=== PATIENT | female | born 1955 | race Caucasian/White ===

== ENCOUNTER → 2021-02-10 15:33 | Outpatient (BNVA) | payer OTHER, SELFPAY | PROVIDERS: PCP Internal Medicine; Visit Provider Nurse Practitioner Family | DX: F11.20 Opioid dependence, uncomplicated (principal); M54.12 Radiculopathy, cervical region; M50.30 Other cervical disc degeneration, unspecified cervical region; M47.812 Spondylosis without myelopathy or radiculopathy, cervical region | CPT/HCPCS: 99202 ==

== ENCOUNTER → 2021-03-17 11:00 | Outpatient (BNVA) | payer OTHER, SELFPAY | PROVIDERS: PCP Internal Medicine; Visit Provider Nurse Practitioner Family | DX: M47.812 Spondylosis without myelopathy or radiculopathy, cervical region (principal); M50.30 Other cervical disc degeneration, unspecified cervical region; M54.12 Radiculopathy, cervical region | CPT/HCPCS: 99212 ==

== ENCOUNTER → 2021-04-14 12:59 | Outpatient (BNVA) | payer OTHER, SELFPAY | PROVIDERS: PCP Internal Medicine; Visit Provider Nurse Practitioner Family | DX: Z51.81 Encounter for therapeutic drug level monitoring (principal); F11.20 Opioid dependence, uncomplicated; M47.812 Spondylosis without myelopathy or radiculopathy, cervical region; M50.30 Other cervical disc degeneration, unspecified cervical region; M54.12 Radiculopathy, cervical region | CPT/HCPCS: 99212 ==

== ENCOUNTER → 2021-05-12 11:03 | Outpatient (BNVA) | payer OTHER, SELFPAY | PROVIDERS: PCP Internal Medicine; Visit Provider Nurse Practitioner Family | DX: Z51.81 Encounter for therapeutic drug level monitoring (principal); F11.20 Opioid dependence, uncomplicated | CPT/HCPCS: 99212 ==

== ENCOUNTER → 2021-06-09 11:29 | Outpatient (BNVA) | payer OTHER, SELFPAY | PROVIDERS: PCP Internal Medicine; Visit Provider Nurse Practitioner Family | DX: M47.812 Spondylosis without myelopathy or radiculopathy, cervical region (principal); M50.30 Other cervical disc degeneration, unspecified cervical region; M54.12 Radiculopathy, cervical region; M25.561 Pain in right knee; M25.562 Pain in left knee; M96.1 Postlaminectomy syndrome, not elsewhere classified; Z79.899 Other long term (current) drug therapy | CPT/HCPCS: 99212 ==

== ENCOUNTER → 2021-07-07 11:33 | Outpatient (BNVA) | payer OTHER, SELFPAY | PROVIDERS: PCP Internal Medicine; Visit Provider Nurse Practitioner Family | DX: Z51.81 Encounter for therapeutic drug level monitoring (principal); M96.1 Postlaminectomy syndrome, not elsewhere classified; M47.812 Spondylosis without myelopathy or radiculopathy, cervical region; M50.30 Other cervical disc degeneration, unspecified cervical region; R51.9 Headache, unspecified; G89.29 Other chronic pain; Z79.891 Long term (current) use of opiate analgesic | CPT/HCPCS: 99212 ==

== ENCOUNTER → 2021-08-04 11:28 | Outpatient (BNVA) | payer OTHER, SELFPAY | PROVIDERS: PCP Internal Medicine; Visit Provider Nurse Practitioner Family | DX: Z79.891 Long term (current) use of opiate analgesic (principal) | CPT/HCPCS: 99211 ==

== ENCOUNTER → 2021-09-01 11:08 | Outpatient (BNVA) | payer OTHER, SELFPAY | PROVIDERS: PCP Internal Medicine; Visit Provider Nurse Practitioner Family | DX: M96.1 Postlaminectomy syndrome, not elsewhere classified (principal); M47.22 Other spondylosis with radiculopathy, cervical region; M50.30 Other cervical disc degeneration, unspecified cervical region; Z79.891 Long term (current) use of opiate analgesic | CPT/HCPCS: 99212 ==

== ENCOUNTER → 2021-09-29 10:30 | Outpatient (BNVA) | payer OTHER, SELFPAY | PROVIDERS: PCP Internal Medicine; Visit Provider Nurse Practitioner Family | DX: Z51.81 Encounter for therapeutic drug level monitoring (principal); F11.20 Opioid dependence, uncomplicated; R51.9 Headache, unspecified; G89.29 Other chronic pain; M25.561 Pain in right knee; M25.562 Pain in left knee; M96.1 Postlaminectomy syndrome, not elsewhere classified; M47.812 Spondylosis without myelopathy or radiculopathy, cervical region; M50.30 Other cervical disc degeneration, unspecified cervical region; M54.12 Radiculopathy, cervical region; M25.511 Pain in right shoulder; Z79.891 Long term (current) use of opiate analgesic | CPT/HCPCS: 99212 ==

== ENCOUNTER → 2021-10-25 10:32 | Outpatient (BNVA) | payer OTHER, SELFPAY | PROVIDERS: PCP Internal Medicine; Visit Provider Nurse Practitioner Family | DX: M47.22 Other spondylosis with radiculopathy, cervical region (principal); M96.1 Postlaminectomy syndrome, not elsewhere classified; M50.30 Other cervical disc degeneration, unspecified cervical region; G89.29 Other chronic pain; R51.9 Headache, unspecified; Z79.891 Long term (current) use of opiate analgesic | CPT/HCPCS: 99212 ==

== ENCOUNTER → 2021-11-22 11:01 | Outpatient (BNVA) | payer OTHER, SELFPAY | PROVIDERS: PCP Internal Medicine; Visit Provider Nurse Practitioner Family | DX: Z79.891 Long term (current) use of opiate analgesic (principal) | CPT/HCPCS: 99211 ==

== ENCOUNTER → 2021-12-22 11:34 | Outpatient (BNVA) | payer OTHER, SELFPAY | PROVIDERS: PCP Internal Medicine; Visit Provider Nurse Practitioner Family | DX: M96.1 Postlaminectomy syndrome, not elsewhere classified (principal); M47.812 Spondylosis without myelopathy or radiculopathy, cervical region; M54.12 Radiculopathy, cervical region; M50.30 Other cervical disc degeneration, unspecified cervical region; M70.61 Trochanteric bursitis, right hip; M70.62 Trochanteric bursitis, left hip; Z79.891 Long term (current) use of opiate analgesic | CPT/HCPCS: 99212 ==

== ENCOUNTER → 2022-01-19 11:24 | Outpatient (BNVA) | payer OTHER, SELFPAY | PROVIDERS: PCP Internal Medicine; Visit Provider Nurse Practitioner Family | DX: Z51.81 Encounter for therapeutic drug level monitoring (principal); F11.20 Opioid dependence, uncomplicated | CPT/HCPCS: 99211 ==

== ENCOUNTER → 2022-02-13 11:32 | Outpatient (BNVA) | payer OTHER, SELFPAY | PROVIDERS: PCP Internal Medicine; Visit Provider Nurse Practitioner Family | DX: M96.1 Postlaminectomy syndrome, not elsewhere classified (principal); M47.812 Spondylosis without myelopathy or radiculopathy, cervical region; M50.30 Other cervical disc degeneration, unspecified cervical region; M25.561 Pain in right knee; M25.562 Pain in left knee; Z79.891 Long term (current) use of opiate analgesic | CPT/HCPCS: 99212 ==

== ENCOUNTER → 2022-03-13 11:29 | Outpatient (BNVA) | payer OTHER, SELFPAY | PROVIDERS: PCP Internal Medicine; Visit Provider Nurse Practitioner Family | DX: Z51.81 Encounter for therapeutic drug level monitoring (principal); F11.20 Opioid dependence, uncomplicated | CPT/HCPCS: 99211 ==

== ENCOUNTER → 2022-04-10 11:01 | Outpatient (BNVA) | payer OTHER, SELFPAY | PROVIDERS: PCP Internal Medicine; Visit Provider Nurse Practitioner Family | DX: M96.1 Postlaminectomy syndrome, not elsewhere classified (principal); M47.812 Spondylosis without myelopathy or radiculopathy, cervical region; M50.30 Other cervical disc degeneration, unspecified cervical region; M25.561 Pain in right knee; M25.562 Pain in left knee; Z79.891 Long term (current) use of opiate analgesic | CPT/HCPCS: 99212 ==

== ENCOUNTER → 2022-05-08 10:59 | Outpatient (BNVA) | payer OTHER, SELFPAY | PROVIDERS: PCP Internal Medicine; Visit Provider Nurse Practitioner Family | DX: Z51.81 Encounter for therapeutic drug level monitoring (principal); F11.20 Opioid dependence, uncomplicated | CPT/HCPCS: 99211 ==

== ENCOUNTER → 2022-06-12 11:01 | Outpatient (BNVA) | payer OTHER, SELFPAY | PROVIDERS: PCP Internal Medicine; Visit Provider Nurse Practitioner Family | DX: Z51.81 Encounter for therapeutic drug level monitoring (principal); M96.1 Postlaminectomy syndrome, not elsewhere classified; M47.812 Spondylosis without myelopathy or radiculopathy, cervical region; M50.30 Other cervical disc degeneration, unspecified cervical region; M25.561 Pain in right knee; M25.562 Pain in left knee; Z79.891 Long term (current) use of opiate analgesic | CPT/HCPCS: 99212 ==

== ENCOUNTER → 2022-07-17 11:34 | Outpatient (BNVA) | payer OTHER, SELFPAY | PROVIDERS: PCP Internal Medicine; Visit Provider Nurse Practitioner Family | DX: Z51.81 Encounter for therapeutic drug level monitoring (principal); M96.1 Postlaminectomy syndrome, not elsewhere classified; M47.812 Spondylosis without myelopathy or radiculopathy, cervical region; M50.30 Other cervical disc degeneration, unspecified cervical region; M25.561 Pain in right knee; M25.562 Pain in left knee; Z79.891 Long term (current) use of opiate analgesic | CPT/HCPCS: 99212 ==

== ENCOUNTER → 2022-08-23 11:33 | Outpatient (BNVA) | payer OTHER, SELFPAY | PROVIDERS: PCP Internal Medicine; Visit Provider Nurse Practitioner Family | DX: M96.1 Postlaminectomy syndrome, not elsewhere classified (principal); M47.812 Spondylosis without myelopathy or radiculopathy, cervical region; M50.30 Other cervical disc degeneration, unspecified cervical region; M25.561 Pain in right knee; M25.562 Pain in left knee; M62.838 Other muscle spasm; Z79.891 Long term (current) use of opiate analgesic | CPT/HCPCS: 99212 ==

== ENCOUNTER 2022-09-27 11:38 | Outpatient (AMB) | payer OTHER, SELFPAY ==
[2022-09-27 11:42] VITALS: BP 126/64; PULSE 76; RESP 14; O2SAT 97; BMI 36.7
--- NOTE | 2022-09-27 11:42 | MHC.OFFVIS ---
Intake Vital Signs 09/27/22 11:42 Height 5 ft 2 in Weight 200 lb 8 oz BMI 36.7 BP 126/64 Blood Pressure Location Lt brachial Position Sitting Respiration 14 Pulse 76 Pulse Source Pulse Oximeter Pulse Oximetry (%) 97 Oxygen Delivery Method Room Air Intake Visit Reasons: PILL COUNT Allergies latex Allergy (Mild, Verified 09/27/22 11:43) burning Penicillins Allergy (Mild, Verified 09/27/22 11:43) Rash Sulfa (Sulfonamide Antibiotics) Allergy (Mild, Verified 09/27/22 11:43) Rash HPI HPI Comments History of Present Illness Details Vivian is a very pleasant 67 year old female who presents to the office today for follow up chronic back pain and chronic opioid therapy management. Patient is prescribed hydrocodone acetaminophen 5-325mg take 1 tablet twice a day as needed. Patient arrived today with the expectation of having 54 pills, she presented 58.5 pills which were counted in the presence of two staff members and returned to the patient in the original prescription bottle. This demonstrates responsible attitude toward patient's opioid medications. Pain is reported today as 3/10 and last dose of pain medication was taken at 09:00 this morning. Pain is well managed on current opioid regimen. Patient denies any recent changes or exacerbations of chronic back pain and states she is able to engage in activities of daily living with minimal interruption due to chronic pain. Patient denies side effects including somnolence, constipation, itching, dyspnea, rash, dizziness or weakness. She would like to work on tapering down her dose and has started to take 1/2 pill in the morning and is tolerating well. She has been more active, swimming and exercising in her pool. She has lost some weight and is feeling good. Prior: Patient returns today for a pill count. Patient is supposed to have #52 pills, in her possession has #53 pills. This demonstrates a responsible attitude in regards to the medication regimen. Patient reports mild to moderate relief on her regimen. She takes Meloxicam for breakthrough pain related to bilateral knee pain with outdoor activities and gardening. Patient reports tizanidine is causing her significant dry mouth and request to change this to Flexeril as this has worked well in the past. Denies any fever, abdominal pain or groin, constipation, nausea, sedation, dizziness, or urinary retention. Patient states opioid medication allows her to be more functional and less symptomatic. Patient is not interested in interventional treatments for her pain generators at this time. [facility] Medical History Anxiety Arthritis Chronic headaches Degeneration of lumbar intervertebral disc Depression Fibromyalgia Obesity (BMI 35.0-39.9 without comorbidity) Osteoporosis Review of Systems Const All systems reviewed & are unremarkable except as noted in HPI and below Physical Exam Vital Signs: Last Vital Signs Pulse 76 09/27/22 11:42 Resp 14 09/27/22 11:42 BP 126/64 09/27/22 11:42 Pulse Ox 97 09/27/22 11:42 Oxygen Delivery Method Room Air 09/27/22 11:42 BMI result Body Mass Index 36.7 General: awake, alert, oriented. Answers questions appropriately. Fully engaged in examination. Skin: warm, dry, intact without visible rashes or lesions. HEENT: Normocephalic. Conjuntivae clear without exudate. Sclera non-icteric. Hearing intact. Cardiac: External chest normal in appearance. Respiratory: No signs of trauma. No signs of respiratory distress. No cough, audible wheezing or stridor. Abdomen: without gross distension. MS: No obvious swelling or deformities. Able to transition from sit to stand unassisted. Ambulates with bilaterally normal heel strike and toe off Neurological: Oriented to person, place, time and situation. Thought process intact. No gait abnormalities appreciated. Psychiatric: Appropriate mood and affect. Good judgment and insight. 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 No obvious signs of diversion, abuse or misuse of the opioid medications. Patient trying to taper down on her dose and would like to try hydrocodone-acetaminophen 5-325mg 1.5tabs daily before next visit utilizing her current prescription that was filled 09/24/2022. She will follow up before next refill is due to discuss how she is tolerating the lower dose. Will send next prescription at that time for decreased quantity pending patient's response. If she is unable to adequately manage her pain on the lower dose will remain on 2 tabs daily as needed and her current prescription will be refilled. Patient to follow-up in the office in 1 month, sooner if needed. All questions and concerns have been answered and patient agrees with the plan. Coding Level of Care Code Est Pt Level 3 (17546) Diagnoses Post laminectomy syndrome M96.1 Spondylosis of cervical spine M47.812 Other cervical disc degeneration, unspecified cervical region M50.30 Opioid contract exists Z79.891 Bilateral knee pain M25.561; M25.562 Muscle spasm M62.838
== END 2022-09-27 11:48 | disposition home or self-care (01) ==
PROVIDERS: PCP Internal Medicine; Visit Provider Registered Nurse Emergency
DX: M96.1 Postlaminectomy syndrome, not elsewhere classified (principal); M47.812 Spondylosis without myelopathy or radiculopathy, cervical region; M50.30 Other cervical disc degeneration, unspecified cervical region; Z79.891 Long term (current) use of opiate analgesic; M25.561 Pain in right knee; M25.562 Pain in left knee; M62.838 Other muscle spasm
CPT/HCPCS: 99213

== ENCOUNTER → 2022-09-27 11:38 | Outpatient (BNVA) | payer OTHER, SELFPAY | PROVIDERS: PCP Internal Medicine; Visit Provider Registered Nurse Emergency | DX: Z51.81 Encounter for therapeutic drug level monitoring (principal); M96.1 Postlaminectomy syndrome, not elsewhere classified; M47.812 Spondylosis without myelopathy or radiculopathy, cervical region; M50.30 Other cervical disc degeneration, unspecified cervical region; M25.561 Pain in right knee; M25.562 Pain in left knee; M62.838 Other muscle spasm; Z79.891 Long term (current) use of opiate analgesic | CPT/HCPCS: 99212 ==

== ENCOUNTER 2022-10-25 10:06 | Outpatient (AMB) | payer OTHER, SELFPAY ==
--- NOTE | 2022-10-25 10:09 | MHC.OFFVIS ---
Intake Vital Signs 10/25/22 10:16 Height 5 ft 2 in Weight 199 lb 4 oz BMI 36.4 BP 131/71 Blood Pressure Location Rt brachial Position Sitting Pulse 63 Pulse Source Pulse Oximeter Pulse Oximetry (%) 97 Oxygen Delivery Method Room Air Intake Visit Reasons: PILL COUNT Intake Note: Vivian comes in today for a pill count to hydrocodone-acetaminophen. Patient should have 0 tablets and presents with 8.5 tablets which she last took today 10/25/22 at 9am. Pain today 04/13. Sprayer Leather Required: No Accompanied by: Self / Same As Patient Allergies latex Allergy (Mild, Verified 10/25/22 10:16) burning Penicillins Allergy (Mild, Verified 10/25/22 10:16) Rash Sulfa (Sulfonamide Antibiotics) Allergy (Mild, Verified 10/25/22 10:16) Rash HPI HPI Comments History of Present Illness Details Patient returns today for a pill count. Patient is supposed to have #0 pills, in her possession has #8.5 pills. This demonstrates a responsible attitude in regards to the medication regimen. Patient reports adequate analgesia on her current regimen. She takes Meloxicam for breakthrough pain related to bilateral knee pain with outdoor activities, gardening and walking. Patient reports she attemtped to titrate down to once daily dose but finds that on most days due to summer activities and walking she continues to require 1.5-2 tabs per day for increase in her bilateral knee and low back pain. Patient reports Flexeril has been working much better for her than than tizanidine. Denies any fever, abdominal pain or groin, constipation, nausea, sedation, dizziness, or urinary retention. Patient states opioid medication allows her to be more functional and less symptomatic. [facility] Medical History Anxiety Arthritis Chronic headaches Degeneration of lumbar intervertebral disc Depression Fibromyalgia Obesity (BMI 35.0-39.9 without comorbidity) Osteoporosis Review of Systems Const All systems reviewed & are unremarkable except as noted in HPI and below Physical Exam Vital Signs: Last Vital Signs Pulse 63 10/25/22 10:16 BP 131/71 10/25/22 10:16 Pulse Ox 97 10/25/22 10:16 Oxygen Delivery Method Room Air 10/25/22 10:16 BMI result Body Mass Index 36.4 General: Appears afebrile. Alert and oriented. Mood and affect appropriate. Follows and participates in conversation appropriately. Respiratory effort is unlabored. Able to transition from sit to stand unassisted. Ambulates with bilaterally normal heel strike and toe off. Psych Appearance: grossly normal and well kempt Mental Status: mental status grossly normal Speech and movement: Normal speech and movement present Affect: normal affect Attitude: cooperative Thought process: Normal thought process present Thought content: Normal thought content present, suicidality (none), no hallucinations and No Depressive thoughts present Insight: Good insight present (Psych) Judgement: Good judgement present (Psych) Assessment & Plan Assessment & Plan (1) Post laminectomy syndrome: Code(s): M96.1 - Postlaminectomy syndrome, not elsewhere classified (2) Spondylosis of cervical spine: Code(s): M47.812 - Spondylosis without myelopathy or radiculopathy, cervical region (3) Other cervical disc degeneration, unspecified cervical region: Code(s): M50.30 - Other cervical disc degeneration, unspecified cervical region (4) Opioid contract exists: Code(s): Z79.891 - [facility] (current) use of opiate analgesic (5) Bilateral knee pain: Code(s): M25.561 - Pain in right knee; M25.562 - Pain in left knee (6) Muscle spasm: Code(s): M62.838 - Other muscle spasm Plan Patient has shown accountability for her medication regimen and the pill count was accurate. There is no evidence of misuse, abuse or diversion at this time. MassPat reviewed. Adequate analgesia without adverse effects, will continue current regime of twice daily as needed. Script for hydrocodone-acetaminophen 5-325 mg BID prn sent today. All questions were answered and the patient is in agreement with the plan. Follow up for a pill count or sooner if needed. Medications: Refilled hydrocodone-acetaminophen 5-325 mg Partial Fill upon patient request. 1 tab PO BID PRN 60 tabs 0RF pain 30 days M47.812 - Spondylosis without myelopathy or radiculopathy, cervical region, M96.1 - Postlaminectomy syndrome, not elsewhere classified, Z79.891 - long term care phlebotomist (current) use of opiate analgesic Coding Level of Care Code Est Pt Level 4 (04902) Diagnoses Post laminectomy syndrome M96.1 Spondylosis of cervical spine M47.812 Other cervical disc degeneration, unspecified cervical region M50.30 Opioid contract exists Z79.891 Bilateral knee pain M25.561; M25.562 Muscle spasm M62.838
[2022-10-25 10:16] VITALS: BP 131/71; PULSE 63; O2SAT 97; BMI 36.4
== END 2022-10-25 10:27 | disposition home or self-care (01) ==
PROVIDERS: PCP Internal Medicine; Visit Provider Nurse Practitioner Family
DX: M96.1 Postlaminectomy syndrome, not elsewhere classified (principal); M47.812 Spondylosis without myelopathy or radiculopathy, cervical region; M50.30 Other cervical disc degeneration, unspecified cervical region; Z79.891 Long term (current) use of opiate analgesic; M25.561 Pain in right knee; M25.562 Pain in left knee; M62.838 Other muscle spasm
CPT/HCPCS: 99214

== ENCOUNTER → 2022-10-25 10:06 | Outpatient (BNVA) | payer OTHER, SELFPAY | PROVIDERS: PCP Internal Medicine; Visit Provider Nurse Practitioner Family | DX: M96.1 Postlaminectomy syndrome, not elsewhere classified (principal); M47.812 Spondylosis without myelopathy or radiculopathy, cervical region; M50.30 Other cervical disc degeneration, unspecified cervical region; M25.561 Pain in right knee; M25.562 Pain in left knee; M62.838 Other muscle spasm; Z79.891 Long term (current) use of opiate analgesic | CPT/HCPCS: 99212 ==

== ENCOUNTER 2022-11-22 10:35 | Outpatient (AMB) | payer OTHER, SELFPAY ==
--- NOTE | 2022-11-22 10:37 | MHC.OFFVIS ---
Intake Vital Signs 11/22/22 10:45 Height 5 ft 2 in Weight 199 lb 4 oz BMI 36.4 BP 177/82 H Blood Pressure Location Rt brachial Position Sitting Pulse 63 Pulse Source Pulse Oximeter Pulse Oximetry (%) 98 Oxygen Delivery Method Room Air Intake Visit Reasons: Pill Count/Lvm Intake Note: Vivian comes in today for a pill count to hydrocodone-acetaminophen, patient should have 2 tablets and presents with 9.5 tablets which she last took 1/2 tablet today 11/22/22 at 10am. Filling Separator Required: No Accompanied by: Self / Same As Patient Allergies latex Allergy (Mild, Verified 11/22/22 10:44) burning Penicillins Allergy (Mild, Verified 11/22/22 10:44) Rash Sulfa (Sulfonamide Antibiotics) Allergy (Mild, Verified 11/22/22 10:44) Rash HPI HPI Comments History of Present Illness Details Patient returns today for a pill count. Patient is supposed to have #2 pills, in her possession has #9.5 pills. This demonstrates a responsible attitude in regards to the medication regimen. Patient reports inadequate analgesia on her current regimen due to recent back strain injury. She tried to manage her acute symptoms with back bracing, NSAIDs and Flexeril at night with some relief in her symptoms. Reports back muscle spasming and stiffness during the day but cannot tolerate Flexeril at daytime due to drowsiness. Denies any fever, abdominal pain or groin, constipation, nausea, sedation, dizziness, urinary retention, weakness, numbness, tingling, bladder or bowel dysfunction or saddle anesthesia. Patient reports she has been under increased stress lately due to ongoing illness of her brother. She reports increased neck pain with muscle spasms. Patient states current opioid medication does not relieve most of her pain but allows her to be more functional and less symptomatic. [facility] Medical History Degeneration of lumbar intervertebral disc Obesity (BMI 35.0-39.9 without comorbidity) Chronic headaches Fibromyalgia Arthritis Anxiety Depression Osteoporosis Review of Systems Const All systems reviewed & are unremarkable except as noted in HPI and below Physical Exam Vital Signs: Last Vital Signs Pulse 63 11/22/22 10:45 BP 177/82 H 11/22/22 10:45 Pulse Ox 98 11/22/22 10:45 Oxygen Delivery Method Room Air 11/22/22 10:45 BMI result Body Mass Index 36.4 General: Appears afebrile. Alert and oriented. Mood and affect appropriate. Follows and participates in conversation appropriately. Respiratory effort is unlabored. Able to transition from sit to stand unassisted. Ambulates with bilaterally normal heel strike and toe off. Back/Spine/Pelvis Cervical Spine: cervical ROM normal, cervical muscular tenderness and No Cervical spine tenderness Thoracic/Lumbar Spine: thoracic and lumbar spine normal to inspection, Lasegue's sign negative, straight leg raise negative bilaterally, pain with thoraco-lumbar ROM, paraspinal muscle tenderness on the right greater than left, No thoracic spinal tenderness and lumbar spinal tenderness (right side) at L4 and at L5 Pelvis: no buttock tenderness and no sciatic notch tenderness Sacroiliac joints: on the right tender to palpation and on the left nontender Psych Appearance: grossly normal and well kempt Mental Status: mental status grossly normal Speech and movement: Normal speech and movement present Affect: normal affect Attitude: cooperative Thought process: Normal thought process present Thought content: Normal thought content present, suicidality (none), no hallucinations and No Depressive thoughts present Insight: Good insight present (Psych) Judgement: Good judgement present (Psych) Assessment & Plan Assessment & Plan (1) Muscle spasm: Code(s): M62.838 - Other muscle spasm (2) Other cervical disc degeneration, unspecified cervical region: Code(s): M50.30 - Other cervical disc degeneration, unspecified cervical region (3) Spondylosis of cervical spine: Code(s): M47.812 - Spondylosis without myelopathy or radiculopathy, cervical region (4) Post laminectomy syndrome: Code(s): M96.1 - Postlaminectomy syndrome, not elsewhere classified (5) Opioid contract exists: Code(s): Z79.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 There is no evidence of misuse, abuse or diversion at this time. [employer]Pat reviewed. Adequate analgesia without adverse effects, will continue current regime of twice daily as needed. Script for hydrocodone-acetaminophen 5-325 mg BID prn sent with advanced date of 11/27/22. All questions were answered and the patient is in agreement with the plan. Follow up for a pill count or sooner if needed. Medications: New methocarbamol 750 mg PO Q8H 5 days 15 tabs 0RF muscle spasms M47.812 - Spondylosis without myelopathy or radiculopathy, cervical region, M50.30 - Other cervical disc degeneration, unspecified cervical region, M62.838 - Other muscle spasm Refilled hydrocodone-acetaminophen 5-325 mg Partial Fill upon patient request. 1 tab PO BID 30 days PRN 60 tabs 0RF pain M47.812 - Spondylosis without myelopathy or radiculopathy, cervical region, M96.1 - Postlaminectomy syndrome, not elsewhere classified, Z79.891 - senior care (current) use of opiate analgesic Discontinued cyclobenzaprine Discontinued Reason: Patient Completed Course 5 mg PO BID 30 days PRN 60 tabs 1RF muscle spasm M47.812 - Spondylosis without myelopathy or radiculopathy, cervical region, M62.838 - Other muscle spasm, M96.1 - Postlaminectomy syndrome, not elsewhere classified Coding Level of Care Code Est Pt Level 4 (84846) Diagnoses Muscle spasm M62.838 Other cervical disc degeneration, unspecified cervical region M50.30 Spondylosis of cervical spine M47.812 Post laminectomy syndrome M96.1 Opioid contract exists Z79.891
[2022-11-22 10:45] VITALS: BP 177/82; PULSE 63; O2SAT 98; BMI 36.4
== END 2022-11-22 10:58 | disposition home or self-care (01) ==
PROVIDERS: PCP Internal Medicine; Visit Provider Nurse Practitioner Family
DX: M62.838 Other muscle spasm (principal); M50.30 Other cervical disc degeneration, unspecified cervical region; M47.812 Spondylosis without myelopathy or radiculopathy, cervical region; M96.1 Postlaminectomy syndrome, not elsewhere classified; Z79.891 Long term (current) use of opiate analgesic
CPT/HCPCS: 99214

== ENCOUNTER → 2022-11-22 10:35 | Outpatient (BNVA) | payer OTHER, SELFPAY | PROVIDERS: PCP Internal Medicine; Visit Provider Nurse Practitioner Family | DX: M96.1 Postlaminectomy syndrome, not elsewhere classified (principal); M47.812 Spondylosis without myelopathy or radiculopathy, cervical region; M50.30 Other cervical disc degeneration, unspecified cervical region; M62.838 Other muscle spasm; Z79.891 Long term (current) use of opiate analgesic | CPT/HCPCS: 99212 ==

== ENCOUNTER 2022-12-21 10:57 | Outpatient (AMB) | payer OTHER, SELFPAY ==
--- NOTE | 2022-12-21 11:02 | A.OFFVIS_ITS ---
Intake Vital Signs 12/21/22 11:13 Height 5 ft 2 in Weight 200 lb 6 oz BMI 36.6 BP 176/72 H Blood Pressure Location Rt brachial Position Sitting Pulse 71 Pulse Source Pulse Oximeter Pulse Oximetry (%) 97 Oxygen Delivery Method Room Air Intake Visit Reasons: PILL COUNT Intake Note: Vivian comes in today for a pill count to hydrocodone-acetaminophen, patient should have 12 tablets and presents with 7.5 tablets. When asked if she had anymore tabs on her she pulled 2 tablets out of her purse for a total of 9.5 tablets. Unfortunately she is still short 2.5 tablets and will result in a suspension from the opioid program. Medical Office Assistant Required: No Accompanied by: Self / Same As Patient Allergies latex Allergy (Mild, Verified 12/21/22 11:14) burning Penicillins Allergy (Mild, Verified 12/21/22 11:14) Rash Sulfa (Sulfonamide Antibiotics) Allergy (Mild, Verified 12/21/22 11:14) Rash HPI HPI Comments History of Present Illness Details Patient returns today for a pill count. Patient is supposed to have #12 pills, in her possession has #9.5 pills. Unfortunately, this demonstrates an irresponsible attitude towards her medication regimen. Her prescription is for two pills per day, therefore she is short 1.5 days. Patient has expressed frustration with the guidelines per our opioid contract but unfortunately her pill count was short for over 1 day. Patient reports she has more medication at home in another opioid pill bottle. She was made aware per opioid policy, all medication has to be kept in its original container. Given her risk is low, she will be suspended for 6 months. In meantime, patient is aware that she will not be eligible for medical management through this office but she can receive interventional treatments for her pain generators which we previously discussed and can revisit again. [facility] Medical History Degeneration of lumbar intervertebral disc Obesity (BMI 35.0-39.9 without comorbidity) Chronic headaches Fibromyalgia Arthritis Anxiety Depression Osteoporosis Review of Systems Const All systems reviewed & are unremarkable except as noted in HPI and below Physical Exam Vital Signs: Last Vital Signs Pulse 71 12/21/22 11:13 BP 176/72 H 12/21/22 11:13 Pulse Ox 97 12/21/22 11:13 Oxygen Delivery Method Room Air 12/21/22 11:13 BMI result Body Mass Index 36.6 General: Appears afebrile. Alert and oriented. Mood and affect appropriate. Follows and participates in conversation appropriately. Respiratory effort is unlabored. Able to transition from sit to stand unassisted. Ambulates with bilaterally normal heel strike and toe off. Psych Appearance: grossly normal Mental Status: mental status grossly normal Speech and movement: Normal speech and movement present Affect: normal affect Attitude: cooperative Thought process: Normal thought process present Thought content: Normal thought content present, suicidality (none), no hallucinations and Depressive thoughts present Insight: Good insight present (Psych) Judgement: Good judgement present (Psych) Assessment & Plan Assessment & Plan (1) Other cervical disc degeneration, unspecified cervical region: Code(s): M50.30 - Other cervical disc degeneration, unspecified cervical region (2) Spondylosis of cervical spine: Code(s): M47.812 - Spondylosis without myelopathy or radiculopathy, cervical region (3) Post laminectomy syndrome: Code(s): M96.1 - Postlaminectomy syndrome, not elsewhere classified (4) Opioid contract exists: Code(s): Z79.891 - custodial (current) use of opiate analgesic (5) Bilateral knee pain: Code(s): M25.561 - Pain in right knee; M25.562 - Pain in left knee Plan Unfortunately, the patient?s pill count was inaccurate for hydrocodone- acetaminophen, which will result in a suspension. Given his risk is MILD, she will be suspended from the opioid program for 6 months. Patient is aware that she will not be eligible for medical management through this office for this period but she can receive interventional treatments for her pain generators. Patient has expressed frustration and understanding with the guidelines and opioid contract but unfortunately her pill count was short for over 1 day. I will send in a compassionate prescription for hydrocodone-acetaminophen and extend this for 4 weeks in which she will need to taper himself off or follow up with her PCP to take over opioid prescribing for 5 months. Previous script for 30 days has been discontinued. Patient will follow up with us in 6 months to re- enter our opioid program and sooner for interventional treatments as needed. Medications: Changed From hydrocodone-acetaminophen 5-325 mg Partial Fill upon patient request. 1 tab PO BID 30 days PRN 60 tabs 0RF pain M47.812 - Spondylosis without myelopathy or radiculopathy, cervical region, M96.1 - Postlaminectomy syndrome, not elsewhere classified, Z79.891 - custodial (current) use of opiate analgesic To hydrocodone-acetaminophen 5-325 mg Please use this prescription to taper off medication, 4 weeks compassionate prescription. 1 tab PO BID 28 days PRN 56 tabs 0RF pain M47.812 - Spondylosis without myelopathy or radiculopathy, cervical region, M96.1 - Postlaminectomy syndrome, not elsewhere classified, Z79.891 - custodial (current) use of opiate analgesic Refilled hydrocodone-acetaminophen 5-325 mg Partial Fill upon patient request. 1 tab PO BID 30 days PRN 60 tabs 0RF pain M47.812 - Spondylosis without myelopathy or radiculopathy, cervical region, M96.1 - Postlaminectomy syndrome, not elsewhere classified, Z79.891 - custodial (current) use of opiate analgesic Coding Level of Care Code Est Pt Level 4 (98081) Diagnoses Other cervical disc degeneration, unspecified cervical region M50.30 Spondylosis of cervical spine M47.812 Post laminectomy syndrome M96.1 Opioid contract exists Z79.891 Bilateral knee pain M25.561; M25.562
[2022-12-21 11:13] VITALS: BP 176/72; PULSE 71; O2SAT 97; BMI 36.6
== END 2022-12-21 11:19 | disposition home or self-care (01) ==
PROVIDERS: PCP Internal Medicine; Visit Provider Nurse Practitioner Family
DX: M50.30 Other cervical disc degeneration, unspecified cervical region (principal); M47.812 Spondylosis without myelopathy or radiculopathy, cervical region; M96.1 Postlaminectomy syndrome, not elsewhere classified; Z79.891 Long term (current) use of opiate analgesic; M25.561 Pain in right knee; M25.562 Pain in left knee
CPT/HCPCS: 99214

== ENCOUNTER → 2022-12-21 10:57 | Outpatient (BNVA) | payer OTHER, SELFPAY | PROVIDERS: PCP Internal Medicine; Visit Provider Nurse Practitioner Family | DX: M79.7 Fibromyalgia (principal); M51.36 Other intervertebral disc degeneration, lumbar region; M81.0 Age-related osteoporosis without current pathological fracture; M47.812 Spondylosis without myelopathy or radiculopathy, cervical region; M25.562 Pain in left knee; M25.561 Pain in right knee; M96.1 Postlaminectomy syndrome, not elsewhere classified; Z79.891 Long term (current) use of opiate analgesic | CPT/HCPCS: 99212 ==

== ENCOUNTER 2023-07-12 08:58 | Outpatient (AMB) | payer MEDICARE, SELFPAY ==
--- NOTE | 2023-07-12 09:04 | MHC.OFFVIS ---
Vital Signs 07/12/23 09:12 Height 5 ft 2 in Weight 203 lb BMI 37.1 BP 157/74 H Blood Pressure Location Rt brachial Position Sitting Pulse 69 Pulse Source Pulse Oximeter Pulse Oximetry (%) 98 Oxygen Delivery Method Room Air Intake Visit Reasons: RE-ENTERING OPIOID PROGRAM AFTER SUSPENSION Intake Note: Pain today 05/11 Patient states that the last time Allergies latex Allergy (Mild, Verified 07/12/23 09:13) burning Penicillins Allergy (Mild, Verified 07/12/23 09:13) Rash Sulfa (Sulfonamide Antibiotics) Allergy (Mild, Verified 07/12/23 09:13) Rash HPI Comments Details: Patient presents today for re-entrance into opioid program. Patient has chronic pain syndrome, fibromyalgia, cervical and lumbar arthritis, shoulder pain. She has received multiple cortisone injections in the past through another Pain clinic with mild and temporary pain relief. Given history of osteoporosis, patient is not a candidate for therapeutic steroidal injections. We reviewed interventional treatments, including neuromodulation with SCS vs PNS trials and RFA procedures that do not require steroidal injections. Patient reports she has been managing her chronic pain with Tylenol, meloxicam and heat/ice therapies. She reports weight gain and decreased physical activity due to daily pain. Denies any recent cough, cold, infection, fever, any significant changes in her medical history, medications or recent hospitalizations.? On evaluation, it was determined that there was a continued need to continue palliative chronic opioid prescribing. Risks and benefits were discussed with the patient. She believes she was more functional and less symptomatic on chronic opioids. Patient also wants to avoid daily NSAID use. MassPAT was reviewed and is consistent with her history. PHQ-9 SCORE: 8 OPIOID RISK STRATIFICATION SURVEY SCORE: 15 Given this, she is deemed to be a MODERATE RISK for chronic opioid addiction. Educated patient on loan secretary effects of opioid use including sexual dysfunction, cardiac, renal and immunosuppressive effects. The patient understands that the medication she is requesting is an opioid, which carries risks of dependence, tolerance, hyperalgesia, addiction, respiratory failure and possibly . She verbalized understanding of this and accepts these risks on her own volition. The patient accepts the responsibility to adhere to the medication use agreement. There is no evidence of misuse, abuse or diversion at this time. She is aware she will be required to attend monthly pill counts and if there are any discrepancies, because of his risk of addiction he will be suspended for ONE YEAR. PRIOR 12/21/22: Patient returns today for a pill count. Patient is supposed to have #12 pills, in her possession has #9.5 pills. Unfortunately, this demonstrates an irresponsible attitude towards her medication regimen. Her prescription is for two pills per day, therefore she is short 1.5 days. Patient has expressed frustration with the guidelines per our opioid contract but unfortunately her pill count was short for over 1 day. Patient reports she has more medication at home in another opioid pill bottle. She was made aware per opioid policy, all medication has to be kept in its original container. Given her risk is low, she will be suspended for 6 months. In meantime, patient is aware that she will not be eligible for medical management through this office but she can receive interventional treatments for her pain generators which we previously discussed and can revisit again. [facility] Medical History (Updated 07/12/23 @ 09:55 by JAYANT Judge) Degeneration of lumbar intervertebral disc Obesity (BMI 35.0-39.9 without comorbidity) Chronic headaches Fibromyalgia Arthritis Anxiety Depression Osteoporosis Review of Systems Const All systems reviewed & are unremarkable except as noted in HPI and below Physical Exam Vital Signs: Last Vital Signs Pulse 69 07/12/23 09:12 BP 157/74 H 07/12/23 09:12 Pulse Ox 98 07/12/23 09:12 Oxygen Delivery Method Room Air 07/12/23 09:12 BMI result Body Mass Index 37.1 General: Appears afebrile. Alert and oriented. Mood and affect appropriate. Follows and participates in conversation appropriately. Respiratory effort is unlabored. No cough. Able to transition from sit to stand unassisted. Ambulates with bilaterally normal heel strike and toe off. Back/Spine/Pelvis Other: Limited lumbar ROM due to pain. Lumbar flexion and extension reproduces mild symptoms. Painful facet loading. Multiple widespread TTPs 16/16 bilaterally, including upper and lower extremities, consistent with fibromyalgia. Cervical Spine: cervical muscular tenderness, pain with cervical ROM and No Cervical spine tenderness Thoracic/Lumbar Spine: thoracic and lumbar spine normal to inspection, pain with thoraco-lumbar ROM, paraspinal muscle tenderness, thoraco-lumbar ROM limited, No thoracic spinal tenderness and lumbar spinal tenderness (L3-S1) Psych Appearance: grossly normal and well kempt Mental Status: mental status grossly normal Speech and movement: Normal speech and movement present and Clear speech present Affect: normal affect Attitude: cooperative Thought process: Normal thought process present Thought content: Normal thought content present, suicidality (none), no hallucinations and Depressive thoughts present Insight: Good insight present (Psych) Judgement: Good judgement present (Psych) Quality Reporting (2019) Depression/Bipolar (159/160/161/177) PHQ-9: Total score: 8 Results Reviewed Results Reviewed: Assessment & Plan Assessment & Plan (1) Other cervical disc degeneration, unspecified cervical region: Code(s): M50.30 - Other cervical disc degeneration, unspecified cervical region Category: Medical (2) Spondylosis of cervical spine: Code(s): M47.812 - Spondylosis without myelopathy or radiculopathy, cervical region Category: Medical (3) Post laminectomy syndrome: Code(s): M96.1 - Postlaminectomy syndrome, not elsewhere classified Category: Medical (4) Chronic headaches: Code(s): R51.9 - Headache, unspecified; G89.29 - Other chronic pain Category: Medical (5) Arthritis: Code(s): M19.90 - Unspecified osteoarthritis, unspecified site Category: Medical (6) Fibromyalgia: Code(s): M79.7 - Fibromyalgia Category: Medical (7) Chronic pain syndrome: Code(s): G89.4 - Chronic pain syndrome Category: Medical Plan Patient presents today for re-entrance into Opioid Program after 6 months suspension. On evaluation, it was determined that there was a continued need to continue palliative chronic opioid prescribing. Risks and benefits were discussed with the patient. She believes he was more functional and less symptomatic on chronic opioids. MassPAT was reviewed and is consistent with her history. Patient is sent for UDS today. She will return to office in 2 weeks to discuss UDS results and start medical management. All questions and concerns have been answered and patient agreed with the plan. Follow-up as needed. Coding Level of Care Code Est Pt Level 4 (37929) Diagnoses Other cervical disc degeneration, unspecified cervical region M50.30 Spondylosis of cervical spine M47.812 Post laminectomy syndrome M96.1 Chronic headaches R51.9; G89.29 Arthritis M19.90 Fibromyalgia M79.7 Chronic pain syndrome G89.4 PHQ-9 Over the last 2 weeks, how often have you been bothered by any of the following problems? 1. Little interest or pleasure in doing things: more than half the days 2. Feeling down, depressed, or hopeless: several days 3. Trouble falling or staying asleep, or sleeping too much: several days 4. Feeling tired or having little energy: several days 5. Poor appetite or overeating: several days 6. Feeling bad about yourself - or that you are a failure or have let yourself or your family down: several days 7. Trouble concentrating on things, such as reading the newspaper or watching television: several days 8. Moving or speaking so slowly that other people could have noticed. Or the opposite - being so fidgety or restless that you have been moving around a lot more than usual: not at all 9. Thoughts that you would be better off or of hurting yourself in some way: not at all Total score: 8 Depression Screening Interpretation: Positive Depression Screening Follow-up: In treatment Depression Screening Done: Yes 48480 - PHQ-9 Billing: Yes Source: Developed by Drs. Manny Hylton, Malgorzata Ricketts, Constantine Hooks and colleagues, with an educational jah from [employer]
[2023-07-12 09:12] VITALS: BP 157/74; PULSE 69; O2SAT 98; BMI 37.1
== END 2023-07-12 09:38 | disposition home or self-care (01) ==
PROVIDERS: PCP Internal Medicine; Visit Provider Nurse Practitioner Family
DX: M50.30 Other cervical disc degeneration, unspecified cervical region (principal); M47.812 Spondylosis without myelopathy or radiculopathy, cervical region; M96.1 Postlaminectomy syndrome, not elsewhere classified; R51.9 Headache, unspecified; G89.29 Other chronic pain; M19.90 Unspecified osteoarthritis, unspecified site; M79.7 Fibromyalgia; G89.4 Chronic pain syndrome
CPT/HCPCS: 99214

== ENCOUNTER → 2023-07-12 08:58 | Outpatient (BNVA) | payer OTHER, SELFPAY | PROVIDERS: PCP Internal Medicine; Visit Provider Nurse Practitioner Family | DX: G89.4 Chronic pain syndrome (principal); M50.30 Other cervical disc degeneration, unspecified cervical region; M47.812 Spondylosis without myelopathy or radiculopathy, cervical region; M96.1 Postlaminectomy syndrome, not elsewhere classified; G89.29 Other chronic pain; R51.9 Headache, unspecified; M19.90 Unspecified osteoarthritis, unspecified site; M79.7 Fibromyalgia; Z79.891 Long term (current) use of opiate analgesic | CPT/HCPCS: 99212 ==

== ENCOUNTER 2023-07-26 09:56 | Outpatient (REF) | payer MEDICARE, SELFPAY ==
--- NOTE | ~2023-07-26 | XR_ITS ---
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 COMPARISON: None available. TECHNIQUE: 4 views of the right shoulder. 7 views of the cervical spine. FINDINGS: CERVICAL SPINE: Bones are diffusely demineralized. Straightening of the normal cervical lordosis. Mild anterolisthesis of C3 on C4. Advanced degenerative changes with loss of disc space height and hypertrophic change at C3-C4, C4-C5 and C5-C6. C7 poorly visualized due to overlying soft tissue structures. Bilateral facet hypertrophy with neural foraminal encroachment at C3-C7 levels. RIGHT SHOULDER: [id number] degenerative changes in the acromioclavicular joint with joint space narrowing and hypertrophic change. Faint calcifications adjacent to the humeral head. Mild hypertrophic change along the inferior aspect of the glenohumeral joint. Dextroscoliosis of the imaged upper thoracic spine with multilevel degenerative changes. XR/XR cervical spine min 6V IMPRESSION: 1. Advanced degenerative disc disease at C3-C4, C4-C5 and C5-C6. 2. Moderate degenerative changes in the right shoulder. 3. Dextroscoliosis of the imaged upper thoracic spine with multilevel degenerative changes.
--- NOTE | ~2023-07-26 | XR_ITS ---
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 COMPARISON: None available. TECHNIQUE: 4 views of the right shoulder. 7 views of the cervical spine. FINDINGS: CERVICAL SPINE: Bones are diffusely demineralized. Straightening of the normal cervical lordosis. Mild anterolisthesis of C3 on C4. Advanced degenerative changes with loss of disc space height and hypertrophic change at C3-C4, C4-C5 and C5-C6. C7 poorly visualized due to overlying soft tissue structures. Bilateral facet hypertrophy with neural foraminal encroachment at C3-C7 levels. RIGHT SHOULDER: [id number] degenerative changes in the acromioclavicular joint with joint space narrowing and hypertrophic change. Faint calcifications adjacent to the humeral head. Mild hypertrophic change along the inferior aspect of the glenohumeral joint. Dextroscoliosis of the imaged upper thoracic spine with multilevel degenerative changes. XR/XR shoulder RT min 2V IMPRESSION: 1. Advanced degenerative disc disease at C3-C4, C4-C5 and C5-C6. 2. Moderate degenerative changes in the right shoulder. 3. Dextroscoliosis of the imaged upper thoracic spine with multilevel degenerative changes.
== END 2023-07-26 09:57 | disposition home or self-care (01) ==
LOC: HO.XRAY 09:56
PROVIDERS: PCP Internal Medicine; Visit Provider Nurse Practitioner Family
DX: M47.812 Spondylosis without myelopathy or radiculopathy, cervical region (principal); M50.30 Other cervical disc degeneration, unspecified cervical region; M25.511 Pain in right shoulder; G89.4 Chronic pain syndrome; Z79.891 Long term (current) use of opiate analgesic
CPT/HCPCS: 72052; 73030; 99212

== ENCOUNTER 2023-07-26 09:56 | Outpatient (AMB) | payer MEDICARE, SELFPAY ==
[2023-07-26 10:05] VITALS: BP 161/78; PULSE 73; O2SAT 96; BMI 37.1
--- NOTE | 2023-07-26 10:05 | A.OFFVIS_ITS ---
Vital Signs 07/26/23 10:05 Height 5 ft 2 in Weight 203 lb BMI 37.1 BP 161/78 H Blood Pressure Location Rt brachial Position Sitting Pulse 73 Pulse Source Pulse Oximeter Pulse Oximetry (%) 96 Oxygen Delivery Method Room Air Intake Visit Reasons: 2 week Follow Up Intake Note: Pain today 06/11 Surveillance Supervisor Required: No Accompanied by: Self / Same As Patient Allergies latex Allergy (Mild, Verified 07/26/23 10:06) burning Penicillins Allergy (Mild, Verified 07/26/23 10:06) Rash Sulfa (Sulfonamide Antibiotics) Allergy (Mild, Verified 07/26/23 10:06) Rash HPI Comments Details: Patient returns to the office to discuss her UDS results and start medical management as well as discuss interventional treatments for chronic neck and right shoulder pain. She denies any changes to medications, medical history or recent hospitalizations. UDS was consistent. Per risk assessment, she is at moderate risk for adverse effects from opioids. PHQ score was 15. Detailed risk assessment scanned under activity tab. Contract reviewed and signed. Patient reports chronic neck and right shoulder pain with limited range of motion, stiffness and spasming. She was previously seen at [facility] and received multiple injections with good results as well as underwent Neurosurgical evaluation for significant cervical degenerative disc disease but opted out of surgery. We will proceed with updating her imaging and plan for diagnostic cervical medial branch blocks as initial steps. Patient denies any fever, chills, dizziness, visual changes, shortness of breaths, chest pain, gait imbalance, bladder or bowel dysfunction or saddle anesthesia. PRIOR: Patient presents today for re-entrance into opioid program. Patient has chronic pain syndrome, fibromyalgia, cervical and lumbar arthritis, shoulder pain. She has received multiple cortisone injections in the past through another Pain clinic with mild and temporary pain relief. Given history of osteoporosis, patient is not a candidate for therapeutic steroidal injections. We reviewed interventional treatments, including neuromodulation with SCS vs PNS trials and RFA procedures that do not require steroidal injections. Patient reports she has been managing her chronic pain with Tylenol, meloxicam and heat/ice therapies. She reports weight gain and decreased physical activity due to daily pain. Denies any recent cough, cold, infection, fever, any significant changes in her medical history, medications or recent hospitalizations.? On evaluation, it was determined that there was a continued need to continue palliative chronic opioid prescribing. Risks and benefits were discussed with the patient. She believes she was more functional and less symptomatic on chronic opioids. Patient also wants to avoid daily NSAID use. MassPAT was reviewed and is consistent with her history. PHQ-9 SCORE: 8 OPIOID RISK STRATIFICATION SURVEY SCORE: 15 Given this, she is deemed to be a MODERATE RISK for chronic opioid addiction. Educated patient on emt intermediate effects of opioid use including sexual dysfunction, cardiac, renal and immunosuppressive effects. The patient understands that the medication she is requesting is an opioid, which carries risks of dependence, tolerance, hyperalgesia, addiction, respiratory failure and possibly . She verbalized understanding of this and accepts these risks on her own volition. The patient accepts the responsibility to adhere to the medication use agreement. There is no evidence of misuse, abuse or diversion at this time. She is aware she will be required to attend monthly pill counts and if there are any discrepancies, because of his risk of addiction he will be suspended for ONE YEAR. PRIOR 12/21/22: Patient returns today for a pill count. Patient is supposed to have #12 pills, in her possession has #9.5 pills. Unfortunately, this demonstrates an irresponsible attitude towards her medication regimen. Her prescription is for two pills per day, therefore she is short 1.5 days. Patient has expressed frus tration with the guidelines per our opioid contract but unfortunately her pill count was short for over 1 day. Patient reports she has more medication at home in another opioid pill bottle. She was made aware per opioid policy, all medication has to be kept in its original container. Given her risk is low, she will be suspended for 6 months. In meantime, patient is aware that she will not be eligible for medical management through this office but she can receive interventional treatments for her pain generators which we previously discussed and can revisit again. [facility] Medical History Degeneration of lumbar intervertebral disc Obesity (BMI 35.0-39.9 without comorbidity) Chronic headaches Fibromyalgia Arthritis Anxiety Depression Osteoporosis Review of Systems Const All systems reviewed & are unremarkable except as noted in HPI and below Physical Exam Vital Signs: Last Vital Signs Pulse 73 07/26/23 10:05 BP 161/78 H 07/26/23 10:05 Pulse Ox 96 07/26/23 10:05 Oxygen Delivery Method Room Air 07/26/23 10:05 BMI result Body Mass Index 37.1 General: Appears afebrile. Alert and oriented. Mood and affect appropriate. Follows and participates in conversation appropriately. Respiratory effort is unlabored. No cough. Able to transition from sit to stand unassisted. Ambulates with bilaterally normal heel strike and toe off. Neck Other: Patient with decreased cervical ROM in all planes/especially with left lateral rotation. Reports increased pain with cervical extension and flexion. Spurling compression test negative. Lhermitte's test was negative. DTR intact, +2 and symmetrical. Patient demonstrated 5/5 motor strength of bilateral upper extremities. 2 + radial pulses. Significant tightness throughout left upper trapezius as well as TTP throughout bilateral upper trapezius muscles. No paravertebral tenderness over facet joints bilaterally. Multiple taut bands palpated throughout bilateral upper trapezius muscles. Neck: Yes no lymphadenopathy, Yes supple, No anterior neck swelling, No torticollis and Yes no JVD Back/Spine/Pelvis Other: Limited lumbar ROM due to pain. Lumbar flexion and extension reproduces mild symptoms. Painful facet loading. Multiple widespread TTPs 16/16 bilaterally, including upper and lower extremities, consistent with fibromyalgia. Cervical Spine: loss of normal cervical lordosis, cervical muscular tenderness, pain with cervical ROM, cervical spasm, No Cervical spine tenderness and No step off deformity Thoracic/Lumbar Spine: thoracic and lumbar spine normal to inspection, Lasegue's sign negative, straight leg raise negative bilaterally, pain with thoraco-lumbar ROM, paraspinal muscle tenderness, thoraco-lumbar ROM limited, No thoracic spinal tenderness and lumbar spinal tenderness (L3-S1) Psych Appearance: grossly normal and well kempt Mental Status: mental status grossly normal Speech and movement: Normal speech and movement present and Clear speech present Affect: normal affect Attitude: cooperative Thought process: Normal thought process present Thought content: Normal thought content present, suicidality (none), no hallucinations and Depressive thoughts present Insight: Good insight present (Psych) Judgement: Good judgement present (Psych) Assessment & Plan Assessment & Plan (1) Spondylosis of cervical spine: Code(s): M47.812 - Spondylosis without myelopathy or radiculopathy, cervical region Category: Medical (2) Opioid contract exists: 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 UDS was consistent. Per risk assessment, she is at moderate risk for adverse effects from opioids. PHQ score was 15. Detailed risk assessment scanned under activity tab. Contract reviewed and signed. Script sent for hydrocodone-acetaminophen 5-325 mg once a day per patient's request. She was previously taken BID prn but prefers to take once a day and pursue interventional treatments for her chronic neck and shoulder pain. Script sent today for #15 tabs for 15 days with follow up in 2 weeks. Pharmacy was notified of cancelled extra scripts as noted below. Discussed reasonable expectations for pain relief with the goal for mild, tolerable pain that allows the patient to function. Cervical spine and shoulder imaging to assess degree of degenerative changes, any subluxation, listhesis, compression fractures or pars defects. Briefly discussed diagnostic cervical medial branch blocks for potential Sprint PNS trial versus RFA procedure. Informational pamphlet provided to patient. Continue home exercise program, good posture, adequate hydration, muscle relaxan ts, NSAIDs prn, and topical applications. All questions and concerns have been answered and patient agreed with the treatment plan. Follow-up in 2 weeks for pill count/x-ray results and sooner as needed. Orders: Orders XR cervical spine min 6V Today M47.812 - Spondylosis without myelopathy or radiculopathy, cervical region, M50.30 - Other cervical disc degeneration, unspecified cervical region XR shoulder RT min 2V Today M25.511 - Pain in right shoulder Medications: New naloxone 4 mg/actuation (Narcan) spray 1 dose into ONE nostril; alternate nostrils w each dose until help arrives 4 mg intranasal Q2M PRN 2 ea 0RF opioid overdose G89.4 - Chronic pain syndrome, M47.812 - Spondylosis without myelopathy or radiculopathy, cervical region, M96.1 - Postlaminectomy syndrome, not elsewhere classified, 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 1 tab PO BID 30 days PRN 60 tabs 0RF pain M47.812 - Spondylosis without myelopathy or radiculopathy, cervical region, M96.1 - Postlaminectomy syndrome, not elsewhere classified, Z79.891 - care home (current) use of opiate analgesic To hydrocodone-acetaminophen 5-325 mg Partial Fill upon patient request. 1 tab PO BID 15 days PRN 30 tabs 0RF pain M47.812 - Spondylosis without myelopathy or radiculopathy, cervical region, M96.1 - Postlaminectomy syndrome, not elsewhere classified, Z79.891 - care home (current) use of opiate analgesic From hydrocodone-acetaminophen 5-325 mg Partial Fill upon patient request. 1 tab PO BID 15 days PRN 30 tabs 0RF pain M47.812 - Spondylosis without myelopathy or radiculopathy, cervical region, M96.1 - Postlaminectomy syndrome, not elsewhere classified, Z79.891 - care home (current) use of opiate analgesic To hydrocodone-acetaminophen 5-325 mg Partial Fill upon patient request. 1 tab PO DAILY 15 days PRN 30 tabs 0RF pain M47.812 - Spondylosis without myelopathy or radiculopathy, cervical region, M96.1 - Postlaminectomy syndrome, not elsewhere classified, Z79.891 - care home (current) use of opiate analgesic Refilled hydrocodone-acetaminophen 5-325 mg Partial Fill upon patient request. 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
== END 2023-07-26 10:32 | disposition home or self-care (01) ==
PROVIDERS: PCP Internal Medicine; Visit Provider Nurse Practitioner Family
DX: G89.4 Chronic pain syndrome (principal); M47.812 Spondylosis without myelopathy or radiculopathy, cervical region; M50.30 Other cervical disc degeneration, unspecified cervical region; Z79.891 Long term (current) use of opiate analgesic; M25.511 Pain in right shoulder
CPT/HCPCS: 99214

== ENCOUNTER 2023-08-09 10:34 | Outpatient (AMB) | payer MEDICARE, SELFPAY ==
--- NOTE | 2023-08-09 10:35 | A.OFFVIS_ITS ---
Vital Signs 3 08/09/23 10:41 Height 5 ft 2 in Weight 201 lb 6 oz BMI 36.8 BP 134/65 Blood Pressure Location Rt brachial Position Sitting Pulse 63 Pulse Source Pulse Oximeter Pulse Oximetry (%) 98 Oxygen Delivery Method Room Air Intake Visit Reasons: PILL COUNT Intake Note: Vivian comes in today for a pill count to hydrocodone-acetaminophen, patient should have 1 tablet and presents with 2 tablets which she last took yesterday 08/08/23 at 4pm. 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 Patient is supposed to have #1 pill, in her possession has #2 pills. This demonstrates a responsible attitude in regards to the medication regimen. Patient reports mild to moderate relief on her regimen. She takes Meloxicam and muscle relaxant for breakthrough pain related to bilateral knee pain with outdoor activities and gardening. Denies any fever, abdominal pain or groin, constipation, nausea, sedation, dizziness, or urinary retention. Patient states opioid medication allows her to be more functional and less symptomatic. Patient continues to experience neck pain, worse with extension which radiates to her right shoulder as muscle spasming and stiffness. Denies any numbness or tingling or weakness in bilateral upper extremities. Cervical spine and shoulder x-ray results are pending. We reviewed diagnostic cervical medial branch blocks for potential RFA procedure. She reviewed [employer] PNS brochure at home and is not interested in temporary or permanent implants at this time. Denies any fever, chills, dizziness, visual changes, shortness of breaths, chest pain, gait imbalance, bladder or bowel dysfunction or saddle anesthesia. PRIOR: Patient presents today for re-entrance into opioid program. Patient has chronic pain syndrome, fibromyalgia, cervical and lumbar arthritis, shoulder pain. She has received multiple cortisone injections in the past through another Pain clinic with mild and temporary pain relief. Given history of osteoporosis, patient is not a candidate for therapeutic steroidal injections. We reviewed interventional treatments, including neuromodulation with SCS vs PNS trials and RFA procedures that do not require steroidal injections. Patient reports she has been managing her chronic pain with Tylenol, meloxicam and heat/ice therapies. She reports weight gain and decreased physical activity due to daily pain. Denies any recent cough, cold, infection, fever, any significant changes in her medical history, medications or recent hospitalizations.? On evaluation, it was determined that there was a continued need to continue palliative chronic opioid prescribing. Risks and benefits were discussed with the patient. She believes she was more functional and less symptomatic on chronic opioids. Patient also wants to avoid daily NSAID use. MassPAT was reviewed and is consistent with her history. PHQ-9 SCORE: 8 OPIOID RISK STRATIFICATION SURVEY SCORE: 15 Given this, she is deemed to be a MODERATE RISK for chronic opioid addiction. Educated patient on intermediate manager effects of opioid use including sexual dysfunction, cardiac, renal and immunosuppressive effects. The patient understands that the medication she is requesting is an opioid, which carries risks of dependence, tolerance, hyperalgesia, addiction, respiratory failure and possibly . She verbalized understanding of this and accepts these risks on her own volition. The patient accepts the responsibility to adhere to the medication use agreement. There is no evidence of misuse, abuse or diversion at this time. She is aware she will be required to attend monthly pill counts and if there are any discrepancies, because of his risk of addiction he will be suspended for ONE YEAR. PRIOR 12/21/22: Patient returns today for a pill count. Patient is supposed to have #12 pills, in her possession has #9.5 pills. Unfortunately, this demonstrates an irresponsible attitude towards her medication regimen. Her prescription is for two pills per day, therefore she is short 1.5 days. Patient has expressed frustration with the guidelines per our opioid contract but unfortunately her pill count was short for over 1 day. Patient reports she has more medication at home in another opioid pill bottle. She was made aware per opioid policy, all medication has to be kept in its original container. Given her risk is low, she will be suspended for 6 months. In meantime, patient is aware that she will not be eligible for medical management through this office but she can receive interventional treatments for her pain generators which we previously discussed and can revisit again. [facility] Medical History Degeneration of lumbar intervertebral disc Obesity (BMI 35.0-39.9 without comorbidity) Chronic headaches Fibromyalgia Arthritis Anxiety Depression Osteoporosis Review of Systems Const All systems reviewed & are unremarkable except as noted in HPI and below Physical Exam Vital Signs: Last Vital Signs Pulse 63 08/09/23 10:41 BP 134/65 08/09/23 10:41 Pulse Ox 98 08/09/23 10:41 Oxygen Delivery Method Room Air 08/09/23 10:41 BMI result Body Mass Index 36.8 General: Appears afebrile. No acute distress. Alert and oriented. Mood and affect appropriate. Follows and participates in conversation appropriately. Respiratory effort is unlabored. No cough. Able to transition from sit to stand unassisted. Ambulates with bilaterally normal heel strike and toe off. Neck Neck: Yes no lymphadenopathy, Yes supple, No anterior neck swelling, No torticollis and Yes no JVD Back/Spine/Pelvis Other: Limited lumbar ROM due to pain. Lumbar flexion and extension reproduces mild symptoms. Painful facet loading. Multiple widespread TTPs 16/16 bilaterally, including upper and lower extremities, consistent with fibromyalgia. Cervical Spine: loss of normal cervical lordosis, cervical muscular tenderness, pain with cervical ROM, cervical spasm and No Cervical spine tenderness Thoracic/Lumbar Spine: thoracic and lumbar spine normal to inspection, Lasegue's sign negative, straight leg raise negative bilaterally, pain with thoraco-lumbar ROM, paraspinal muscle tenderness, thoraco-lumbar ROM limited, No thoracic spinal tenderness and lumbar spinal tenderness (L3-S1) Extrem General: Yes capillary refill normal, Yes no clubbing, cyanosis or edema and Yes no calf tenderness Psych Appearance: grossly normal and well kempt Mental Status: mental status grossly normal Speech and movement: Normal speech and movement present and Clear speech present Affect: normal affect Attitude: cooperative Thought process: Normal thought process present Thought content: Normal thought content present, suicidality (none), no hallucinations and Depressive thoughts present Insight: Good insight present (Psych) Judgement: Good judgement present (Psych) Results Reviewed Results Reviewed: Assessment & Plan Assessment & Plan (1) Spondylosis of cervical spine: Code(s): M47.812 - Spondylosis without myelopathy or radiculopathy, cervical region Category: Medical (2) Opioid contract exists: Code(s): Z79.891 - USP (current) use of opiate analgesic Category: Medical (3) Chronic pain syndrome: Code(s): G89.4 - Chronic pain syndrome Category: Medical (4) Other cervical disc degeneration, unspecified cervical region: Code(s): M50.30 - Other cervical disc degeneration, unspecified cervical region Category: Medical (5) Right shoulder pain: Code(s): M25.511 - Pain in right shoulder Category: Medical (6) Fibromyalgia: Code(s): M79.7 - Fibromyalgia Category: Medical (7) Muscle spasm: Code(s): M62.838 - Other muscle spasm Category: Medical (8) Bilateral knee pain: Code(s): M25.561 - Pain in right knee; M25.562 - Pain in left knee Category: Medical Plan Patient has shown accountability for her medication regimen and the pill count was accurate.? There is no evidence of misuse, abuse or diversion at this time. MassPat reviewed. Script sent for hydrocodone-acetaminophen 5-325 mg once a day sent today. Pending cervical spine and right shoulder imaging results. Briefly discussed diagnostic cervical medial branch blocks for potential RFA procedure. Patient is not interested in [employer] PNS trial. Continue home exercise program, good posture, adequate hydration, muscle relaxants, NSAIDs prn, and topical applications. All questions and concerns have been answered and patient agreed with the treatment plan. Follow-up in 4 weeks for pill count/x-ray results and sooner as needed. Medications: Changed 2 From hydrocodone-acetaminophen 5-325 mg Partial Fill upon patient request. 1 tab PO DAILY 8 days PRN 8 tabs 0RF pain M47.812 - Spondylosis without myelopathy or radiculopathy, cervical region, M96.1 - Postlaminectomy syndrome, not elsewhere classified, Z79.891 - USP (current) use of opiate analgesic To hydrocodone-acetaminophen 5-325 mg Partial Fill upon patient request. 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
[2023-08-09 10:41] VITALS: BP 134/65; PULSE 63; O2SAT 98; BMI 36.8
== END 2023-08-09 10:54 | disposition home or self-care (01) ==
PROVIDERS: PCP Internal Medicine; Visit Provider Nurse Practitioner Family
DX: M47.812 Spondylosis without myelopathy or radiculopathy, cervical region (principal); Z79.891 Long term (current) use of opiate analgesic; G89.4 Chronic pain syndrome; M50.30 Other cervical disc degeneration, unspecified cervical region; M25.511 Pain in right shoulder; M79.7 Fibromyalgia; M62.838 Other muscle spasm; M25.561 Pain in right knee; M25.562 Pain in left knee
CPT/HCPCS: 99214

== ENCOUNTER → 2023-08-09 10:34 | Outpatient (BNVA) | payer MEDICARE, SELFPAY | PROVIDERS: PCP Internal Medicine; Visit Provider Nurse Practitioner Family | DX: M47.812 Spondylosis without myelopathy or radiculopathy, cervical region (principal); G89.4 Chronic pain syndrome; M50.30 Other cervical disc degeneration, unspecified cervical region; M25.511 Pain in right shoulder; M79.7 Fibromyalgia; M62.838 Other muscle spasm; M25.561 Pain in right knee; M25.562 Pain in left knee; Z79.891 Long term (current) use of opiate analgesic | CPT/HCPCS: 99212 ==

== ENCOUNTER 2023-09-09 09:39 | Outpatient (AMB) | payer MEDICARE, SELFPAY ==
--- NOTE | 2023-09-09 09:46 | MHC.OFFVIS ---
Vital Signs 09/09/23 09:53 Height 5 ft 2 in Weight 202 lb BMI 36.9 BP 136/73 Blood Pressure Location Rt brachial Position Sitting Pulse 71 Pulse Source Pulse Oximeter Pulse Oximetry (%) 98 Oxygen Delivery Method Room Air Intake Visit Reasons: PILL COUNT Intake Note: Vivian comes in today for a pill count to hydrocodone-acetaminophen, patient should have 1 tablet and presents with 1 tablet which she last took last night 09/08/23 at 8pm. Pain today 6/10 Allergies latex Allergy (Mild, Verified 09/09/23 09:55) burning Penicillins Allergy (Mild, Verified 09/09/23 09:55) Rash Sulfa (Sulfonamide Antibiotics) Allergy (Mild, Verified 09/09/23 09:55) Rash HPI Comments Details: Patient returns today for a pill count. Patient is supposed to have #1 pill, in her possession has #1 pills. This demonstrates a responsible attitude in regards to the medication regimen. Patient reports mild to moderate relief on her regimen. She takes Meloxicam and muscle relaxant for breakthrough pain related to bilateral knee pain with outdoor activities and gardening. Patient reports increased pain in her bilateral lateral hip areas, worse on the left. She cannot sleep on her left side and reports increased pain with gardening or walking. She requests therapeutic injection to address this pain. Denies any fever, abdominal pain or groin, constipation, nausea, sedation, dizziness, or urinary retention. Patient states opioid medication allows her to be more functional and less symptomatic. Patient denies any fever, chills, dizziness, visual changes, shortness of breaths, chest pain, gait imbalance, bladder or bowel dysfunction or saddle anesthesia. PRIOR: Patient presents today for re-entrance into opioid program. Patient has chronic pain syndrome, fibromyalgia, cervical and lumbar arthritis, shoulder pain. She has received multiple cortisone injections in the past through another Pain clinic with mild and temporary pain relief. Given history of osteoporosis, patient is not a candidate for therapeutic steroidal injections. We reviewed interventional treatments, including neuromodulation with SCS vs PNS trials and RFA procedures that do not require steroidal injections. Patient reports she has been managing her chronic pain with Tylenol, meloxicam and heat/ice therapies. She reports weight gain and decreased physical activity due to daily pain. Denies any recent cough, cold, infection, fever, any significant changes in her medical history, medications or recent hospitalizations.? On evaluation, it was determined that there was a continued need to continue palliative chronic opioid prescribing. Risks and benefits were discussed with the patient. She believes she was more functional and less symptomatic on chronic opioids. Patient also wants to avoid daily NSAID use. MassPAT was reviewed and is consistent with her history. PHQ-9 SCORE: 8 OPIOID RISK STRATIFICATION SURVEY SCORE: 15 Given this, she is deemed to be a MODERATE RISK for chronic opioid addiction. Educated patient on intermodal customer service effects of opioid use including sexual dysfunction, cardiac, renal and immunosuppressive effects. The patient understands that the medication she is requesting is an opioid, which carries risks of dependence, tolerance, hyperalgesia, addiction, respiratory failure and possibly . She verbalized understanding of this and accepts these risks on her own volition. The patient accepts the responsibility to adhere to the medication use agreement. There is no evidence of misuse, abuse or diversion at this time. She is aware she will be required to attend monthly pill counts and if there are any discrepancies, because of his risk of addiction he will be suspended for ONE YEAR. PRIOR 12/21/22: Patient returns today for a pill count. Patient is supposed to have #12 pills, in her possession has #9.5 pills. Unfortunately, this demonstrates an irresponsible attitude towards her medication regimen. Her prescription is for two pills per day, therefore she is short 1.5 days. Patient has expressed frustration with the guidelines per our opioid contract but unfortunately her pill count was short for over 1 day. Patient reports she has more medication at home in another opioid pill bottle. She was made aware per opioid policy, all medication has to be kept in its original container. Given her risk is low, she will be suspended for 6 months. In meantime, patient is aware that she will not be eligible for medical management through this office but she can receive interventional treatments for her pain generators which we previously discussed and can revisit again. [facility] Medical History Degeneration of lumbar intervertebral disc Obesity (BMI 35.0-39.9 without comorbidity) Chronic headaches Fibromyalgia Arthritis Anxiety Depression Osteoporosis Review of Systems Const All systems reviewed & are unremarkable except as noted in HPI and below Physical Exam Vital Signs: Last Vital Signs Pulse 71 09/09/23 09:53 BP 136/73 09/09/23 09:53 Pulse Ox 98 09/09/23 09:53 Oxygen Delivery Method Room Air 09/09/23 09:53 BMI result Body Mass Index 36.9 General: Appears afebrile. Alert and oriented. Mood and affect appropriate. Follows and participates in conversation appropriately. Respiratory effort is unlabored. No cough. Able to transition from sit to stand unassisted. Ambulates with bilaterally normal heel strike and toe off. Back/Spine/Pelvis Other: Limited lumbar ROM due to pain. Lumbar flexion and extension reproduces mild symptoms. Painful facet loading. Multiple widespread TTPs 16/16 bilaterally, including upper and lower extremities, consistent with fibromyalgia. Cervical Spine: loss of normal cervical lordosis, cervical muscular tenderness, pain with cervical ROM and No Cervical spine tenderness Thoracic/Lumbar Spine: thoracic and lumbar spine normal to inspection, Lasegue's sign negative, straight leg raise negative bilaterally, pain with thoraco-lumbar ROM, paraspinal muscle tenderness, thoraco-lumbar ROM limited, No thoracic spinal tenderness and lumbar spinal tenderness (L3-S1) Extrem General: Yes capillary refill normal, Yes no clubbing, cyanosis or edema and Yes no calf tenderness Right lower extremity: hip/thigh Details: normal to inspection and tenderness Location: of the hip Location: over the greater trochanter (mild); no swelling and no unusual warmth Left lower extremity: hip/thigh Details: normal to inspection, tenderness Location: of the hip Location: over the great trochanter (moderate-severe) and normal ROM (no groin pain with I/E hip rotations. Mendez test reproduces lateral left hip, not back pain); no swelling, no crepitus and no unusual warmth Psych Appearance: grossly normal and well kempt Mental Status: mental status grossly normal Speech and movement: Normal speech and movement present and Clear speech present Affect: normal affect Attitude: cooperative Thought process: Normal thought process present Thought content: Normal thought content present, suicidality (none), no hallucinations and Depressive thoughts present Insight: Good insight present (Psych) Judgement: Good judgement present (Psych) Results Reviewed Results Reviewed: XR CERVICAL SPINE XR RIGHT SHOULDER 07/26/23 CLINICAL INFORMATION: Spondylolysis without myelopathy or radiculopathy, no injury, chest pain, right shoulder and neck. FINDINGS: CERVICAL SPINE: Bones are diffusely demineralized. Straightening of the normal cervical lordosis. Mild anterolisthesis of C3 on C4. Advanced degenerative changes with loss of disc space height and hypertrophic change at C3-C4, C4-C5 and C5-C6. C7 poorly visualized due to overlying soft tissue structures. Bilateral facet hypertrophy with neural foraminal encroachment at C3-C7 levels. RIGHT SHOULDER: [id number] degenerative changes in the acromioclavicular joint with joint space narrowing and hypertrophic change. Faint calcifications adjacent to the humeral head. Mild hypertrophic change along the inferior aspect of the glenohumeral joint. Dextroscoliosis of the imaged upper thoracic spine with multilevel degenerative changes. IMPRESSION: 1. Advanced degenerative disc disease at C3-C4, C4-C5 and C5-C6. 2. Moderate degenerative changes in the right shoulder. 3. Dextroscoliosis of the imaged upper thoracic spine with multilevel degenerative changes. 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 Category: Medical (3) Chronic pain syndrome: Code(s): G89.4 - Chronic pain syndrome Category: Medical (4) Other cervical disc degeneration, unspecified cervical region: Code(s): M50.30 - Other cervical disc degeneration, unspecified cervical region Category: Medical (5) Fibromyalgia: Code(s): M79.7 - Fibromyalgia Category: Medical (6) Muscle spasm: Code(s): M62.838 - Other muscle spasm Category: Medical (7) Greater trochanteric bursitis of left hip: Code(s): M70.62 - Trochanteric bursitis, left hip Category: Medical Plan Patient has shown accountability for her medication regimen and the pill count was accurate.? There is no evidence of misuse, abuse or diversion at this time. MassPat reviewed. Script sent for hydrocodone-acetaminophen 5-325 mg once a day sent today. Continue home exercise program, good posture, adequate hydration, muscle relaxants, NSAIDs prn, and topical applications. Schedule Left Greater Trochanteric Bursa Steroid Injection with local and fluoroscopy. Expectations, risks and benefits were reviewed. Patient is aware she will be contacted to schedule this procedure. All questions and concerns have been answered and patient agreed with the treatment plan. Follow-up in 4 weeks for pill count/x-ray results and sooner as needed. Medications: New diclofenac sodium 1% (Arthritis Pain (diclofenac)) 4 grams topical QID 100 grams 1RF G89.4 - Chronic pain syndrome, M70.61 - Trochanteric bursitis, right hip, M70.62 - Trochanteric bursitis, left hip Refilled hydrocodone-acetaminophen 5-325 mg Partial Fill upon patient request. 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
[2023-09-09 09:53] VITALS: BP 136/73; PULSE 71; O2SAT 98; BMI 36.9
== END 2023-09-09 10:06 | disposition home or self-care (01) ==
PROVIDERS: PCP Internal Medicine; Visit Provider Nurse Practitioner Family
DX: G89.4 Chronic pain syndrome (principal); M47.812 Spondylosis without myelopathy or radiculopathy, cervical region; M50.30 Other cervical disc degeneration, unspecified cervical region; Z79.891 Long term (current) use of opiate analgesic; M79.7 Fibromyalgia; M62.838 Other muscle spasm; M70.62 Trochanteric bursitis, left hip
CPT/HCPCS: 99214

== ENCOUNTER → 2023-09-09 09:39 | Outpatient (BNVA) | payer MEDICARE, SELFPAY | PROVIDERS: PCP Internal Medicine; Visit Provider Nurse Practitioner Family | DX: M47.812 Spondylosis without myelopathy or radiculopathy, cervical region (principal); G89.4 Chronic pain syndrome; M50.30 Other cervical disc degeneration, unspecified cervical region; M79.7 Fibromyalgia; M62.838 Other muscle spasm; M70.62 Trochanteric bursitis, left hip; Z79.891 Long term (current) use of opiate analgesic | CPT/HCPCS: 99212 ==

== ENCOUNTER 2023-09-13 08:55 | Outpatient (AMB) | payer MEDICARE, SELFPAY ==
--- NOTE | 2023-09-13 09:01 | A.OFFVIS_ITS ---
Vital Signs 09/13/23 09:02 Height 5 ft 2 in Weight 201 lb BMI 36.8 BP 134/68 Blood Pressure Location Lt brachial Position Sitting Respiration 14 Pulse 73 Pulse Source Pulse Oximeter Pulse Oximetry (%) 98 Oxygen Delivery Method Room Air Intake Visit Reasons: Left theraputic GTB inj Allergies latex Allergy (Mild, Verified 09/13/23 09:05) burning Penicillins Allergy (Mild, Verified 09/13/23 09:05) Rash Sulfa (Sulfonamide Antibiotics) Allergy (Mild, Verified 09/13/23 09:05) Rash Medication List - Last Reconciled 09/13/23 by Shaniqua Juarez LPN diclofenac sodium 1% (Arthritis Pain (diclofenac)) 4 grams topical QID fluoxetine 60 mg PO QAM hydrocodone-acetaminophen 5-325 mg 1 tab PO DAILY PRN 30 days meloxicam 7.5 mg PO DAILY PRN methocarbamol 750 mg PO Q8H 5 days naloxone 4 mg/actuation (Narcan) 4 mg intranasal Q2M PRN topiramate 50 mg PO BID 90 days HPI HPI Left theraputic GTB inj: Details: 68-year-old female who presents today to the office for a left therapeutic GTB injection. Denies any recent cough, cold, infection, fever or other significant changes in medical history since last office visit.? Patient reports mild to moderate relief on her regimen. She takes meloxicam and muscle relaxant for breakthrough pain related to bilateral knee pain with outdoor activities and gardening. Patient reports increased pain in her bilateral lateral hip areas, worse on the left. She cannot sleep on her left side and reports increased pain with gardening or walking. She has received multiple cortisone injections in the past through another Pain clinic with mild and temporary pain relief. She was previously seen at [facility] and received multiple injections with good results as well as underwent Neurosurgical evaluation for significant cervical degenerative disc disease but opted out of surgery. She has arthritis and has been following up with arthritis treatment center on [facility]. She had blood work to check rheumatoid arthritis. Her sister has rheumatoid arthritis. She was diagnosed with fibromyalgia. Her mother is 86-year-old and was diagnosed with osteoporosis. [facility] Medical History Degeneration of lumbar intervertebral disc Obesity (BMI 35.0-39.9 without comorbidity) Chronic headaches Fibromyalgia Arthritis Anxiety Depression Osteoporosis Review of Systems Const All systems reviewed & are unremarkable except as noted in HPI and below Physical Exam Vital Signs: Last Vital Signs Pulse 73 09/13/23 09:02 Resp 14 09/13/23 09:02 BP 134/68 09/13/23 09:02 Pulse Ox 98 09/13/23 09:02 Oxygen Delivery Method Room Air 09/13/23 09:02 BMI result Body Mass Index 36.8 General: Appears afebrile. Alert and oriented. Mood and affect appropriate. Follows and participates in conversation appropriately. Respiratory effort is unlabored. Able to transition from sit to stand unassisted. Ambulates with bilaterally normal heel strike and toe off. Office Procedures Joint Injection/Drain Joint Injection/Drain Details: Left Greater Trochanteric Bursa Steroid Injection, US guided. After informed written consent was obtained, the patient was placed in the lateral position. Pre-procedure oxygen saturation, heart rate, and blood pressure were recorded. The skin was prepped with Chloroprep, and draped in a sterile fashion. With the use of ultrasound, the greater trochanter was identified. A 21-gauge 80 mm needle was then advanced toward the trochanteric bursa under ultrasound visualization. Once in position, and after negative aspiration, 40 mg of Kenalog mixed with 0.5% ropivacaine (3mL total). There was no evidence of paresthesia throughout needle placement. The needle was withdrawn. The patient tolerated the procedure well and there was no evidence of procedural complications. The patient was observed in the procedure room for 20 minutes, vitals were stable, and discharged in stable condition. Coding 83349 - Glenohumeral/Tronchanteric Bursa/Intraarticular (Left, US guided) Procedure code (CPT) selection complete Results Reviewed Results Reviewed: No imaging is available for review. Assessment & Plan Assessment & Plan (1) Greater trochanteric bursitis of left hip: Code(s): M70.62 - Trochanteric bursitis, left hip Category: Medical Plan Patient is status post Left Greater Trochanteric Bursa Steroid Injection, US guided. Patient tolerated procedure well and was discharged home in stable condition with discharge instructions.? All questions were answered. We will follow-up in two weeks via telephone or in clinic to assess response to therapy. A follow-up appointment was made during today's visit. Scribed for Dr. Tenorio by lisa Jc scribe, on 09/13/2023. I, Dr. Tenorio, have personally reviewed and agree with the information entered by the scribe. Coding Level of Care Code Procedure Only Diagnoses Greater trochanteric bursitis of left hip M70.62 CPT Codes Coding - Joint 7: 22722 - Glenohumeral/Tronchanteric Bursa/Intraarticular ([id number])
[2023-09-13 09:02] VITALS: BP 134/68; PULSE 73; RESP 14; O2SAT 98; BMI 36.8
== END 2023-09-13 09:29 | disposition home or self-care (01) ==
PROVIDERS: PCP Internal Medicine; Visit Provider Internal Medicine
DX: M70.62 Trochanteric bursitis, left hip (principal)
CPT/HCPCS: 20611

== ENCOUNTER → 2023-09-13 08:55 | Outpatient (BNVA) | payer MEDICARE, SELFPAY | PROVIDERS: PCP Internal Medicine; Visit Provider Internal Medicine | DX: M70.62 Trochanteric bursitis, left hip (principal) | CPT/HCPCS: 20611; J2795; J3301 ==

== ENCOUNTER 2023-10-07 11:19 | Outpatient (AMB) | payer MEDICARE, SELFPAY ==
--- NOTE | 2023-10-07 11:20 | A.OFFVIS_ITS ---
Vital Signs 10/07/23 11:27 Height 5 ft 2 in Weight 203 lb BMI 37.1 BP 131/65 Blood Pressure Location Rt brachial Position Sitting Pulse 67 Pulse Source Pulse Oximeter Pulse Oximetry (%) 98 Oxygen Delivery Method Room Air Intake Visit Reasons: PILL COUNT Intake Note: Vivian comes in today for a pill count to hydrocodone-acetaminophen, patient should have 2 tablets and presents with 3 tablets which she last took last night 10/06/23 at 7pm. 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 Patient is supposed to have #2 pills, in her possession has #3 pills. This demonstrates a responsible attitude in regards to the medication regimen. Patient reports adequate analgesia on her regimen. She takes Meloxicam, Tylenol, and muscle relaxant for breakthrough pain as needed related to bilateral knee pain with outdoor activities and gardening. Patient reports 100% ongoing pain relief in the left lateral hip status post recent bursa injection with Dr. Tenorio with improved functioning, mobility and sleep. Denies any fever, shortness of breaths, abdominal pain or groin, constipation, nausea, sedation, dizziness, or urinary retention. Past Procedures: 09/13/23: Left Therapeutic GTB injection-100% ongoing pain relief PRIOR: Patient presents today for re-entrance into opioid program. Patient has chronic pain syndrome, fibromyalgia, cervical and lumbar arthritis, shoulder pain. She has received multiple cortisone injections in the past through another Pain clinic with mild and temporary pain relief. Given history of osteoporosis, patient is not a candidate for therapeutic steroidal injections. We reviewed interventional treatments, including neuromodulation with SCS vs PNS trials and RFA procedures that do not require steroidal injections. Patient reports she has been managing her chronic pain with Tylenol, meloxicam and heat/ice therapies. She reports weight gain and decreased physical activity due to daily pain. Denies any recent cough, cold, infection, fever, any significant changes in her medical history, medications or recent hospitalizations.? On evaluation, it was determined that there was a continued need to continue palliative chronic opioid prescribing. Risks and benefits were discussed with the patient. She believes she was more functional and less symptomatic on chr onic opioids. Patient also wants to avoid daily NSAID use. MassPAT was reviewed and is consistent with her history. PHQ-9 SCORE: 8 OPIOID RISK STRATIFICATION SURVEY SCORE: 15 Given this, she is deemed to be a MODERATE RISK for chronic opioid addiction. 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 The patient understands that the medication she is requesting is an opioid, which carries risks of dependence, tolerance, hyperalgesia, addiction, respiratory failure and possibly . She verbalized understanding of this and accepts these risks on her own volition. The patient accepts the responsibility to adhere to the medication use agreement. There is no evidence of misuse, abuse or diversion at this time. She is aware she will be required to attend monthly pill counts and if there are any discrepancies, because of his risk of addiction he will be suspended for ONE YEAR. PRIOR 12/21/22: Patient returns today for a pill count. Patient is supposed to have #12 pills, in her possession has #9.5 pills. Unfortunately, this demonstrates an irresponsible attitude towards her medication regimen. Her prescription is for two pills per day, therefore she is short 1.5 days. Patient has expressed frustration with the guidelines per our opioid contract but unfortunately her pill count was short for over 1 day. Patient reports she has more medication at home in another opioid pill bottle. She was made aware per opioid policy, all medication has to be kept in its original container. Given her risk is low, she will be suspended for 6 months. In meantime, patient is aware that she will not be eligible for medical management through this office but she can receive interventional treatments for her pain generators which we previously discussed and can revisit again. [facility] Medical History Degeneration of lumbar intervertebral disc Obesity (BMI 35.0-39.9 without comorbidity) Chronic headaches Fibromyalgia Arthritis Anxiety Depression Osteoporosis Review of Systems Const All systems reviewed & are unremarkable except as noted in HPI and below Physical Exam Vital Signs: Last Vital Signs Pulse 67 10/07/23 11:27 BP 131/65 10/07/23 11:27 Pulse Ox 98 10/07/23 11:27 Oxygen Delivery Method Room Air 10/07/23 11:27 BMI result Body Mass Index 37.1 General: Appears afebrile. Alert and oriented. Mood and affect appropriate. Follows and participates in conversation appropriately. Respiratory effort is unlabored. Able to transition from sit to stand unassisted. Ambulates with bilaterally normal heel strike and toe off. Extrem General: Yes capillary refill normal, Yes no clubbing, cyanosis or edema and Yes no calf tenderness Psych Appearance: grossly normal Mental Status: mental status grossly normal Speech and movement: Normal speech and movement present Affect: normal affect Attitude: cooperative Thought process: Normal thought process present Thought content: Normal thought content present, suicidality (none), no hallucinations and No Depressive thoughts present Insight: Good insight present (Psych) Judgement: Good judgement present (Psych) Results Reviewed Results Reviewed: No imaging is available for review. 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) use of opiate analgesic Category: Medical (3) Chronic pain syndrome: Code(s): G89.4 - Chronic pain syndrome Category: Medical (4) Other cervical disc degeneration, unspecified cervical region: Code(s): M50.30 - Other cervical disc degeneration, unspecified cervical region Category: Medical (5) Fibromyalgia: Code(s): M79.7 - Fibromyalgia Category: Medical (6) Muscle spasm: Code(s): M62.838 - Other muscle spasm Category: Medical (7) Greater trochanteric bursitis of left hip: Code(s): M70.62 - Trochanteric bursitis, left hip Category: Medical Plan Patient has shown accountability for her medication regimen and the pill count was accurate.? There is no evidence of misuse, abuse or diversion at this time. [employer] reviewed. Script sent for hydrocodone-acetaminophen 5-325 mg once a day sent with advanced date of 10/09/23. Continue home exercise program, good posture, adequate hydration, muscle relaxants, NSAIDs prn, and topical applications. Patient is status post Left Greater Trochanteric Bursa Steroid Injection on 09/13/23 with ongoing 100% pain relief with improved functioning, mobility and sleep. All questions and concerns have been answered and patient agreed with the treatment plan. Follow-up in 4 weeks for pill count/x-ray results and sooner as needed. Medications: Refilled hydrocodone-acetaminophen 5-325 mg Partial Fill upon patient request. 1 tab PO DAILY PRN 30 tabs 0RF pain 30 days M47.812 - Spondylosis without myelopathy or radiculopathy, cervical region, M96.1 - Postlaminectomy syndrome, not elsewhere classified, Z79.891 - retirement (current) use of opiate analgesic Coding Level of Care Code Est Pt Level 4 (56916) Diagnoses Spondylosis of cervical spine M47.812 Opioid contract exists Z79.891 Chronic pain syndrome G89.4 Other cervical disc degeneration, unspecified cervical region M50.30 Fibromyalgia M79.7 Muscle spasm M62.838 Greater trochanteric bursitis of left hip M70.62
[2023-10-07 11:27] VITALS: BP 131/65; PULSE 67; O2SAT 98; BMI 37.1
== END 2023-10-07 11:35 | disposition home or self-care (01) ==
PROVIDERS: PCP Internal Medicine; Visit Provider Nurse Practitioner Family
DX: G89.4 Chronic pain syndrome (principal); M47.812 Spondylosis without myelopathy or radiculopathy, cervical region; M50.30 Other cervical disc degeneration, unspecified cervical region; Z79.891 Long term (current) use of opiate analgesic; M79.7 Fibromyalgia; M62.838 Other muscle spasm; M70.62 Trochanteric bursitis, left hip
CPT/HCPCS: 99214

== ENCOUNTER → 2023-10-07 11:19 | Outpatient (BNVA) | payer MEDICARE, SELFPAY | PROVIDERS: PCP Internal Medicine; Visit Provider Nurse Practitioner Family | DX: M47.812 Spondylosis without myelopathy or radiculopathy, cervical region (principal); G89.4 Chronic pain syndrome; M50.30 Other cervical disc degeneration, unspecified cervical region; M79.7 Fibromyalgia; M62.838 Other muscle spasm; M70.62 Trochanteric bursitis, left hip; M96.1 Postlaminectomy syndrome, not elsewhere classified; Z51.81 Encounter for therapeutic drug level monitoring; Z79.891 Long term (current) use of opiate analgesic | CPT/HCPCS: 99212 ==

== ENCOUNTER 2023-11-05 10:39 | Outpatient (AMB) | payer MEDICARE, SELFPAY ==
--- NOTE | 2023-11-05 10:45 | MHC.OFFVIS ---
Vital Signs 11/05/23 10:51 Height 5 ft 2 in Weight 201 lb 8 oz BMI 36.9 BP 146/67 H Blood Pressure Location Rt brachial Position Sitting Pulse 72 Pulse Source Pulse Oximeter Pulse Oximetry (%) 98 Oxygen Delivery Method Room Air Intake Visit Reasons: PILL COUNT Intake Note: Vivian comes in today for a pill count to hydrocodone-acetaminophen, patient should have 5 tablets and presents with 4.5 tablets which she last took 1/2 tablet today 11/05/23 at 10am. Pain today 09/10. 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 Patient is supposed to have #5 pills, in her possession has #4.5 pills. This demonstrates a responsible attitude in regards to the medication regimen. Patient reports mild-moderate analgesia on her regimen. She reports recent exacerbation of low back pain with yardwork and gardening last week. Reports minimal pain relief with Meloxicam, Tylenol, and muscle relaxant. On today's exam, she is experiencing significant discogenic and right sided radicular low back pain with SIJ components. Lumbar extension and flexion forward causes [id number] pain. We will proceed with updating her spine imaging prior to interventional treatments. Denies any fever, chills, shortness of breaths, abdominal pain or groin, constipation, nausea, sedation, dizziness, urinary retention, weakness, bladder or bowel dysfunction, or saddle anesthesia. Past Procedures: 09/13/23: Left Therapeutic GTB injection-100% ongoing pain relief PRIOR: Patient presents today for re-entrance into opioid program. Patient has chronic pain syndrome, fibromyalgia, cervical and lumbar arthritis, shoulder pain. She has received multiple cortisone injections in the past through another Pain clinic with mild and temporary pain relief. Given history of osteoporosis, patient is not a candidate for therapeutic steroidal injections. We reviewed interventional treatments, including neuromodulation with SCS vs PNS trials and RFA procedures that do not require steroidal injections. Patient reports she has been managing her chronic pain with Tylenol, meloxicam and heat/ice therapies. She reports weight gain and decreased physical activity due to daily pain. Denies any recent cough, cold, infection, fever, any significant changes in her medical history, medications or recent hospitalizations.? On evaluation, it was determined that there was a continued need to continue palliative chronic opioid prescribing. Risks and benefits were discussed with the patient. She believes she was more functional and less symptomatic on chronic opioids. Patient also wants to avoid daily NSAID use. MassPAT was reviewed and is consistent with her history. PHQ-9 SCORE: 8 OPIOID RISK STRATIFICATION SURVEY SCORE: 15 Given this, she is deemed to be a MODERATE RISK for chronic opioid addiction. 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 The patient understands that the medication she is requesting is an opioid, which carries risks of dependence, tolerance, hyperalgesia, addiction, respiratory failure and possibly . She verbalized understanding of this and accepts these risks on her own volition. The patient accepts the responsibility to adhere to the medication use agreement. There is no evidence of misuse, abuse or diversion at this time. She is aware she will be required to attend monthly pill counts and if there are any discrepancies, because of his risk of addiction he will be suspended for ONE YEAR. PRIOR 12/21/22: Patient returns today for a pill count. Patient is supposed to have #12 pills, in her possession has #9.5 pills. Unfortunately, this demonstrates an irresponsible attitude towards her medication regimen. Her prescription is for two pills per day, therefore she is short 1.5 days. Patient has expressed frustration with the guidelines per our opioid contract but unfortunately her pill count was short for over 1 day. Patient reports she has more medication at home in another opioid pill bottle. She was made aware per opioid policy, all medication has to be kept in its original container. Given her risk is low, she will be suspended for 6 months. In meantime, patient is aware that she will not be eligible for medical management through this office but she can receive interventional treatments for her pain generators which we previously discussed and can revisit again. [facility] Medical History (Updated 11/05/23 @ 11:06 by JAYANT Judge) Degeneration of lumbar intervertebral disc Obesity (BMI 35.0-39.9 without comorbidity) Chronic headaches Fibromyalgia Arthritis Anxiety Depression Osteoporosis Review of Systems Const All systems reviewed & are unremarkable except as noted in HPI and below Physical Exam Vital Signs: Last Vital Signs Pulse 72 11/05/23 10:51 BP 146/67 H 11/05/23 10:51 Pulse Ox 98 11/05/23 10:51 Oxygen Delivery Method Room Air 11/05/23 10:51 BMI result Body Mass Index 36.9 General: Appears afebrile. Alert and oriented. Mood and affect appropriate. Follows and participates in conversation appropriately. Respiratory effort is unlabored. Able to transition from sit to stand unassisted. Ambulates with bilaterally normal heel strike and toe off. General: Yes no CVA tenderness Back/Spine/Pelvis Other: TTP over paraspinals from L4-S1. Repetitive lumbar flexion and axial rotation reproduces moderate-severe pain. Strength 5/5 hip flexion bilaterally. DTR intact and symmetric, no clonus. ARUNA test reproduces lateral hip and lower back pain, bilateral. +Moderate TTP in projection of SIJ areas. Seated SLR testing with dorsiflexion positive on the right. +Mendez?s, Stinchfield, Pelvic Compression and Gaenslen?s test positive bilaterally, right>left. Back: no CVA tenderness Cervical Spine: cervical ROM normal, cervical muscular tenderness, pain with cervical ROM and No Cervical spine tenderness Thoracic/Lumbar Spine: thoracic and lumbar spine normal to inspection, No Thoracic/lumbar spine scar(s), Lasegue's sign positive on the right and diffuse, pain with thoraco-lumbar ROM, paraspinal muscle tenderness, thoraco-lumbar ROM limited, No thoracic spinal tenderness and lumbar spinal tenderness (L4-S1) Pelvis: buttock tenderness bilaterally Sacroiliac joints: bilaterally tender to palpation Extrem General: Yes capillary refill normal, Yes no clubbing, cyanosis or edema and Yes no calf tenderness Psych Appearance: grossly normal Mental Status: mental status grossly normal Speech and movement: Normal speech and movement present Affect: normal affect Attitude: cooperative Thought process: Normal thought process present Thought content: Normal thought content present, suicidality (none), no hallucinations and No Depressive thoughts present Insight: Good insight present (Psych) Judgement: Good judgement present (Psych) Results Reviewed Results Reviewed: No imaging is available for review. Assessment & Plan Assessment & Plan (1) Degeneration of lumbar intervertebral disc: Code(s): M51.36 - Other intervertebral disc degeneration, lumbar region Category: Medical (2) Lumbar radiculopathy: Code(s): M54.16 - Radiculopathy, lumbar region Category: Medical (3) Lumbosacral spondylosis: Code(s): M47.817 - Spondylosis without myelopathy or radiculopathy, lumbosacral region Category: Medical (4) Degeneration of lumbar intervertebral disc: Code(s): M51.36 - Other intervertebral disc degeneration, lumbar region Category: Medical (5) Lumbar radiculopathy: Code(s): M54.16 - Radiculopathy, lumbar region Category: Medical (6) Lumbosacral spondylosis: Code(s): M47.817 - Spondylosis without myelopathy or radiculopathy, lumbosacral region Category: Medical (7) Spondylosis of cervical spine: Code(s): M47.812 - Spondylosis without myelopathy or radiculopathy, cervical region Category: Medical (8) Opioid contract exists: Code(s): 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 There is no evidence of misuse, abuse or diversion at this time. [employer] reviewed. Script sent for hydrocodone-acetaminophen 5-325 mg once a day sent with advanced date of 11/08/23. Continue home exercise program, good posture, adequate hydration, weight loss, muscle relaxants, NSAIDs prn, and topical applications. Lumbar spine imaging to assess degree of degenerative changes, any subluxation, listhesis, compression fractures or pars defects. MRI of the lumbar spine to assess for neural integrity and compression. Patient will return to the clinic to discuss results of the MRI findings when it is done and consider interventional therapy as indicated.? All questions and concerns have been answered and patient agreed with the treatment plan. Follow-up in 4 weeks for pill count/imaging results and sooner as needed. Orders: Orders XR lumbar spine 4V min Today M47.817 - Spondylosis without myelopathy or radiculopathy, lumbosacral region, M51.36 - Other intervertebral disc degeneration, lumbar region, M54.16 - Radiculopathy, lumbar region MR lumbar spine wo con Today M47.817 - Spondylosis without myelopathy or radiculopathy, lumbosacral region, M51.36 - Other intervertebral disc degeneration, lumbar region, M54.16 - Radiculopathy, lumbar region Medications: New methylprednisolone (Medrol (Mickey)) PO PER PKG DIR 21 ea 0RF pain M47.817 - Spondylosis without myelopathy or radiculopathy, lumbosacral region, M51.36 - Other intervertebral disc degeneration, lumbar region, M54.16 - Radiculopathy, lumbar region, M96.1 - Postlaminectomy syndrome, not elsewhere classified Refilled hydrocodone-acetaminophen 5-325 mg Partial Fill upon patient request. 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
[2023-11-05 10:51] VITALS: BP 146/67; PULSE 72; O2SAT 98; BMI 36.9
== END 2023-11-05 11:09 | disposition home or self-care (01) ==
PROVIDERS: PCP Internal Medicine; Visit Provider Nurse Practitioner Family
DX: M51.36 Other intervertebral disc degeneration, lumbar region (principal); M54.16 Radiculopathy, lumbar region; M47.817 Spondylosis without myelopathy or radiculopathy, lumbosacral region; M47.812 Spondylosis without myelopathy or radiculopathy, cervical region; Z79.891 Long term (current) use of opiate analgesic; G89.4 Chronic pain syndrome; M79.7 Fibromyalgia; M62.838 Other muscle spasm
CPT/HCPCS: 99214; G2211

== ENCOUNTER → 2023-11-05 10:39 | Outpatient (BNVA) | payer MEDICARE, SELFPAY | PROVIDERS: PCP Internal Medicine; Visit Provider Nurse Practitioner Family | DX: Z51.81 Encounter for therapeutic drug level monitoring (principal); M51.36 Other intervertebral disc degeneration, lumbar region; M54.16 Radiculopathy, lumbar region; M47.817 Spondylosis without myelopathy or radiculopathy, lumbosacral region; M47.812 Spondylosis without myelopathy or radiculopathy, cervical region; M79.7 Fibromyalgia; M62.838 Other muscle spasm; G89.4 Chronic pain syndrome; Z79.891 Long term (current) use of opiate analgesic | CPT/HCPCS: 99212 ==

== ENCOUNTER 2023-12-03 10:32 | Outpatient (AMB) | payer MEDICARE, SELFPAY ==
--- NOTE | 2023-12-03 10:33 | A.OFFVIS_ITS ---
Vital Signs 12/03/23 10:39 Height 5 ft 2 in Weight 203 lb 2 oz BMI 37.1 BP 137/74 Blood Pressure Location Rt brachial Position Sitting Pulse 63 Pulse Source Pulse Oximeter Pulse Oximetry (%) 99 Oxygen Delivery Method Room Air Intake Visit Reasons: PILL COUNT Intake Note: Vivian comes in today for a pill count to hydrocodone-acetaminophen, patient should have 7 tablets and presents with 7 tablets which she last took last night 12/02/23 at 8pm. 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 Patient is supposed to have #7 pills, in her possession has #7 pills. This demonstrates a responsible attitude in regards to the medication regimen. Patient reports mild-moderate analgesia on her regimen. She had recent exacerbation of low back pain with yardwork and gardening unrelieved with conservative treatments including Meloxicam, Tylenol, and muscle relaxant. She completed lumbar spine MRI and this is noted below. Patient reports significant improvement with Medrol Mickey. She continues to endorse mild discogenic and right sided radicular low back pain with SIJ components. Patient declined any interventional treatments at this time. Denies any fever, chills, shortness of breaths, abdominal pain or groin, constipation, nausea, sedation, dizziness, urinary retention, weakness, bladder or bowel dysfunction, or saddle anesthesia. Past Procedures: 09/13/23: Left Therapeutic GTB injection-100% ongoing pain relief PRIOR: Patient presents today for re-entrance into opioid program. Patient has chronic pain syndrome, fibromyalgia, cervical and lumbar arthritis, shoulder pain. She has received multiple cortisone injections in the past through another Pain clinic with mild and temporary pain relief. Given history of osteoporosis, patient is not a candidate for therapeutic steroidal injections. We reviewed interventional treatments, including neuromodulation with SCS vs PNS trials and RFA procedures that do not require steroidal injections. Patient reports she has been managing her chronic pain with Tylenol, meloxicam and heat/ice therapies. She reports weight gain and decreased physical activity due to daily pain. Denies any recent cough, cold, infection, fever, any significant changes in her medical history, medications or recent hospitalizations.? On evaluation, it was determined that there was a continued need to continue palliative chronic opioid prescribing. Risks and benefits were discussed with the patient. She believes she was more functional and less symptomatic on c hronic opioids. Patient also wants to avoid daily NSAID use. MassPAT was reviewed and is consistent with her history. PHQ-9 SCORE: 8 OPIOID RISK STRATIFICATION SURVEY SCORE: 15 Given this, she is deemed to be a MODERATE RISK for chronic opioid addiction. 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 The patient understands that the medication she is requesting is an opioid, which carries risks of dependence, tolerance, hyperalgesia, addiction, respiratory failure and possibly . She verbalized understanding of this and accepts these risks on her own volition. The patient accepts the responsibility to adhere to the medication use agreement. There is no evidence of misuse, abuse or diversion at this time. She is aware she will be required to attend monthly pill counts and if there are any discrepancies, because of his risk of addiction he will be suspended for ONE YEAR. PRIOR 12/21/22: Patient returns today for a pill count. Patient is supposed to have #12 pills, in her possession has #9.5 pills. Unfortunately, this demonstrates an irresponsible attitude towards her medication regimen. Her prescription is for two pills per day, therefore she is short 1.5 days. Patient has expressed frustration with the guidelines per our opioid contract but unfortunately her pill count was short for over 1 day. Patient reports she has more medication at home in another opioid pill bottle. She was made aware per opioid policy, all medication has to be kept in its original container. Given her risk is low, she will be suspended for 6 months. In meantime, patient is aware that she will not be eligible for medical management through this office but she can receive interventional treatments for her pain generators which we previously discussed and can revisit again. [facility] Medical History Degeneration of lumbar intervertebral disc Obesity (BMI 35.0-39.9 without comorbidity) Chronic headaches Fibromyalgia Arthritis Anxiety Depression Osteoporosis Review of Systems Const All systems reviewed & are unremarkable except as noted in HPI and below Physical Exam Vital Signs: Last Vital Signs Pulse 63 12/03/23 10:39 BP 137/74 12/03/23 10:39 Pulse Ox 99 12/03/23 10:39 Oxygen Delivery Method Room Air 12/03/23 10:39 BMI result Body Mass Index 37.1 General: Appears afebrile. Alert and oriented. Mood and affect appropriate. Follows and participates in conversation appropriately. Respiratory effort is unlabored. No cough. Able to transition from sit to stand unassisted. Ambulates with bilaterally normal heel strike and toe off. Back/Spine/Pelvis Cervical Spine: cervical muscular tenderness, pain with cervical ROM and No Cervical spine tenderness Thoracic/Lumbar Spine: thoracic and lumbar spine normal to inspection, No Thoracic/lumbar spine scar(s), Lasegue's sign positive on the right and diffuse, pain with thoraco-lumbar ROM, paraspinal muscle tenderness, thoraco-lumbar ROM limited, No thoracic spinal tenderness and lumbar spinal tenderness (L4-S1) Pelvis: buttock tenderness bilaterally Sacroiliac joints: bilaterally tender to palpation Psych Appearance: grossly normal Mental Status: mental status grossly normal Speech and movement: Normal speech and movement present Affect: normal affect Attitude: cooperative Thought process: Normal thought process present Thought content: Normal thought content present, suicidality (none), no hallucinations and No Depressive thoughts present Insight: Good insight present (Psych) Judgement: Good judgement present (Psych) Results Reviewed Results Reviewed: MR SPINE LUMBAR without CONTRAST 11/14/23 at [facility] [[email or web address]] INDICATION: Radiculopathy, lumbar region. Patient presents with right-sided lower back pain for years worsening the last two weeks. COMPARISON: None Available. FINDINGS: Normal lumbar alignment is demonstrated. Vertebral heights are well maintained. Bone marrow signal is within normal limits, and no suspicious osseous lesion is identified. Conus medullaris is unremarkable. Paraspinal soft tissues and visualized portions of the abdomen and pelvis are unremarkable. At L1-2 there is a small broad-based and right paracentral disc bulge as well as bilateral facet hypertrophy and thickening of the ligamentum flavum. No central canal or neuroforaminal stenosis is demonstrated. At L2-3 there is a small broad-based disc bulge and bilateral facet hypertrophy with thickening of the ligamentum flavum. No central canal or neuroforaminal stenosis is demonstrated. At L3-4 there is a small broad-based disc bulge and bilateral facet hypertrophy with thickening of the ligamentum flavum. This causes moderate central canal stenosis as well as mild left neuroforaminal narrowing. At L4-5 there is a small broad-based disc bulge and bilateral facet hypertrophy with thickening of the ligamentum flavum. This causes moderate central canal stenosis and mild left neuroforaminal narrowing. At L5-S1 there is no significant disc herniation or protrusion. There is bilateral facet hypertrophy. No central canal or neural foraminal stenosis is demonstrated. IMPRESSION: Multilevel degenerative disc and bony disease causing central canal and neuroforaminal stenosis as described. Assessment & Plan Assessment & Plan (1) Degeneration of lumbar intervertebral disc: Code(s): M51.36 - Other intervertebral disc degeneration, lumbar region Category: Medical (2) Lumbosacral spondylosis: Code(s): M47.817 - Spondylosis without myelopathy or radiculopathy, lumbosacral region Category: Medical (3) Lumbar radiculopathy: Code(s): M54.16 - Radiculopathy, lumbar region Category: Medical (4) Lumbosacral spondylosis: Code(s): M47.817 - Spondylosis without myelopathy or radiculopathy, lumbosacral region Category: Medical (5) Spondylosis of cervical spine: Code(s): M47.812 - Spondylosis without myelopathy or radiculopathy, cervical region Category: Medical (6) Opioid contract exists: Code(s): Z79.891 - long-term (current) use of opiate analgesic Category: Medical (7) Chronic pain syndrome: Code(s): G89.4 - Chronic pain syndrome Category: Medical (8) Fibromyalgia: Code(s): M79.7 - Fibromyalgia Category: Medical Plan Patient has shown accountability for her medication regimen and the pill count was accurate.? There is no evidence of misuse, abuse or diversion at this time. RPO reviewed. Script sent for hydrocodone-acetaminophen 5-325 mg once a day sent with advanced date of 12/07/23. Continue home exercise program, good posture, adequate hydration, weight loss (avoid ultra-processed foods and sugar), muscle relaxants, NSAIDs prn, and topical applications. Lumbar spine MRI results and treatments for spinal stenosis related pain. Nikita t declined interventional treatments at this time as she had significant improvement with Medrol Mickey and muscle relaxant. All questions and concerns have been answered and patient agreed with the sheila atment plan. Follow-up in 4 weeks for pill count/imaging results and sooner as needed. Medications: Refilled hydrocodone-acetaminophen 5-325 mg Partial Fill upon patient request. 1 tab PO DAILY 30 days PRN 30 tabs 0RF pain M47.812 - Spondylosis without myelopathy or radiculopathy, cervical region, M96.1 - Postlaminectomy syndrome, not elsewhere classified, Z79.891 - neurodiagnostic technologist (current) use of opiate analgesic Coding Level of Care Code Est Pt Level 4 (47455) Complex EM visit Add On G2211 Diagnoses Degeneration of lumbar intervertebral disc M51.36 Lumbosacral spondylosis M47.817 Lumbar radiculopathy M54.16 Spondylosis of cervical spine M47.812 Opioid contract exists Z79.891 Chronic pain syndrome G89.4 Fibromyalgia M79.7
[2023-12-03 10:39] VITALS: BP 137/74; PULSE 63; O2SAT 99; BMI 37.1
== END 2023-12-03 10:47 | disposition home or self-care (01) ==
PROVIDERS: PCP Internal Medicine; Visit Provider Nurse Practitioner Family
DX: M51.36 Other intervertebral disc degeneration, lumbar region (principal); M47.817 Spondylosis without myelopathy or radiculopathy, lumbosacral region; M54.16 Radiculopathy, lumbar region; M47.812 Spondylosis without myelopathy or radiculopathy, cervical region; Z79.891 Long term (current) use of opiate analgesic; G89.4 Chronic pain syndrome; M79.7 Fibromyalgia
CPT/HCPCS: 99214; G2211

== ENCOUNTER → 2023-12-03 10:32 | Outpatient (BNVA) | payer MEDICARE, SELFPAY | PROVIDERS: PCP Internal Medicine; Visit Provider Nurse Practitioner Family | DX: M79.7 Fibromyalgia (principal); M51.369 Other intervertebral disc degeneration, lumbar region without mention of lumbar back pain or lower extremity pain; M54.16 Radiculopathy, lumbar region; G89.4 Chronic pain syndrome; M47.812 Spondylosis without myelopathy or radiculopathy, cervical region; M47.817 Spondylosis without myelopathy or radiculopathy, lumbosacral region; Z79.891 Long term (current) use of opiate analgesic; Z51.81 Encounter for therapeutic drug level monitoring | CPT/HCPCS: 99212 ==

== ENCOUNTER → 2023-12-31 10:59 | Outpatient (BNVA) | payer MEDICARE, SELFPAY | PROVIDERS: PCP Internal Medicine; Visit Provider Nurse Practitioner Family ==

== ENCOUNTER 2024-01-27 10:32 | Outpatient (AMB) | payer MEDICARE, SELFPAY ==
--- NOTE | 2024-01-27 10:34 | MHC.OFFVIS ---
Vital Signs 01/27/24 10:42 Height 5 ft 2 in Weight 206 lb 8 oz BMI 37.8 BP 166/71 H Blood Pressure Location Rt brachial Position Sitting Pulse 70 Pulse Source Pulse Oximeter Pulse Oximetry (%) 98 Oxygen Delivery Method Room Air Intake Visit Reasons: Pill Count Intake Note: Vivian comes in today for a pill count to hydrocodone-acetaminophen, patient should have 11 tablets and presents with 11 tablets which she last took last night 01/26/24 at 8pm. 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 Patient is supposed to have #11 pills, in her possession has #11 pills. This demonstrates a responsible attitude in regards to the medication regimen. Patient reports mild to moderate analgesia on her regimen. She continues to endorse low back pain with radiation into her right buttock and right leg, unrelieved with conservative treatments including Meloxicam, Tylenol, and muscle relaxants. She completed lumbar spine MRI and we discussed interventions previously and today.She tried Medrol Mickey in the recent past with significant improvement. She also right sided radicular low back pain with positive SIJ pain on the right. Patient reports good results with previous SIJ injections at another pain clinic and would like to proceed with SIJ therapeutic injection as next steps. Denies any fever, chills, shortness of breaths, abdominal pain or groin, constipation, nausea, sedation, dizziness, urinary retention, weakness, bladder or bowel dysfunction, or saddle anesthesia. Past Procedures: 09/13/23: Left Therapeutic GTB injection-100% ongoing pain relief PRIOR: Patient presents today for re-entrance into opioid program. Patient has chronic pain syndrome, fibromyalgia, cervical and lumbar arthritis, shoulder pain. She has received multiple cortisone injections in the past through another Pain clinic with mild and temporary pain relief. Given history of osteoporosis, patient is not a candidate for therapeutic steroidal injections. We reviewed interventional treatments, including neuromodulation with SCS vs PNS trials and RFA procedures that do not require steroidal injections. Patient reports she has been managing her chronic pain with Tylenol, meloxicam and heat/ice therapies. She reports weight gain and decreased physical activity due to daily pain. Denies any recent cough, cold, infection, fever, any significant changes in her medical history, medications or recent hospitalizations.? On evaluation, it was determined that there was a continued need to continue palliative chronic opioid prescribing. Risks and benefits were discussed with the patient. She believes she was more functional and less symptomatic on chronic opioids. Patient also wants to avoid daily NSAID use. MassPAT was reviewed and is consistent with her history. PHQ-9 SCORE: 8 OPIOID RISK STRATIFICATION SURVEY SCORE: 15 Given this, she is deemed to be a MODERATE RISK for chronic opioid addiction. 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 The patient understands that the medication she is requesting is an opioid, which carries risks of dependence, tolerance, hyperalgesia, addiction, respiratory failure and possibly . She verbalized understanding of this and accepts these risks on her own volition. The patient accepts the responsibility to adhere to the medication use agreement. There is no evidence of misuse, abuse or diversion at this time. She is aware she will be required to attend monthly pill counts and if there are any discrepancies, because of his risk of addiction he will be suspended for ONE YEAR. PRIOR 12/21/22: Patient returns today for a pill count. Patient is supposed to have #12 pills, in her possession has #9.5 pills. Unfortunately, this demonstrates an irresponsible attitude towards her medication regimen. Her prescription is for two pills per day, therefore she is short 1.5 days. Patient has expressed frustration with the guidelines per our opioid contract but unfortunately her pill count was short for over 1 day. Patient reports she has more medication at home in another opioid pill bottle. She was made aware per opioid policy, all medication has to be kept in its original container. Given her risk is low, she will be suspended for 6 months. In meantime, patient is aware that she will not be eligible for medical management through this office but she can receive interventional treatments for her pain generators which we previously discussed and can revisit again. [facility] Medical History Degeneration of lumbar intervertebral disc Obesity (BMI 35.0-39.9 without comorbidity) Chronic headaches Fibromyalgia Arthritis Anxiety Depression Osteoporosis Review of Systems Const All systems reviewed & are unremarkable except as noted in HPI and below Physical Exam General: Appears afebrile. Alert and oriented. Mood and affect appropriate. Follows and participates in conversation appropriately. Respiratory effort is unlabored. No cough. Able to transition from sit to stand unassisted. Ambulates with bilaterally normal heel strike and toe off. General: Yes no CVA tenderness Back/Spine/Pelvis Other: Limited lumbar ROM due to pain. TTP over paraspinals from L4-S1. Repetitive lumbar flexion and axial rotation reproduces moderate pain. Strength 5/5 hip flexion bilaterally. DTR intact and symmetric, no clonus. ARUNA test reproduces lateral hip and lower back pain, bilateral. +Moderate TTP in projection of SIJ areas. Seated SLR testing with dorsiflexion positive on the right. +Mendez?s, Stinchfield, Pelvic Compression and Gaenslen?s test positive bilaterally, right>left. Back: no CVA tenderness Cervical Spine: cervical muscular tenderness, pain with cervical ROM and No Cervical spine tenderness Thoracic/Lumbar Spine: thoracic and lumbar spine normal to inspection, No Thoracic/lumbar spine scar(s), Lasegue's sign positive on the right and diffuse, pain with thoraco-lumbar ROM, paraspinal muscle tenderness, thoraco-lumbar ROM limited, No thoracic spinal tenderness and lumbar spinal tenderness (L4-S1) Pelvis: buttock tenderness bilaterally Sacroiliac joints: bilaterally tender to palpation Extrem General: Yes capillary refill normal, Yes no clubbing, cyanosis or edema and Yes no calf tenderness Psych Appearance: grossly normal Mental Status: mental status grossly normal Speech and movement: Normal speech and movement present Affect: normal affect Attitude: cooperative Thought process: Normal thought process present Thought content: Normal thought content present, suicidality (none), no hallucinations and No Depressive thoughts present Insight: Good insight present (Psych) Judgement: Good judgement present (Psych) Results Reviewed Results Reviewed: MR SPINE LUMBAR without CONTRAST 11/14/23 at [facility] INDICATION: Radiculopathy, lumbar region. Patient presents with right-sided lower back pain for years worsening the last two weeks. COMPARISON: None Available. FINDINGS: Normal lumbar alignment is demonstrated. Vertebral heights are well maintained. Bone marrow signal is within normal limits, and no suspicious osseous lesion is identified. Conus medullaris is unremarkable. Paraspinal soft tissues and visualized portions of the abdomen and pelvis are unremarkable. At L1-2 there is a small broad-based and right paracentral disc bulge as well as bilateral facet hypertrophy and thickening of the ligamentum flavum. No central canal or neuroforaminal stenosis is demonstrated. At L2-3 there is a small broad-based disc bulge and bilateral facet hypertrophy with thickening of the ligamentum flavum. No central canal or neuroforaminal stenosis is demonstrated. At L3-4 there is a small broad-based disc bulge and bilateral facet hypertrophy with thickening of the ligamentum flavum. This causes moderate central canal stenosis as well as mild left neuroforaminal narrowing. At L4-5 there is a small broad-based disc bulge and bilateral facet hypertrophy with thickening of the ligamentum flavum. This causes moderate central canal stenosis and mild left neuroforaminal narrowing. At L5-S1 there is no significant disc herniation or protrusion. There is bilateral facet hypertrophy. No central canal or neural foraminal stenosis is demonstrated. IMPRESSION: Multilevel degenerative disc and bony disease causing central canal and neuroforaminal stenosis as described. Assessment & Plan Assessment & Plan (1) Lumbosacral spondylosis: Code(s): M47.817 - Spondylosis without myelopathy or radiculopathy, lumbosacral region Category: Medical (2) Lumbar radiculopathy: Code(s): M54.16 - Radiculopathy, lumbar region Category: Medical (3) Lumbosacral spondylosis: Code(s): M47.817 - Spondylosis without myelopathy or radiculopathy, lumbosacral region Category: Medical (4) Spondylosis of cervical spine: Code(s): M47.812 - Spondylosis without myelopathy or radiculopathy, cervical region Category: Medical (5) Opioid contract exists: Code(s): Z79.891 - long term care social worker (current) use of opiate analgesic Category: Medical (6) Chronic pain syndrome: Code(s): G89.4 - Chronic pain syndrome Category: Medical (7) Fibromyalgia: Code(s): M79.7 - Fibromyalgia Category: Medical (8) Chronic sacroiliac joint pain: Code(s): M53.3 - Sacrococcygeal disorders, not elsewhere classified; G89.29 - Other chronic pain Category: Medical Plan Patient has shown accountability for her medication regimen and the pill count was accurate.? There is no evidence of misuse, abuse or diversion at this time. MassPat reviewed. Script sent for hydrocodone-acetaminophen 5-325 mg once a day sent with advanced date of 02/05/24. Reviewed again Lumbar spine MRI results and treatments for spinal stenosis related pain and SIJ pain. Patient would like to proceed with Right Therapeutic SIJ injection with local and fluoroscopy as next steps. Reports history of SIJ injections in another pain clinic in the past with good results. Expectations, risks and benefits were reviewed. Patient is aware she will be contacted to schedule this procedure. All questions were answered and the patient is in agreement of plan. Follow-up pill count/after injections and sooner as needed. Medications: Refilled hydrocodone-acetaminophen 5-325 mg Partial Fill upon patient request. 1 tab PO DAILY 30 days PRN 30 tabs 0RF pain M47.812 - Spondylosis without myelopathy or radiculopathy, cervical region, M96.1 - Postlaminectomy syndrome, not elsewhere classified, Z79.891 - long term care social worker (current) use of opiate analgesic Coding Level of Care Code Est Pt Level 4 (19402) Complex EM visit Add On G2211 Diagnoses Lumbosacral spondylosis M47.817 Lumbar radiculopathy M54.16 Spondylosis of cervical spine M47.812 Opioid contract exists Z79.891 Chronic pain syndrome G89.4 Fibromyalgia M79.7 Chronic sacroiliac joint pain M53.3; G89.29
[2024-01-27 10:42] VITALS: BP 166/71; PULSE 70; O2SAT 98; BMI 37.8
== END 2024-01-27 10:55 | disposition home or self-care (01) ==
PROVIDERS: PCP Internal Medicine; Visit Provider Nurse Practitioner Family
DX: M47.817 Spondylosis without myelopathy or radiculopathy, lumbosacral region (principal); M54.16 Radiculopathy, lumbar region; M47.812 Spondylosis without myelopathy or radiculopathy, cervical region; Z79.891 Long term (current) use of opiate analgesic; G89.4 Chronic pain syndrome; M79.7 Fibromyalgia; M53.3 Sacrococcygeal disorders, not elsewhere classified; G89.29 Other chronic pain
CPT/HCPCS: 99214; G2211

== ENCOUNTER → 2024-01-27 10:32 | Outpatient (BNVA) | payer MEDICARE, SELFPAY | PROVIDERS: PCP Internal Medicine; Visit Provider Nurse Practitioner Family | DX: M47.817 Spondylosis without myelopathy or radiculopathy, lumbosacral region (principal); M47.812 Spondylosis without myelopathy or radiculopathy, cervical region; M54.16 Radiculopathy, lumbar region; G89.4 Chronic pain syndrome; M79.7 Fibromyalgia; M53.3 Sacrococcygeal disorders, not elsewhere classified; M96.1 Postlaminectomy syndrome, not elsewhere classified; Z51.81 Encounter for therapeutic drug level monitoring; Z79.891 Long term (current) use of opiate analgesic | CPT/HCPCS: 99212 ==

== ENCOUNTER 2024-02-27 06:39 | Outpatient (REF) | payer MEDICARE, SELFPAY ==
--- NOTE | ~2024-02-27 | FL_ITS ---
EXAMINATION: FLUORO GUIDANCE IN TREATMENT ROOM CLINICAL INFORMATION: Sacrococcygeal disorders, not elsewhere classified. COMPARISON: None available. TECHNIQUE: Fluoroscopy supervised by: Dr. Rodolfo Tenorio. Fluoroscopy time: 0.1 minute. Cumulative Dose: 5088 mGy. DAP: 0.0308 mGy-m2 (milligray-meter squared). Images: 2. FINDINGS: A needle is present overlying the right SI joint FL/FL guidance in treatment room IMPRESSION: Fluoroscopy during procedure. Please see procedure report for additional information. Electronically signed by: Jean Chase MD 04/02/2024 08:04 AM [facility]
== END 2024-02-27 06:40 | disposition home or self-care (01) ==
LOC: CF 06:39
PROVIDERS: Visit Provider Internal Medicine
DX: M53.3 Sacrococcygeal disorders, not elsewhere classified (principal); G89.29 Other chronic pain
CPT/HCPCS: 27096; J2003; J2795; J3301

== ENCOUNTER 2024-02-27 11:02 | Outpatient (AMB) | payer MEDICARE, SELFPAY ==
[2024-02-27 11:16] VITALS: BP 138/70; PULSE 72; O2SAT 97
--- NOTE | 2024-02-27 11:16 | A.OFFVIS_ITS ---
Vital Signs 02/27/24 11:16 02/27/24 11:32 BP 138/70 134/62 Blood Pressure Location Lt brachial Lt brachial Position Sitting Sitting Pulse 72 76 Pulse Source Pulse Oximeter Pulse Oximeter Pulse Oximetry (%) 97 98 Oxygen Delivery Method Room Air Room Air Intake Visit Reasons: Right theraputic SIJ inj Allergies latex Allergy (Mild, Verified 01/27/24 10:42) burning Penicillins Allergy (Mild, Verified 01/27/24 10:42) Rash Sulfa (Sulfonamide Antibiotics) Allergy (Mild, Verified 01/27/24 10:42) Rash HPI HPI Right theraputic SIJ inj: Details: Patient presents for scheduled procedure. Denies any recent cough, cold, infection, fever or other significant changes in medical history since last office visit. [facility] Medical History Degeneration of lumbar intervertebral disc Obesity (BMI 35.0-39.9 without comorbidity) Chronic headaches Fibromyalgia Arthritis Anxiety Depression Osteoporosis Physical Exam Vital Signs: Last Vital Signs Pulse 72 02/27/24 11:16 BP 138/70 02/27/24 11:16 Pulse Ox 97 02/27/24 11:16 Oxygen Delivery Method Room Air 02/27/24 11:16 Office Procedures AMB Joint Injection/Aspiration Joint Injection/Aspiration Details: Therapeutic Sacroiliac Joint Injection, Right The procedure, its benefits, and its risks were explained and written informed consent was obtained from the patient. Immediately prior to starting the procedure, a time-out safety check was conducted. The patient's identification, procedure name, procedure site, and procedure laterality were confirmed with the patient. ? Patient was placed prone on the fluoroscopy table and the lumbosacral area was prepped using ChloraPrep and draped with sterile drapein standard fashion. The C-arm was rotated in a contralateral oblique fashion until the medial border of the iliac crest no longer foreshadowed the posterior sacroiliac joint line. The skin and subcutaneous tissue was anesthetized using 1 mL of 0.75% plain lidocaine with 1.5-inch 25-gauge needle in the middle region of the joint line.? A 3.5-inch 22-gauge spinal needle with small bend on the tip was slowly advanced towards the joint line, coaxial to the x-ray beam. Once bony content was obtained, the needle was easily slid into the intra-articular space.? Intra- articular needle position was confirmed using lateral fluoroscopy.? A total volume of 2.5mL of solution containing 40 mg Kenalog and rest 0.5% of ropivacaine was injected intra-articularly. The stylet was reinserted and needle was removed. The patient tolerated the procedure well. Patient denied any lower extremity weakness or numbness. Patient was observed for 30 min and was discharged after fulfilling the standard discharge criteria. Coding 74845 - Sacroiliac Procedure code (CPT) selection complete Assessment & Plan Assessment & Plan (1) Chronic sacroiliac joint pain: Code(s): M53.3 - Sacrococcygeal disorders, not elsewhere classified; G89.29 - Other chronic pain Category: Medical Plan Patient is status post therapeutic right SI joint injection. Patient tolerated procedure well and was discharged home in stable condition with discharge instructions. All questions were answered. We will follow-up via telephone or in clinic to assess response to therapy. A follow-up appointment was made during today's visit. Orders: Orders FL guidance in treatment room Today G89.29 - Other chronic pain, M53.3 - Sacrococcygeal disorders, not elsewhere classified Coding Level of Care Code Procedure Only Diagnoses Chronic sacroiliac joint pain M53.3; G89.29 CPT Codes Coding - Joint 9: 27996 - Sacroiliac ([id number])
[2024-02-27 11:32] VITALS: BP 134/62; PULSE 76; O2SAT 98
== END 2024-02-27 11:32 | disposition home or self-care (01) ==
PROVIDERS: PCP Internal Medicine; Visit Provider Internal Medicine
DX: M53.3 Sacrococcygeal disorders, not elsewhere classified (principal); G89.29 Other chronic pain
CPT/HCPCS: 27096

== ENCOUNTER 2024-03-30 11:05 | Outpatient (AMB) | payer MEDICARE, SELFPAY ==
--- NOTE | 2024-03-30 11:08 | MHC.OFFVIS ---
Vital Signs 03/30/24 11:18 Height 5 ft 2 in Weight 206 lb 6 oz BMI 37.7 BP 144/73 H Blood Pressure Location Rt brachial Position Sitting Pulse 72 Pulse Source Pulse Oximeter Intake Visit Reasons: s/p Right theraputic SIJ inj/Pill Count random UDS Intake Note: Vivian comes in today for a pill count to hydrocodone-acetaminophen, patient should have 10 tablets and presents with 10 tablets which she last took yesterday 03/29/24 at 3pm. Pain today 05/11 Patient resigned opioid contract in office, signed copy of contract was provided to patient. Patient will also go for a random UDS, aware that she will need to go to the lab on the first floor of this building today 03/30/24 before 12pm. 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 Patient is supposed to have #10 pills, in her possession has #10 pills. This demonstrates a responsible attitude in regards to the medication regimen. Patient reports mild to moderate analgesia on her regimen. Denies any fever, chills, shortness of breaths, abdominal pain or groin, constipation, nausea, sedation, dizziness, urinary retention, weakness, bladder or bowel dysfunction, or saddle anesthesia. Patient reports 95% ongoing pain relief since therapeutic right SI joint injection on 02/27/[address] Tenorio with improvement in her ADLs and mobility. She reports flare up in her neck pain with headache and bilateral shoulder pain. Past Procedures: 02/27/24: Right therapeutic SI joint injection-95% ongoing pain relief 09/13/23: Left Therapeutic GTB injection-100% ongoing pain relief [facility] Medical History Degeneration of lumbar intervertebral disc Obesity (BMI 35.0-39.9 without comorbidity) Chronic headaches Fibromyalgia Arthritis Anxiety Depression Osteoporosis Review of Systems Const All systems reviewed & are unremarkable except as noted in HPI and below Physical Exam General: Appears afebrile. Alert and oriented. Mood and affect appropriate. Follows and participates in conversation appropriately. Respiratory effort is unlabored. No cough. Able to transition from sit to stand unassisted. Ambulates with bilaterally normal heel strike and toe off. Neck Neck: Yes normal visual inspection, Yes no lymphadenopathy, Yes supple, No anterior neck swelling, Yes no JVD and Yes prominent dorsocervical fat pad Back/Spine/Pelvis Cervical Spine: loss of normal cervical lordosis, cervical muscular tenderness, pain with cervical ROM and No Cervical spine tenderness Psych Appearance: grossly normal Mental Status: mental status grossly normal Speech and movement: Normal speech and movement present Affect: normal affect Attitude: cooperative Thought process: Normal thought process present Thought content: Normal thought content present, suicidality (none), no hallucinations and No Depressive thoughts present Insight: Good insight present (Psych) Judgement: Good judgement present (Psych) Results Reviewed Results Reviewed: MR SPINE LUMBAR without CONTRAST 11/14/23 at [facility] INDICATION: Radiculopathy, lumbar region. Patient presents with right-sided lower back pain for years worsening the last two weeks. COMPARISON: None Available. FINDINGS: Normal lumbar alignment is demonstrated. Vertebral heights are well maintained. Bone marrow signal is within normal limits, and no suspicious osseous lesion is identified. Conus medullaris is unremarkable. Paraspinal soft tissues and visualized portions of the abdomen and pelvis are unremarkable. At L1-2 there is a small broad-based and right paracentral disc bulge as well as bilateral facet hypertrophy and thickening of the ligamentum flavum. No central canal or neuroforaminal stenosis is demonstrated. At L2-3 there is a small broad-based disc bulge and bilateral facet hypertrophy with thickening of the ligamentum flavum. No central canal or neuroforaminal stenosis is demonstrated. At L3-4 there is a small broad-based disc bulge and bilateral facet hypertrophy with thickening of the ligamentum flavum. This causes moderate central canal stenosis as well as mild left neuroforaminal narrowing. At L4-5 there is a small broad-based disc bulge and bilateral facet hypertrophy with thickening of the ligamentum flavum. This causes moderate central canal stenosis and mild left neuroforaminal narrowing. At L5-S1 there is no significant disc herniation or protrusion. There is bilateral facet hypertrophy. No central canal or neural foraminal stenosis is demonstrated. IMPRESSION: Multilevel degenerative disc and bony disease causing central canal and neuroforaminal stenosis as described. XR CERVICAL SPINE XR RIGHT SHOULDER 07/26/23 CLINICAL INFORMATION: Spondylolysis without myelopathy or radiculopathy, no injury, chest pain, right shoulder and neck. FINDINGS: CERVICAL SPINE: Bones are diffusely demineralized. Straightening of the normal cervical lordosis. Mild anterolisthesis of C3 on C4. Advanced degenerative changes with loss of disc space height and hypertrophic change at C3-C4, C4-C5 and C5-C6. C7 poorly visualized due to overlying soft tissue structures. Bilateral facet hypertrophy with neural foraminal encroachment at C3-C7 levels. RIGHT SHOULDER: [id number] degenerative changes in the acromioclavicular joint with joint space narrowing and hypertrophic change. Faint calcifications adjacent to the humeral head. Mild hypertrophic change along the inferior aspect of the glenohumeral joint. Dextroscoliosis of the imaged upper thoracic spine with multilevel degenerative changes. IMPRESSION: 1. Advanced degenerative disc disease at C3-C4, C4-C5 and C5-C6. 2. Moderate degenerative changes in the right shoulder. 3. Dextroscoliosis of the imaged upper thoracic spine with multilevel degenerative changes. Assessment & Plan Assessment & Plan (1) Lumbosacral spondylosis: Code(s): M47.817 - Spondylosis without myelopathy or radiculopathy, lumbosacral region Category: Medical (2) Lumbosacral spondylosis: Code(s): M47.817 - Spondylosis without myelopathy or radiculopathy, lumbosacral region Category: Medical (3) Spondylosis of cervical spine: Code(s): M47.812 - Spondylosis without myelopathy or radiculopathy, cervical region Category: Medical (4) Opioid contract exists: Code(s): Z79.891 - snf (current) use of opiate analgesic Category: Medical (5) Chronic pain syndrome: Code(s): G89.4 - Chronic pain syndrome Category: Medical (6) Fibromyalgia: Code(s): M79.7 - Fibromyalgia Category: Medical (7) Chronic sacroiliac joint pain: Code(s): M53.3 - Sacrococcygeal disorders, not elsewhere classified; G89.29 - Other chronic pain Category: Medical Plan Patient has shown accountability for her medication regimen and the pill count was accurate.? There is no evidence of misuse, abuse or diversion at this time. [facility] Will obtain [facility]DS today. Script sent for hydrocodone-acetaminophen 5-325 mg once a day sent with advanced date of 04/04/24. Patient has Narcan at home. Patient reports good pain relief with recent therapeutic right SIJ injection last month. We also reviewed interventional treatments for shoulder and neck pain. Patient will notify our office if she is interested. All questions were answered and the patient is in agreement of plan. Follow-up pill count/UDS review and sooner as needed. Medications: Changed From hydrocodone-acetaminophen 5-325 mg Partial Fill upon patient request. 1 tab PO DAILY 23 days PRN 23 tabs 0RF pain M47.812 - Spondylosis without myelopathy or radiculopathy, cervical region, M96.1 - Postlaminectomy syndrome, not elsewhere classified, Z79.891 - snf (current) use of opiate analgesic To hydrocodone-acetaminophen 5-325 mg Partial Fill upon patient request. 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
[2024-03-30 11:18] VITALS: BP 144/73; PULSE 72; BMI 37.7
== END 2024-03-30 11:27 | disposition home or self-care (01) ==
PROVIDERS: PCP Internal Medicine; Visit Provider Nurse Practitioner Family
DX: M47.817 Spondylosis without myelopathy or radiculopathy, lumbosacral region (principal); M47.812 Spondylosis without myelopathy or radiculopathy, cervical region; Z79.891 Long term (current) use of opiate analgesic; G89.4 Chronic pain syndrome; M79.7 Fibromyalgia; M53.3 Sacrococcygeal disorders, not elsewhere classified; G89.29 Other chronic pain
CPT/HCPCS: 99214; G2211

== ENCOUNTER → 2024-03-30 11:05 | Outpatient (BNVA) | payer MEDICARE, SELFPAY | PROVIDERS: PCP Internal Medicine; Visit Provider Nurse Practitioner Family | DX: M47.817 Spondylosis without myelopathy or radiculopathy, lumbosacral region (principal); M47.812 Spondylosis without myelopathy or radiculopathy, cervical region; G89.4 Chronic pain syndrome; M79.7 Fibromyalgia; M53.3 Sacrococcygeal disorders, not elsewhere classified; Z51.81 Encounter for therapeutic drug level monitoring; Z79.891 Long term (current) use of opiate analgesic | CPT/HCPCS: 99212 ==

== ENCOUNTER 2024-04-30 11:04 | Outpatient (AMB) | payer MEDICARE, SELFPAY ==
--- NOTE | 2024-04-30 11:14 | A.OFFVIS_ITS ---
Vital Signs 04/30/24 11:22 Height 5 ft 2 in Weight 208 lb 2 oz BMI 38.1 BP 158/75 H Blood Pressure Location Rt brachial Position Sitting Pulse 70 Pulse Source Pulse Oximeter Pulse Oximetry (%) 98 Oxygen Delivery Method Room Air Intake Visit Reasons: Pill Count Intake Note: Vivian comes in today for a pill count to hydrocodone-acetaminophen, patient should have 8 tablets and presents with 8 tablets which she last took last night 04/29/24 at 8pm. 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 Accompanied by: Self / Same As Patient Allergies latex Allergy (Mild, Verified 04/30/24 11:22) burning Penicillins Allergy (Mild, Verified 04/30/24 11:22) Rash Sulfa (Sulfonamide Antibiotics) Allergy (Mild, Verified 04/30/24 11:22) Rash Medication List - Last Reconciled 04/30/24 by JAYANT Judge diclofenac sodium 1% (Arthritis Pain (diclofenac)) 4 grams topical QID fluoxetine 60 mg PO QAM hydrocodone-acetaminophen 5-325 mg 1 tab PO DAILY PRN 30 days meloxicam TAKE 1 TABLET BY MOUTH DAILY NEEDED FOR SEVERE PAIN methocarbamol 750 mg PO Q8H 5 days naloxone 4 mg/actuation (Narcan) 4 mg intranasal Q2M PRN topiramate 50 mg PO BID 90 days HPI Comments Details: Patient returns today for a pill count. Patient is supposed to have #8 pills, in her possession has #8 pills. This demonstrates a responsible attitude in regards to the medication regimen. Patient reports adequate analgesia on her regimen. Denies any fever, chills, shortness of breaths, abdominal pain or groin, constipation, nausea, sedation, dizziness, urinary retention, weakness, bladder or bowel dysfunction, or saddle anesthesia. Patient reports increased left shoulder pain with overhead reaching activities, movements and lifting and bilateral knee pain, worse left knee anterior and medial aspects. Denies any recent injury, trauma or falls. Denies any changes to medications, medical history or recent hospitalizations. Past Procedures: 02/27/24: Right therapeutic SI joint injection-95% ongoing pain relief 09/13/23: Left Therapeutic GTB injection-100% ongoing pain relief [facility] Medical History Degeneration of lumbar intervertebral disc Obesity (BMI 35.0-39.9 without comorbidity) Chronic headaches Fibromyalgia Arthritis Anxiety Depression Osteoporosis Review of Systems Const All systems reviewed & are unremarkable except as noted in HPI and below Physical Exam Vital Signs: Last Vital Signs Pulse 70 04/30/24 11:22 BP 158/75 H 04/30/24 11:22 Pulse Ox 98 04/30/24 11:22 Oxygen Delivery Method Room Air 04/30/24 11:22 BMI result Body Mass Index 38.1 General: Appears afebrile. Alert and oriented. Mood and affect appropriate. Follows and participates in conversation appropriately. Respiratory effort is unlabored. No cough. Able to transition from sit to stand unassisted. Ambulates with bilaterally normal heel strike and toe off. Neck Neck: Yes normal visual inspection, Yes no lymphadenopathy, Yes supple, No anterior neck swelling, Yes no JVD and Yes prominent dorsocervical fat pad Back/Spine/Pelvis Cervical Spine: loss of normal cervical lordosis, cervical muscular tenderness, pain with cervical ROM and No Cervical spine tenderness Extrem Left upper extremity: shoulder/upper arm (Limited ROM due to pain) Details: inspection abnormal, tenderness Location: of the A-C joint and over the subacromial bursa and crepitus; no ecchymosis and no unsual warmth Left lower extremity: knee Details: normal to inspection and tenderness Location: of the medial joint line and of the proximal tibia Details: medially and along the midline Psych Appearance: grossly normal Mental Status: mental status grossly normal Speech and movement: Normal speech and movement present Affect: normal affect Attitude: cooperative Thought process: Normal thought process present Thought content: Normal thought content present, suicidality (none), no hallucinations and No Depressive thoughts present Insight: Good insight present (Psych) Judgement: Good judgement present (Psych) Results Reviewed Results Reviewed: MR SPINE LUMBAR without CONTRAST 11/14/23 at [facility] INDICATION: Radiculopathy, lumbar region. Patient presents with right-sided lower back pain for years worsening the last two weeks. COMPARISON: None Available. FINDINGS: Normal lumbar alignment is demonstrated. Vertebral heights are well maintained. Bone marrow signal is within normal limits, and no suspicious osseous lesion is identified. Conus medullaris is unremarkable. Paraspinal soft tissues and visualized portions of the abdomen and pelvis are unremarkable. At L1-2 there is a small broad-based and right paracentral disc bulge as well as bilateral facet hypertrophy and thickening of the ligamentum flavum. No central canal or neuroforaminal stenosis is demonstrated. At L2-3 there is a small broad-based disc bulge and bilateral facet hypertrophy with thickening of the ligamentum flavum. No central canal or neuroforaminal stenosis is demonstrated. At L3-4 there is a small broad-based disc bulge and bilateral facet hypertrophy with thickening of the ligamentum flavum. This causes moderate central canal stenosis as well as mild left neuroforaminal narrowing. At L4-5 there is a small broad-based disc bulge and bilateral facet hypertrophy with thickening of the ligamentum flavum. This causes moderate central canal stenosis and mild left neuroforaminal narrowing. At L5-S1 there is no significant disc herniation or protrusion. There is bilateral facet hypertrophy. No central canal or neural foraminal stenosis is demonstrated. IMPRESSION: Multilevel degenerative disc and bony disease causing central canal and neuroforaminal stenosis as described. XR CERVICAL SPINE XR RIGHT SHOULDER 07/26/23 CLINICAL INFORMATION: Spondylolysis without myelopathy or radiculopathy, no injury, chest pain, right shoulder and neck. FINDINGS: CERVICAL SPINE: Bones are diffusely demineralized. Straightening of the normal cervical lordosis. Mild anterolisthesis of C3 on C4. Advanced degenerative changes with loss of disc space height and hypertrophic change at C3-C4, C4-C5 and C5-C6. C7 poorly visualized due to overlying soft tissue structures. Bilateral facet hypertrophy with neural foraminal encroachment at C3-C7 levels. RIGHT SHOULDER: [id number] degenerative changes in the acromioclavicular joint with joint space narrowing and hypertrophic change. Faint calcifications adjacent to the humeral head. Mild hypertrophic change along the inferior aspect of the glenohumeral joint. Dextroscoliosis of the imaged upper thoracic spine with multilevel degenerative changes. IMPRESSION: 1. Advanced degenerative disc disease at C3-C4, C4-C5 and C5-C6. 2. Moderate degenerative changes in the right shoulder. 3. Dextroscoliosis of the imaged upper thoracic spine with multilevel degenerative changes. Assessment & Plan Assessment & Plan (1) Arthritis of left shoulder: Code(s): M19.012 - Primary osteoarthritis, left shoulder Category: Medical (2) Left shoulder pain: Code(s): M25.512 - Pain in left shoulder Category: Medical (3) Lumbosacral spondylosis: Code(s): M47.817 - Spondylosis without myelopathy or radiculopathy, lumbosacral region Category: Medical (4) Spondylosis of cervical spine: Code(s): M47.812 - Spondylosis without myelopathy or radiculopathy, cervical region Category: Medical (5) Opioid contract exists: Code(s): Z79.891 - correction (current) use of opiate analgesic Category: Medical (6) Chronic pain syndrome: Code(s): G89.4 - Chronic pain syndrome Category: Medical (7) Fibromyalgia: Code(s): M79.7 - Fibromyalgia Category: Medical Plan Patient has shown accountability for her medication regimen and the pill count was accurate.? There is no evidence of misuse, abuse or diversion at this time. [employer] reviewed. Recent UDS was concordant. Script sent for hydrocodone-acetaminophen 5-325 mg once a day sent with advanced date of 05/05/24. Patient has Narcan at home. Refill sent for topiramate. Left shoulder xray to assess degree of arthritis. Discussed interventional treatments for bilateral knee and left shoulder pain. All questions were answered and the patient is in agreement of plan. Follow-up pill count and sooner as needed. Orders: Orders XR shoulder LT min 2V Today M19.012 - Primary osteoarthritis, left shoulder, M25.512 - Pain in left shoulder Medications: Refilled hydrocodone-acetaminophen 5-325 mg Partial Fill upon patient request. 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
[2024-04-30 11:22] VITALS: BP 158/75; PULSE 70; O2SAT 98; BMI 38.1
== END 2024-04-30 11:46 | disposition home or self-care (01) ==
PROVIDERS: PCP Internal Medicine; Visit Provider Nurse Practitioner Family
DX: M19.012 Primary osteoarthritis, left shoulder (principal); M25.512 Pain in left shoulder; M47.817 Spondylosis without myelopathy or radiculopathy, lumbosacral region; Z79.891 Long term (current) use of opiate analgesic; M47.812 Spondylosis without myelopathy or radiculopathy, cervical region; G89.4 Chronic pain syndrome; M79.7 Fibromyalgia
CPT/HCPCS: 99214; G2211

== ENCOUNTER → 2024-04-30 11:04 | Outpatient (BNVA) | payer MEDICARE, SELFPAY | PROVIDERS: PCP Internal Medicine; Visit Provider Nurse Practitioner Family | DX: Z51.81 Encounter for therapeutic drug level monitoring (principal); M19.012 Primary osteoarthritis, left shoulder; M25.512 Pain in left shoulder; M47.817 Spondylosis without myelopathy or radiculopathy, lumbosacral region; M47.812 Spondylosis without myelopathy or radiculopathy, cervical region; M79.7 Fibromyalgia; G89.4 Chronic pain syndrome; Z79.891 Long term (current) use of opiate analgesic | CPT/HCPCS: 99212 ==

== ENCOUNTER 2024-06-25 11:29 | Outpatient (AMB) | payer MEDICARE, SELFPAY ==
--- NOTE | 2024-06-25 11:32 | MHC.OFFVIS ---
Vital Signs 06/25/24 11:40 Height 5 ft 2 in Weight 201 lb BMI 36.8 BP 183/85 H Blood Pressure Location Rt brachial Position Sitting Pulse 70 Pulse Source Pulse Oximeter Pulse Oximetry (%) 97 Oxygen Delivery Method Room Air Intake Visit Reasons: Pill Count Intake Note: Vivian comes in today for a pill count to hydrocodone-acetaminophen, patient should have 13 tablets and presents with 13 tablets which she last took yesterday 06/24/24 at 12pm. 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 Patient is supposed to have #13 pills, in her possession has #13 pills. This demonstrates a responsible attitude in regards to the medication regimen. Patient reports adequate analgesia on her regimen. Denies any fever, chills, shortness of breaths, abdominal pain or groin, constipation, nausea, sedation, dizziness, urinary retention, weakness, bladder or bowel dysfunction, or saddle anesthesia. Patient continued to endorse left shoulder pain with overhead reaching activities, movements and lifting and bilateral knee pain. Since last visit, patient reports her left knee pain has improved with warm weather. Denies any recent injury, trauma or falls. Denies any changes to medications, medical history or recent hospitalizations, except recent UTI for which she started Macrobid. Past Procedures: 02/27/24: Right therapeutic SI joint injection-95% ongoing pain relief 09/13/23: Left Therapeutic GTB injection-100% ongoing pain relief [facility] Medical History Degeneration of lumbar intervertebral disc Obesity (BMI 35.0-39.9 without comorbidity) Chronic headaches Fibromyalgia Arthritis Anxiety Depression Osteoporosis Review of Systems Const All systems reviewed & are unremarkable except as noted in HPI and below Physical Exam General: Appears afebrile. Alert and oriented. Mood and affect appropriate. Follows and participates in conversation appropriately. Respiratory effort is unlabored. No cough. Able to transition from sit to stand unassisted. Ambulates with bilaterally normal heel strike and toe off. Back/Spine/Pelvis Cervical Spine: loss of normal cervical lordosis, cervical muscular tenderness, pain with cervical ROM and No Cervical spine tenderness Extrem Left upper extremity: shoulder/upper arm (Limited ROM due to pain) Details: inspection abnormal, tenderness Location: of the A-C joint and over the subacromial bursa and crepitus; no ecchymosis and no unsual warmth Left lower extremity: knee Details: normal to inspection and tenderness Location: of the medial joint line and of the proximal tibia Details: medially and along the midline Psych Appearance: grossly normal Mental Status: mental status grossly normal Speech and movement: Normal speech and movement present Affect: normal affect Attitude: cooperative Thought process: Normal thought process present Thought content: Normal thought content present, suicidality (none), no hallucinations and No Depressive thoughts present Insight: Good insight present (Psych) Judgement: Good judgement present (Psych) Results Reviewed Results Reviewed: MR SPINE LUMBAR without CONTRAST 11/14/23 at [facility] INDICATION: Radiculopathy, lumbar region. Patient presents with right-sided lower back pain for years worsening the last two weeks. COMPARISON: None Available. FINDINGS: Normal lumbar alignment is demonstrated. Vertebral heights are well maintained. Bone marrow signal is within normal limits, and no suspicious osseous lesion is identified. Conus medullaris is unremarkable. Paraspinal soft tissues and visualized portions of the abdomen and pelvis are unremarkable. At L1-2 there is a small broad-based and right paracentral disc bulge as well as bilateral facet hypertrophy and thickening of the ligamentum flavum. No central canal or neuroforaminal stenosis is demonstrated. At L2-3 there is a small broad-based disc bulge and bilateral facet hypertrophy with thickening of the ligamentum flavum. No central canal or neuroforaminal stenosis is demonstrated. At L3-4 there is a small broad-based disc bulge and bilateral facet hypertrophy with thickening of the ligamentum flavum. This causes moderate central canal stenosis as well as mild left neuroforaminal narrowing. At L4-5 there is a small broad-based disc bulge and bilateral facet hypertrophy with thickening of the ligamentum flavum. This causes moderate central canal stenosis and mild left neuroforaminal narrowing. At L5-S1 there is no significant disc herniation or protrusion. There is bilateral facet hypertrophy. No central canal or neural foraminal stenosis is demonstrated. IMPRESSION: Multilevel degenerative disc and bony disease causing central canal and neuroforaminal stenosis as described. XR CERVICAL SPINE XR RIGHT SHOULDER 07/26/23 CLINICAL INFORMATION: Spondylolysis without myelopathy or radiculopathy, no injury, chest pain, right shoulder and neck. FINDINGS: CERVICAL SPINE: Bones are diffusely demineralized. Straightening of the normal cervical lordosis. Mild anterolisthesis of C3 on C4. Advanced degenerative changes with loss of disc space height and hypertrophic change at C3-C4, C4-C5 and C5-C6. C7 poorly visualized due to overlying soft tissue structures. Bilateral facet hypertrophy with neural foraminal encroachment at C3-C7 levels. RIGHT SHOULDER: [id number] degenerative changes in the acromioclavicular joint with joint space narrowing and hypertrophic change. Faint calcifications adjacent to the humeral head. Mild hypertrophic change along the inferior aspect of the glenohumeral joint. Dextroscoliosis of the imaged upper thoracic spine with multilevel degenerative changes. IMPRESSION: 1. Advanced degenerative disc disease at C3-C4, C4-C5 and C5-C6. 2. Moderate degenerative changes in the right shoulder. 3. Dextroscoliosis of the imaged upper thoracic spine with multilevel degenerative changes. 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 There is no evidence of misuse, abuse or diversion at this time. [employer] reviewed. Script sent for hydrocodone-acetaminophen 5-325 mg once a day sent with advanced date of 07/09/24. Patient has Narcan at home. Continue Meloxicam as needed. Discussed interventional treatments for bilateral knee and left shoulder pain, patient will notify our office if she is interested in injections. At this time, she states current opioid regime allows her to be less symptomatic and more functional. All questions were answered and the patient is in agreement of plan. Follow-up pill count in one month and sooner as needed. Medications: Refilled hydrocodone-acetaminophen 5-325 mg Partial Fill upon patient request. 1 tab PO DAILY 30 days PRN 30 tabs 0RF pain M47.812 - Spondylosis without myelopathy or radiculopathy, cervical region, M96.1 - Postlaminectomy syndrome, not elsewhere classified, Z79.891 - [employer] intermediary (current) use of opiate analgesic meloxicam TAKE 1 TABLET BY MOUTH DAILY NEEDED FOR SEVERE PAIN 30 tabs 0RF M25.511 - Pain in right shoulder, M47.812 - Spondylosis without myelopathy or radiculopathy, cervical region, M50.30 - Other cervical disc degeneration, unspecified cervical region Coding Level of Care Code Est Pt Level 4 (57064) Complex EM visit Add On G2211 Diagnoses Arthritis of left shoulder M19.012 Left shoulder pain M25.512 Lumbosacral spondylosis M47.817 Spondylosis of cervical spine M47.812 Opioid contract exists Z79.891 Chronic pain syndrome G89.4 Fibromyalgia M79.7
[2024-06-25 11:40] VITALS: BP 183/85; PULSE 70; O2SAT 97; BMI 36.8
== END 2024-06-25 11:43 | disposition home or self-care (01) ==
LOC: HO.PMC 11:30
PROVIDERS: PCP Internal Medicine; Visit Provider Nurse Practitioner Family
DX: M19.012 Primary osteoarthritis, left shoulder (principal); M25.512 Pain in left shoulder; M47.817 Spondylosis without myelopathy or radiculopathy, lumbosacral region; M47.812 Spondylosis without myelopathy or radiculopathy, cervical region; Z79.891 Long term (current) use of opiate analgesic; G89.4 Chronic pain syndrome; M79.7 Fibromyalgia
CPT/HCPCS: 99214; G2211

== ENCOUNTER → 2024-06-25 11:29 | Outpatient (BNVA) | payer MEDICARE, SELFPAY | PROVIDERS: PCP Internal Medicine; Visit Provider Nurse Practitioner Family | DX: Z51.81 Encounter for therapeutic drug level monitoring (principal); M19.012 Primary osteoarthritis, left shoulder; M25.512 Pain in left shoulder; M47.817 Spondylosis without myelopathy or radiculopathy, lumbosacral region; M47.812 Spondylosis without myelopathy or radiculopathy, cervical region; M79.7 Fibromyalgia; G89.4 Chronic pain syndrome; Z79.891 Long term (current) use of opiate analgesic | CPT/HCPCS: 99212 ==

== ENCOUNTER 2024-07-30 11:34 | Outpatient (AMB) | payer MEDICARE, SELFPAY ==
--- NOTE | 2024-07-30 11:36 | MHC.OFFVIS ---
Vital Signs 07/30/24 11:44 Height 5 ft 2 in Weight 202 lb 4 oz BMI 37.0 BP 194/86 H Blood Pressure Location Rt brachial Position Sitting Pulse 66 Pulse Source Pulse Oximeter Pulse Oximetry (%) 100 Oxygen Delivery Method Room Air Intake Visit Reasons: Pill Count Intake Note: Vivian comes in today for a pill count to hydrocodone-acetaminophen, patient should have 9 tablets and presents with 9.5 tablets which she last took 1/2 tablet today 07/30/24 at 9:30am. 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 Patient is supposed to have #9 pills, in her possession has #9.5 pills. This demonstrates a responsible attitude in regards to the medication regimen. Patient reports mild analgesia on her regimen. Denies any fever, chills, shortness of breaths, abdominal pain or groin, constipation, nausea, sedation, dizziness, urinary retention, weakness, bladder or bowel dysfunction, or saddle anesthesia. She reports severe pain in her left knee, which radiates down into her foot and is exacerbated by standing for long periods, walking up stairs, and damp weather conditions. The left knee pain has led her to use a cane and experience limited range of motion and tenderness. Denies any recent injuries, trauma, or fall. Her history includes osteoarthritis and osteopenia. She has found Vicodin once daily prn and meloxicam ineffective for knee pain relief. The patient has not had recent knee x-rays but agrees to have them done. Additionally, she reports left shoulder pain that affects her ability to perform certain motions, especially overhead reaching activities or lifting, and she previously experienced right shoulder pain. The left shoulder pain is described as severe and localized to anterior aspect of left shoulder. Past Procedures: 02/27/24: Right therapeutic SI joint injection-95% ongoing pain relief 09/13/23: Left Therapeutic GTB injection-100% ongoing pain relief [facility] Medical History Degeneration of lumbar intervertebral disc Obesity (BMI 35.0-39.9 without comorbidity) Chronic headaches Fibromyalgia Arthritis Anxiety Depression Osteoporosis Review of Systems Const Details: - Musculoskeletal: Reports severe left knee pain, radiating to the tibia and foot; reports left shoulder pain; denies recent knee or shoulder injuries - Neurological: Denies any significant neurological deficits - General: Reports difficulty sleeping due to pain All systems reviewed & are unremarkable except as noted in HPI and below Physical Exam Vital Signs: Last Vital Signs Pulse 66 07/30/24 11:44 BP 194/86 H 07/30/24 11:44 Pulse Ox 100 07/30/24 11:44 Oxygen Delivery Method Room Air 07/30/24 11:44 BMI result Body Mass Index 37.0 General: Appears afebrile. Alert and oriented. Mood and affect appropriate. Follows and participates in conversation appropriately. Respiratory effort is unlabored. No cough. Able to transition from sit to stand unassisted. Ambulates with bilaterally normal heel strike and toe off. Back/Spine/Pelvis Cervical Spine: loss of normal cervical lordosis, cervical muscular tenderness, pain with cervical ROM and No Cervical spine tenderness Extrem General: Yes capillary refill normal, Yes no clubbing, cyanosis or edema and Yes no calf tenderness Left upper extremity: shoulder/upper arm (Pain and decreased ROM with overhead reaches) Details: inspection abnormal and tenderness Location: of the A-C joint and over the subacromial bursa; no swelling Right lower extremity: knee Details: normal to inspection, tenderness Location: of the medial joint line and of the lateral joint line, normal ROM and crepitus; no swelling, no ecchymosis and no unusual warmth Left lower extremity: knee (Limited ROM due to pain) Details: normal to inspection, tenderness Location: of the patella, of the medial joint line, of the lateral joint line and of the proximal tibia Details: medially and along the midline, swelling Location: of the popliteal fossa and crepitus; no ecchymosis and no unusual warmth Psych Appearance: grossly normal Mental Status: mental status grossly normal Speech and movement: Normal speech and movement present Affect: normal affect Attitude: cooperative Thought process: Normal thought process present Thought content: Normal thought content present, suicidality (none), no hallucinations and No Depressive thoughts present Insight: Good insight present (Psych) Judgement: Good judgement present (Psych) Results Reviewed Results Reviewed: SPINE LUMBAR without CONTRAST 11/14/23 at [facility] INDICATION: Radiculopathy, lumbar region. Patient presents with right-sided lower back pain for years worsening the last two weeks. COMPARISON: None Available. FINDINGS: Normal lumbar alignment is demonstrated. Vertebral heights are well maintained. Bone marrow signal is within normal limits, and no suspicious osseous lesion is identified. Conus medullaris is unremarkable. Paraspinal soft tissues and visualized portions of the abdomen and pelvis are unremarkable. At L1-2 there is a small broad-based and right paracentral disc bulge as well as bilateral facet hypertrophy and thickening of the ligamentum flavum. No central canal or neuroforaminal stenosis is demonstrated. At L2-3 there is a small broad-based disc bulge and bilateral facet hypertrophy with thickening of the ligamentum flavum. No central canal or neuroforaminal stenosis is demonstrated. At L3-4 there is a small broad-based disc bulge and bilateral facet hypertrophy with thickening of the ligamentum flavum. This causes moderate central canal stenosis as well as mild left neuroforaminal narrowing. At L4-5 there is a small broad-based disc bulge and bilateral facet hypertrophy with thickening of the ligamentum flavum. This causes moderate central canal stenosis and mild left neuroforaminal narrowing. At L5-S1 there is no significant disc herniation or protrusion. There is bilateral facet hypertrophy. No central canal or neural foraminal stenosis is demonstrated. IMPRESSION: Multilevel degenerative disc and bony disease causing central canal and neuroforaminal stenosis as described. XR CERVICAL SPINE XR RIGHT SHOULDER 07/26/23 CLINICAL INFORMATION: Spondylolysis without myelopathy or radiculopathy, no injury, chest pain, right shoulder and neck. FINDINGS: CERVICAL SPINE: Bones are diffusely demineralized. Straightening of the normal cervical lordosis. Mild anterolisthesis of C3 on C4. Advanced degenerative changes with loss of disc space height and hypertrophic change at C3-C4, C4-C5 and C5-C6. C7 poorly visualized due to overlying soft tissue structures. Bilateral facet hypertrophy with neural foraminal encroachment at C3-C7 levels. RIGHT SHOULDER: [id number] degenerative changes in the acromioclavicular joint with joint space narrowing and hypertrophic change. Faint calcifications adjacent to the humeral head. Mild hypertrophic change along the inferior aspect of the glenohumeral joint. Dextroscoliosis of the imaged upper thoracic spine with multilevel degenerative changes. IMPRESSION: 1. Advanced degenerative disc disease at C3-C4, C4-C5 and C5-C6. 2. Moderate degenerative changes in the right shoulder. 3. Dextroscoliosis of the imaged upper thoracic spine with multilevel degenerative changes. Assessment & Plan Assessment & Plan (1) Bilateral knee pain: Code(s): M25.561 - Pain in right knee; M25.562 - Pain in left knee Category: Medical (2) Left shoulder pain: Code(s): M25.512 - Pain in left shoulder Category: Medical (3) Arthritis of left shoulder: Code(s): M19.012 - Primary osteoarthritis, left shoulder Category: Medical (4) Lumbosacral spondylosis: Code(s): M47.817 - Spondylosis without myelopathy or radiculopathy, lumbosacral region Category: Medical (5) Spondylosis of cervical spine: Code(s): M47.812 - Spondylosis without myelopathy or radiculopathy, cervical region Category: Medical (6) Opioid contract exists: Code(s): Z79.891 - [facility] (current) use of opiate analgesic Category: Medical (7) Chronic pain syndrome: Code(s): G89.4 - Chronic pain syndrome Category: Medical (8) Fibromyalgia: Code(s): M79.7 - Fibromyalgia Category: Medical Plan Patient has shown accountability for her medication regimen and the pill count was accurate.? There is no evidence of misuse, abuse or diversion at this time. [employer] reviewed. Script sent for hydrocodone-acetaminophen 5-325 mg with increased dose from daily to BID prn with advanced date of 08/02/24. Patient has Narcan at home. Continue Meloxicam as needed. Discussed interventional treatments for bilateral knee and left shoulder pain, will obtain knee and left shoulder xrays to assess joint health and potential Batista's cyst prior to potential diagnostic vs therapeutic (steroid and gel) injections. Emphasis is placed on maintaining adequate calcium and vitamin D intake due to her osteopenia. All questions were answered and the patient is in agreement of plan. Follow-up pill count in one month and sooner as needed. Patient was informed and verbally consented to the use of an ambient scribe for clinic note documentation during this visit. Orders: Orders XR knee RT 3V Today M25.561 - Pain in right knee, M25.562 - Pain in left knee XR knee LT 3V Today M25.561 - Pain in right knee, M25.562 - Pain in left knee XR shoulder LT min 2V Today M25.512 - Pain in left shoulder Medications: Changed From hydrocodone-acetaminophen 5-325 mg Partial Fill upon patient request. 1 tab PO DAILY 30 days PRN 30 tabs 0RF pain M47.812 - Spondylosis without myelopathy or radiculopathy, cervical region, M96.1 - Postlaminectomy syndrome, not elsewhere classified, Z79.891 - [facility] (current) use of opiate analgesic To hydrocodone-acetaminophen 5-325 mg Partial Fill upon patient request. 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
[2024-07-30 11:44] VITALS: BP 194/86; PULSE 66; O2SAT 100; BMI 37.0
== END 2024-07-30 11:59 | disposition home or self-care (01) ==
LOC: HO.PMC 11:35
PROVIDERS: PCP Internal Medicine; Visit Provider Nurse Practitioner Family
DX: M25.561 Pain in right knee (principal); M25.562 Pain in left knee; M25.512 Pain in left shoulder; M19.012 Primary osteoarthritis, left shoulder; M47.817 Spondylosis without myelopathy or radiculopathy, lumbosacral region; M47.812 Spondylosis without myelopathy or radiculopathy, cervical region; Z79.891 Long term (current) use of opiate analgesic; G89.4 Chronic pain syndrome; M79.7 Fibromyalgia
CPT/HCPCS: 99214; G2211

== ENCOUNTER 2024-07-30 11:34 | Outpatient (REF) | payer MEDICARE, SELFPAY ==
--- NOTE | ~2024-07-30 | XR_ITS ---
EXAMINATION: XR SHOULDER, LEFT CLINICAL INFORMATION: M25.512 - Pain in left shoulder COMPARISON: None available. TECHNIQUE: AP external rotation, Grashey, scapular Y, and axillary views of the left shoulder. FINDINGS: Degenerative changes in the acromioclavicular joint and the greater tuberosity near the supraspinatus tendon insertion. No acute cortical disruption or malalignment. No lytic or blastic lesions. XR/XR shoulder LT min 2V IMPRESSION: Mild degenerative changes, left shoulder. Electronically signed by: Diomedes Lee MD 07/30/2024 02:13 PM EDT
--- NOTE | ~2024-07-30 | XR_ITS ---
XR KNEE MERRITT 3V HISTORY: Right knee pain. COMPARISON: None. TECHNIQUE: AP view bilateral knees standing, lateral and patellofemoral views each knee. FINDINGS: RIGHT KNEE: No fracture, dislocation, or suspicious bone lesion. There is minimal medial compartment joint space narrowing. Preserved lateral compartment joint space. Mild to moderate narrowing of the lateral facet patellofemoral compartment. Mild lateral patellar tilt. No evidence of joint effusion. Soft tissues appear normal. LEFT KNEE: No fracture, dislocation, or suspicious bone lesion. There is minimal medial compartment joint space narrowing. Preserved lateral compartment joint space. Mild narrowing of the lateral facet patellofemoral compartment. Mild lateral patellar tilt. No evidence of joint effusion. Soft tissues appear normal. XR/XR Knee Merritt 3V IMPRESSION: RIGHT KNEE: 1. No acute bony abnormalities. 2. Mild medial compartment and mild to moderate patellofemoral compartment joint space narrowing. 3. No joint effusion. LEFT KNEE: 1. No acute bony abnormalities. 2. Mild medial and mild patellofemoral compartment joint space narrowing. 3. No joint effusion. Electronically signed by: Ion Andres MD 07/30/2024 02:43 PM EDT
== END 2024-07-30 11:35 | disposition home or self-care (01) ==
LOC: HO.XRAY 11:34
PROVIDERS: PCP Internal Medicine; Visit Provider Nurse Practitioner Family
DX: M25.512 Pain in left shoulder (principal); M19.012 Primary osteoarthritis, left shoulder; M25.561 Pain in right knee; M25.562 Pain in left knee; G89.4 Chronic pain syndrome; M47.817 Spondylosis without myelopathy or radiculopathy, lumbosacral region; M47.812 Spondylosis without myelopathy or radiculopathy, cervical region; M79.7 Fibromyalgia; Z79.891 Long term (current) use of opiate analgesic
CPT/HCPCS: 73030; 73562; 99212

== ENCOUNTER → 2024-07-30 12:17 | Outpatient (BNV) | payer MEDICARE, SELFPAY | PROVIDERS: PCP Internal Medicine; Visit Provider Radiology Diagnostic Radiology | DX: M25.512 Pain in left shoulder (principal); M17.11 Unilateral primary osteoarthritis, right knee | CPT/HCPCS: 73030; 73562 ==

== ENCOUNTER 2024-08-27 11:17 | Outpatient (AMB) | payer MEDICARE, SELFPAY ==
--- NOTE | 2024-08-27 11:22 | A.OFFVIS_ITS ---
Vital Signs 08/27/24 11:28 Height 5 ft 2 in Weight 199 lb 8 oz BMI 36.5 BP 148/71 H Blood Pressure Location Rt brachial Position Sitting Pulse 72 Pulse Source Pulse Oximeter Pulse Oximetry (%) 100 Oxygen Delivery Method Room Air Intake Visit Reasons: PILL COUNT Intake Note: Vivian comes in today for a pill count to hydrocodone-acetaminophen, patient should have 16 tablets and presents with 21.5 tablets which she last took 1/2 tablet today 08/27/24 at 9am. 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 Patient is supposed to have #16 pills, in her possession has #21.5 pills. This demonstrates a responsible attitude in regards to the medication regimen. Patient reports mild analgesia on her regimen. Denies any fever, chills, shortness of breaths, abdominal pain or groin, constipation, nausea, sedation, dizziness, urinary retention, weakness, bladder or bowel dysfunction, or saddle anesthesia. She reports a pain level of 6/10, affecting both the shoulder and knee, with the left knee being more severe. The shoulder x-ray indicated mild arthritis, while the knee x-ray showed mild to moderate arthritis. The patient has experienced severe pain and cramps in the left knee with radiation from anterior to posterior aspects for about a month, which has recently improved. The patient has been limping and cannot twist her leg in certain ways due to pain. She has been taking pain medication, which was doubled during a previous visit due to increased pain. She is not currently taking the medication as frequently since the pain has lessened. We discussed Orthopedic evaluation and therapeutic injections to alleviate her joint pain. Denies any recent cough, cold, infection, fever or any other significant changes in medical history since last office visit. Past Procedures: 02/27/24: Right therapeutic SI joint injection-95% ongoing pain relief 09/13/23: Left Therapeutic GTB injection-100% ongoing pain relief [facility] Medical History Degeneration of lumbar intervertebral disc Obesity (BMI 35.0-39.9 without comorbidity) Chronic headaches Fibromyalgia Arthritis Anxiety Depression Osteoporosis Review of Systems Const All systems reviewed & are unremarkable except as noted in HPI and below Physical Exam General: Appears afebrile. Alert and oriented. Mood and affect appropriate. Follows and participates in conversation appropriately. Respiratory effort is unlabored. No cough. Able to transition from sit to stand unassisted. Ambulates with bilaterally normal heel strike and toe off. Back/Spine/Pelvis Cervical Spine: loss of normal cervical lordosis, cervical muscular tenderness, pain with cervical ROM and No Cervical spine tenderness Extrem General: Yes capillary refill normal, Yes no clubbing, cyanosis or edema and Yes no calf tenderness Left upper extremity: shoulder/upper arm (Pain and decreased ROM with overhead reaches) Details: inspection abnormal and tenderness Location: of the A-C joint and over the subacromial bursa; no swelling Right lower extremity: knee Details: normal to inspection, tenderness Location: of the patella, of the medial joint line and of the lateral joint line, normal ROM and crepitus; no swelling, no ecchymosis and no unusual warmth Left lower extremity: knee (Limited ROM due to pain) Details: normal to inspection, tenderness Location: of the patella, of the medial joint line, of the lateral joint line and of the proximal tibia Details: medially and along the midline, swelling Location: of the popliteal fossa and crepitus; no ecchymosis and no unusual warmth Psych Appearance: grossly normal Mental Status: mental status grossly normal Speech and movement: Normal speech and movement present Affect: normal affect Attitude: cooperative Thought process: Normal thought process present Thought content: Normal thought content present, suicidality (none), no hallucinations and No Depressive thoughts present Insight: Good insight present (Psych) Judgement: Good judgement present (Psych) Results Reviewed Results Reviewed: XR SHOULDER, LEFT 07/30/24 CLINICAL INFORMATION: M25.512 - Pain in left shoulder COMPARISON: None available. TECHNIQUE: AP external rotation, Grashey, scapular Y, and axillary views of the left shoulder. FINDINGS: Degenerative changes in the acromioclavicular joint and the greater tuberosity near the supraspinatus tendon insertion. No acute cortical disruption or malalignment. No lytic or blastic lesions. IMPRESSION: Mild degenerative changes, left shoulder. XR KNEE BRENDA 3V 07/30/24 HISTORY: Right knee pain. COMPARISON: None. TECHNIQUE: AP view bilateral knees standing, lateral and patellofemoral views each knee. FINDINGS: RIGHT KNEE: No fracture, dislocation, or suspicious bone lesion. There is minimal medial compartment joint space narrowing. Preserved lateral compartment joint space. Mild to moderate narrowing of the lateral facet patellofemoral compartment. Mild lateral patellar tilt. No evidence of joint effusion. Soft tissues appear normal. LEFT KNEE: No fracture, dislocation, or suspicious bone lesion. There is minimal medial compartment joint space narrowing. Preserved lateral compartment joint space. Mild narrowing of the lateral facet patellofemoral compartment. Mild lateral patellar tilt. No evidence of joint effusion. Soft tissues appear normal. IMPRESSION: RIGHT KNEE: 1. No acute bony abnormalities. 2. Mild medial compartment and mild to moderate patellofemoral compartment joint space narrowing. 3. No joint effusion. LEFT KNEE: 1. No acute bony abnormalities. 2. Mild medial and mild patellofemoral compartment joint space narrowing. 3. No joint effusion. Assessment & Plan Assessment & Plan (1) Bilateral knee pain: Code(s): M25.561 - Pain in right knee; M25.562 - Pain in left knee Category: Medical (2) Arthritis of left shoulder: Code(s): M19.012 - Primary osteoarthritis, left shoulder Category: Medical (3) Left shoulder pain: Code(s): M25.512 - Pain in left shoulder Category: Medical (4) Bilateral primary osteoarthritis of knee: Code(s): M17.0 - Bilateral primary osteoarthritis of knee Category: Medical (5) Lumbosacral spondylosis: Code(s): M47.817 - Spondylosis without myelopathy or radiculopathy, lumbosacral region Category: Medical (6) Spondylosis of cervical spine: Code(s): M47.812 - Spondylosis without myelopathy or radiculopathy, cervical region Category: Medical (7) Opioid contract exists: Code(s): Z79.891 - manager terminal (current) use of opiate analgesic Category: Medical (8) Chronic pain syndrome: Code(s): G89.4 - Chronic pain syndrome Category: Medical (9) Fibromyalgia: Code(s): M79.7 - Fibromyalgia Category: Medical Plan Patient has shown accountability for her medication regimen and the pill count was accurate.? There is no evidence of misuse, abuse or diversion at this time. [employer] reviewed. Script sent for hydrocodone-acetaminophen 5-325 mg with increased dose from daily to BID prn with advanced date of 09/05/24. Patient has Narcan at home. Continue Meloxicam as needed. The plan includes considering an Orthopedic consultation to further evaluate the knee and shoulder pain, as x-rays showed mild to moderate arthritis and conservative treatments provide temporary relief. Cortisone and gel injections, physical therapy, genicular RFA vs Sprint PNS trial may be considered if the pain becomes unbearable, with prior authorization required for insurance coverage. All questions were answered and the patient is in agreement of plan. Follow-up pill count in 4-5 weeks and sooner as needed. Patient was informed and verbally consented to the use of an ambient scribe for clinic note documentation during this visit. Orders: Referrals Orthopedics Referral M17.0 - Bilateral primary osteoarthritis of knee, M19.012 - Primary osteoarthritis, left shoulder, M25.512 - Pain in left shoulder, M25.561 - Pain in right knee, M25.562 - Pain in left knee Medications: Refilled hydrocodone-acetaminophen 5-325 mg Partial Fill upon patient request. 1 tab PO BID PRN 60 tabs 0RF pain 30 days M47.812 - Spondylosis without myelopathy or radiculopathy, cervical region, M96.1 - Postlaminectomy syndrome, not elsewhere classified, Z79.891 - correction (current) use of opiate analgesic Coding Level of Care Code Est Pt Level 4 (24796) Complex EM visit Add On G2211 Diagnoses Bilateral knee pain M25.561; M25.562 Arthritis of left shoulder M19.012 Left shoulder pain M25.512 Bilateral primary osteoarthritis of knee M17.0 Lumbosacral spondylosis M47.817 Spondylosis of cervical spine M47.812 Opioid contract exists Z79.891 Chronic pain syndrome G89.4 Fibromyalgia M79.7
[2024-08-27 11:28] VITALS: BP 148/71; PULSE 72; O2SAT 100; BMI 36.5
== END 2024-08-27 11:40 | disposition home or self-care (01) ==
LOC: HO.PMC 11:18
PROVIDERS: PCP Internal Medicine; Visit Provider Nurse Practitioner Family
DX: M25.561 Pain in right knee (principal); M25.562 Pain in left knee; M19.012 Primary osteoarthritis, left shoulder; M25.512 Pain in left shoulder; M17.0 Bilateral primary osteoarthritis of knee; M47.817 Spondylosis without myelopathy or radiculopathy, lumbosacral region; M47.812 Spondylosis without myelopathy or radiculopathy, cervical region; Z79.891 Long term (current) use of opiate analgesic; G89.4 Chronic pain syndrome; M79.7 Fibromyalgia
CPT/HCPCS: 99214; G2211

== ENCOUNTER → 2024-08-27 11:17 | Outpatient (BNVA) | payer MEDICARE, SELFPAY | PROVIDERS: PCP Internal Medicine; Visit Provider Nurse Practitioner Family | DX: Z79.891 Long term (current) use of opiate analgesic (principal); M25.561 Pain in right knee; M25.562 Pain in left knee; M19.012 Primary osteoarthritis, left shoulder; M25.512 Pain in left shoulder; M17.0 Bilateral primary osteoarthritis of knee; M47.817 Spondylosis without myelopathy or radiculopathy, lumbosacral region; M47.812 Spondylosis without myelopathy or radiculopathy, cervical region; G89.4 Chronic pain syndrome; M79.7 Fibromyalgia | CPT/HCPCS: 99212 ==

== ENCOUNTER 2024-10-01 11:20 | Outpatient (AMB) | payer MEDICARE, SELFPAY ==
[2024-10-01 11:24] VITALS: BP 143/65; PULSE 70; RESP 16; O2SAT 95; BMI 30.9
--- NOTE | 2024-10-01 11:24 | MHC.OFFVIS ---
Vital Signs 10/01/24 11:24 Height 5 ft 7 in Weight 197 lb BMI 30.9 BP 143/65 H Blood Pressure Location Lt brachial Position Sitting Respiration 16 Pulse 70 Pulse Source Pulse Oximeter Pulse Oximetry (%) 95 Oxygen Delivery Method Room Air Intake Visit Reasons: pill count Intake Note: Pt states she last took vicodin 09/30/24 @ 3pm Allergies latex Allergy (Mild, Verified 10/01/24 11:25) burning Penicillins Allergy (Mild, Verified 10/01/24 11:25) Rash Sulfa (Sulfonamide Antibiotics) Allergy (Mild, Verified 10/01/24 11:25) Rash Medication List - Last Reconciled 10/01/24 by Shaniqua Juarez LPN cyclobenzaprine 5 mg PO TID PRN fluoxetine 60 mg PO QAM hydrocodone-acetaminophen 5-325 mg 1 tab PO BID PRN 30 days meloxicam TAKE 1 TABLET BY MOUTH DAILY NEEDED FOR SEVERE PAIN naloxone 4 mg/actuation (Narcan) 4 mg intranasal Q2M PRN topiramate 50 mg PO BID 90 days HPI Comments Details: Patient returns today for a pill count. Patient is supposed to have #10 pills, in her possession has #23.5 pills. This demonstrates a responsible attitude in regards to the medication regimen. Patient reports adequate analgesia on her regimen and is interested to decrease her dose to once daily as needed. Denies any fever, chills, shortness of breaths, abdominal pain or groin, constipation, nausea, sedation, dizziness or urinary retention. Patient reports improvement in her left knee symptoms. She reports her left knee pain originates in left hip and extends to left lateral knee. She has been doing IT band exercises from online search and notes symptoms have improved. Patient is frustrated with the monthly pill counts due to the [id number] copay expenses. She is considering reaching out to her primary care provider for opioid prescribing to continue her medical pain management. Patient inquired about the possibility of extending the pill count interval to every two months. However, due to Vicodin being a controlled substance class II, it is necessary for her to be seen every 4 weeks, we have been extending it to 5 weeks for some months per her request. We discussed opioid rotation to another medication such as tramadol or consider Belbuca film or Butrans patch which will allow patient to be seen every 2 months. Patient prefers to continue with Vicodin as this has been most effective for her pain control. Past Procedures: 02/27/24: Right therapeutic SI joint injection-95% ongoing pain relief 09/13/23: Left Therapeutic GTB injection-100% ongoing pain relief [facility] Medical History Degeneration of lumbar intervertebral disc Obesity (BMI 35.0-39.9 without comorbidity) Chronic headaches Fibromyalgia Arthritis Anxiety Depression Osteoporosis Review of Systems Const All systems reviewed & are unremarkable except as noted in HPI and below Physical Exam Vital Signs: Last Vital Signs Pulse 70 10/01/24 11:24 Resp 16 10/01/24 11:24 BP 143/65 H 10/01/24 11:24 Pulse Ox 95 10/01/24 11:24 Oxygen Delivery Method Room Air 10/01/24 11:24 BMI result Body Mass Index 30.9 General: Appears afebrile. Alert and oriented. Mood and affect appropriate. Follows and participates in conversation appropriately. Respiratory effort is unlabored. No cough. Able to transition from sit to stand unassisted. Ambulates with bilaterally normal heel strike and toe off. Eyes General: appearance normal, both eyes and all related structures Psych Appearance: grossly normal Mental Status: mental status grossly normal Speech and movement: Normal speech and movement present Affect: normal affect Attitude: cooperative Thought process: Normal thought process present Thought content: Normal thought content present, suicidality (none), no hallucinations and No Depressive thoughts present Insight: Good insight present (Psych) Judgement: Good judgement present (Psych) Results Reviewed Results Reviewed: XR SHOULDER, LEFT 07/30/24 CLINICAL INFORMATION: M25.512 - Pain in left shoulder COMPARISON: None available. TECHNIQUE: AP external rotation, Grashey, scapular Y, and axillary views of the left shoulder. FINDINGS: Degenerative changes in the acromioclavicular joint and the greater tuberosity near the supraspinatus tendon insertion. No acute cortical disruption or malalignment. No lytic or blastic lesions. IMPRESSION: Mild degenerative changes, left shoulder. XR KNEE BRNEDA 3V 07/30/24 HISTORY: Right knee pain. COMPARISON: None. TECHNIQUE: AP view bilateral knees standing, lateral and patellofemoral views each knee. FINDINGS: RIGHT KNEE: No fracture, dislocation, or suspicious bone lesion. There is minimal medial compartment joint space narrowing. Preserved lateral compartment joint space. Mild to moderate narrowing of the lateral facet patellofemoral compartment. Mild lateral patellar tilt. No evidence of joint effusion. Soft tissues appear normal. LEFT KNEE: No fracture, dislocation, or suspicious bone lesion. There is minimal medial compartment joint space narrowing. Preserved lateral compartment joint space. Mild narrowing of the lateral facet patellofemoral compartment. Mild lateral patellar tilt. No evidence of joint effusion. Soft tissues appear normal. IMPRESSION: RIGHT KNEE: 1. No acute bony abnormalities. 2. Mild medial compartment and mild to moderate patellofemoral compartment joint space narrowing. 3. No joint effusion. LEFT KNEE: 1. No acute bony abnormalities. 2. Mild medial and mild patellofemoral compartment joint space narrowing. 3. No joint effusion. Assessment & Plan Assessment & Plan (1) Bilateral knee pain: Code(s): M25.561 - Pain in right knee; M25.562 - Pain in left knee Category: Medical (2) Bilateral primary osteoarthritis of knee: Code(s): M17.0 - Bilateral primary osteoarthritis of knee Category: Medical (3) Lumbosacral spondylosis: Code(s): M47.817 - Spondylosis without myelopathy or radiculopathy, lumbosacral region Category: Medical (4) Spondylosis of cervical spine: Code(s): M47.812 - Spondylosis without myelopathy or radiculopathy, cervical region Category: Medical (5) Opioid contract exists: Code(s): Z79.891 - senior care (current) use of opiate analgesic Category: Medical (6) Chronic pain syndrome: Code(s): G89.4 - Chronic pain syndrome Category: Medical (7) Fibromyalgia: Code(s): M79.7 - Fibromyalgia Category: Medical Plan Patient has shown accountability for her medication regimen and the pill count was accurate.? There is no evidence of misuse, abuse or diversion at this time. Neurodynt reviewed. Script sent for hydrocodone-acetaminophen 5-325 mg with decreased dose from BID to QD prn with advanced date of 10/22/24. Patient has Narcan at home. Due to Vicodin being controlled class II, the patient is required to adhere to monthly pill counts and follow-up visits every 4 to 5 weeks. The patient is advised to discuss with her primary care provider regarding the possibility of opioid prescribing to manage her pain and potentially reduce [id number] expenses. All questions were answered and the patient is in agreement of plan. Follow-up pill count in 4-5 weeks and sooner as needed. Medications: Changed From hydrocodone-acetaminophen 5-325 mg Partial Fill upon patient request. 1 tab PO BID 30 days PRN 60 tabs 0RF pain M47.812 - Spondylosis without myelopathy or radiculopathy, cervical region, M96.1 - Postlaminectomy syndrome, not elsewhere classified, Z79.891 - terminal superintendent (current) use of opiate analgesic To hydrocodone-acetaminophen 5-325 mg Partial Fill upon patient request. 1 tab PO DAILY PRN 30 tabs 0RF pain 30 days M47.812 - Spondylosis without myelopathy or radiculopathy, cervical region, M96.1 - Postlaminectomy syndrome, not elsewhere classified, Z79.891 - senior care (current) use of opiate analgesic Coding Level of Care Code Est Pt Level 4 (09050) Complex EM visit Add On G2211 Diagnoses Bilateral knee pain M25.561; M25.562 Bilateral primary osteoarthritis of knee M17.0 Lumbosacral spondylosis M47.817 Spondylosis of cervical spine M47.812 Opioid contract exists Z79.891 Chronic pain syndrome G89.4 Fibromyalgia M79.7
== END 2024-10-01 11:41 | disposition home or self-care (01) ==
LOC: HO.PMC 11:20
PROVIDERS: PCP Internal Medicine; Visit Provider Nurse Practitioner Family
DX: M25.561 Pain in right knee (principal); M25.562 Pain in left knee; M17.0 Bilateral primary osteoarthritis of knee; M47.817 Spondylosis without myelopathy or radiculopathy, lumbosacral region; M47.812 Spondylosis without myelopathy or radiculopathy, cervical region; Z79.891 Long term (current) use of opiate analgesic; G89.4 Chronic pain syndrome; M79.7 Fibromyalgia
CPT/HCPCS: 99214; G2211

== ENCOUNTER → 2024-10-01 11:20 | Outpatient (BNVA) | payer MEDICARE, SELFPAY | PROVIDERS: PCP Internal Medicine; Visit Provider Nurse Practitioner Family | DX: M17.0 Bilateral primary osteoarthritis of knee (principal); M25.512 Pain in left shoulder; M25.561 Pain in right knee; M25.562 Pain in left knee; M79.7 Fibromyalgia; G89.4 Chronic pain syndrome; M47.817 Spondylosis without myelopathy or radiculopathy, lumbosacral region; M47.812 Spondylosis without myelopathy or radiculopathy, cervical region; M81.0 Age-related osteoporosis without current pathological fracture; Z51.81 Encounter for therapeutic drug level monitoring; Z79.891 Long term (current) use of opiate analgesic | CPT/HCPCS: 99212 ==

== ENCOUNTER 2024-10-27 08:15 | Outpatient (REF) | payer MEDICARE, SELFPAY ==
--- NOTE | ~2024-10-27 | XR_ITS ---
EXAMINATION: XR KNEE, LEFT CLINICAL INFORMATION: M25.562 - Pain in left knee COMPARISON: July 30, 2024. TECHNIQUE: AP lateral and sunrise views of the left knee. FINDINGS: No acute cortical disruption or malalignment. Joint space narrowing involving mostly the medial compartment. Small marginal osteophyte formation in the medial femoral condyle and medial tibial plateau. No suprapatellar bursa joint effusion. No lytic or blastic lesions. XR/XR knee LT 3V IMPRESSION: Bicompartmental osteoarthrosis/osteoarthritis involving mostly the medial compartment. Electronically signed by: Diomedes Lee MD 10/27/2024 02:12 PM EDT
== END 2024-10-27 08:16 | disposition home or self-care (01) ==
LOC: HO.HOSX 08:15
PROVIDERS: Visit Provider Orthopaedic Surgery
DX: M48.02 Spinal stenosis, cervical region (principal); M79.602 Pain in left arm; M25.562 Pain in left knee; M25.462 Effusion, left knee; Z79.899 Other long term (current) drug therapy
CPT/HCPCS: 73562; 99202

== ENCOUNTER 2024-10-27 14:00 | Outpatient (AMB) | payer MEDICARE, SELFPAY ==
--- NOTE | 2024-10-27 14:11 | A.OFFVIS_ITS ---
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 The patient states that her neck pain has gotten worse over the last several years. The patient states that sev eral years ago she was seen by a neck specialist. She was told that neck surgery at that time would be ?too risky?. She also reports intermittent weakness in her left leg. She states that she has difficulty going up and down the stairs because of the weakness. She has failed the last 6 weeks of conservative treatment which has included Tylenol, anti-inflammatory medicines, Vicodin, a home exercise program and physical therapy exercises. She has had multiple injections in the past which gave her only temporary relief. Allergies latex Allergy (Mild, Verified 10/27/24 14:19) burning Penicillins Allergy (Mild, Verified 10/27/24 14:19) Rash Sulfa (Sulfonamide Antibiotics) Allergy (Mild, Verified 10/27/24 14:19) Rash Medication List - Last Reconciled 10/27/24 by Kishan Phillip MD cyclobenzaprine 5 mg PO TID PRN fluoxetine 60 mg PO QAM hydrocodone-acetaminophen 5-325 mg 1 tab PO DAILY PRN 30 days meloxicam TAKE 1 TABLET BY MOUTH DAILY NEEDED FOR SEVERE PAIN naloxone 4 mg/actuation (Narcan) 4 mg intranasal Q2M PRN topiramate 50 mg PO BID 90 days [facility] Medical History Degeneration of lumbar intervertebral disc Obesity (BMI 35.0-39.9 without comorbidity) Chronic headaches Fibromyalgia Arthritis Anxiety Depression Osteoporosis Physical Exam Neck Other: Cervical spine examination shows left-sided paraspinal muscle tenderness, pain with range of motion, positive Spurling's test, 4/5 strength with testing of her left biceps and wrist extensors when compared to 5/5 strength on her right side Extrem Other: Left knee examination shows a minimal effusion, minimal crepitus with range of motion, tenderness along her medial joint line, positive Ruperto's test, no instability Results Reviewed Results Reviewed: Standing full weight-bearing x-rays of the patient's left knee show mild diffuse joint space narrowing, no acute bony abnormalities X-rays of the patient's cervical spine taken previously show severe degenerative disc disease most significant at level C4-C5 and C5-C6 Assessment & Plan Assessment & Plan (1) Cervical stenosis of spinal canal: Code(s): M48.02 - Spinal stenosis, cervical region Category: Medical Plan Ms. Strickland presents with progressively worsening neck pain as well as a ssociated left arm and left leg weakness possibly due to cervical stenosis. Thus, I will send her for an MRI of her cervical spine for further evaluation. I will see her back once the MRI is completed to discuss the findings and treatment options. We will hold off on a left knee MRI for now. She will contact me prior to the MRI should her symptoms worsen in any way. Feel free to call me at any time should questions regarding her orthopedic management arise. I spent 20 minutes in reviewing the patient's records and imaging studies, seeing the patient and documenting in the medical record. Orders: Orders XR knee LT 3V Today M25.562 - Pain in left knee MR cervical spine wo con 10/28/24 M48.02 - Spinal stenosis, cervical region Coding Level of Care Code New Pt Level 3 (47946) Complex EM visit Add On G2211 Diagnoses Cervical stenosis of spinal canal M48.02
[2024-10-27 14:18] VITALS: BMI 33.8
== END 2024-10-27 14:30 | disposition home or self-care (01) ==
LOC: HO.HOS 14:00
PROVIDERS: PCP Internal Medicine; Visit Provider Orthopaedic Surgery
DX: M48.02 Spinal stenosis, cervical region (principal)
CPT/HCPCS: 99203; G2211

== ENCOUNTER → 2024-10-27 14:02 | Outpatient (BNV) | payer MEDICARE, SELFPAY | PROVIDERS: Visit Provider Radiology Diagnostic Radiology | DX: M17.12 Unilateral primary osteoarthritis, left knee (principal) | CPT/HCPCS: 73562 ==

== ENCOUNTER 2024-11-05 11:17 | Outpatient (AMB) | payer MEDICARE, SELFPAY ==
[2024-11-05 11:23] VITALS: BP 153/79; PULSE 72; O2SAT 96; BMI 36.6
--- NOTE | 2024-11-05 11:23 | MHC.OFFVIS ---
Vital Signs 11/05/24 11:23 Height 5 ft 2 in Weight 200 lb 4 oz BMI 36.6 BP 153/79 H Blood Pressure Location Lt brachial Position Sitting Pulse 72 Pulse Source Monitor Pulse Oximetry (%) 96 Oxygen Delivery Method Room Air Intake Visit Reasons: PILL COUNT/ random UDS Allergies latex Allergy (Mild, Verified 10/27/24 14:19) burning Penicillins Allergy (Mild, Verified 10/27/24 14:19) Rash Sulfa (Sulfonamide Antibiotics) Allergy (Mild, Verified 10/27/24 14:19) Rash HPI Comments Details: Patient returns today for a pill count. Patient is supposed to have #17 pills, in her possession has #17 pills. This demonstrates a responsible attitude in regards to the medication regimen. Patient reports adequate analgesia on her regimen and is interested to decrease her dose to once daily as needed. Denies any fever, chills, shortness of breaths, abdominal pain or groin, constipation, nausea, sedation, dizziness or urinary retention. Patient reports worsening left knee pain. She also reports chronic neck pain with left sided radicular symptoms and has pending cervical MRI per recent Orthopedic evaluation. Patient is frustrated with the monthly pill counts and due to the [id number] copay expenses as well as random UDS due today. She is considering reaching out to her primary care provider for opioid prescribing to continue her medical pain management. We will reach out to her PCP office today as well for potential PCP taking over opioid prescribing. Due to Vicodin being a controlled substance class II, it is necessary for her to be seen every 4 weeks, we have been extending it to 5 weeks for most months per her request. We discussed opioid rotation to another medication such as tramadol or consider Belbuca film or Butrans patch which will allow patient to be seen every 2 months. Patient prefers to continue with Vicodin as this has been most effective for her pain control. Past Procedures: 02/27/24: Right therapeutic SI joint injection-95% ongoing pain relief 09/13/23: Left Therapeutic GTB injection-100% ongoing pain relief [facility] Medical History Degeneration of lumbar intervertebral disc Obesity (BMI 35.0-39.9 without comorbidity) Chronic headaches Fibromyalgia Arthritis Anxiety Depression Osteoporosis Review of Systems Const All systems reviewed & are unremarkable except as noted in HPI and below Physical Exam Vital Signs: BMI result Body Mass Index 36.6 General: Appears afebrile. Alert and oriented. Mood and affect appropriate. Follows and participates in conversation appropriately. Respiratory effort is unlabored. No cough. Able to transition from sit to stand unassisted. Ambulates with bilaterally normal heel strike and toe off. Eyes General: appearance normal, both eyes and all related structures Psych Appearance: grossly normal and well kempt Mental Status: mental status grossly normal Speech and movement: Normal speech and movement present and Clear speech present Affect: normal affect and Sad affect present Attitude: cooperative Thought process: Normal thought process present Thought content: Normal thought content present, suicidality (none), no hallucinations and Depressive thoughts present Insight: Good insight present (Psych) Judgement: Good judgement present (Psych) Results Reviewed Results Reviewed: No new imaging reports are available for review today. 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 There is no evidence of misuse, abuse or diversion at this time. [employer] reviewed. Will obtain random UDS today. Script sent for hydrocodone-acetaminophen 5-325 mg QD prn with advanced date of 11/21/24. Patient has Narcan at home. Due to Vicodin being controlled class II, the patient is required to adhere to monthly pill counts and follow-up visits every 4 to 5 weeks. The patient is advised to discuss with her primary care provider regarding the possibility of opioid prescribing to manage her pain and potentially reduce [id number]-pc-[id number] expenses. All questions were answered and the patient is in agreement of plan. Follow-up pill count in 4-5 weeks/UDS review and sooner as needed. Medications: Refilled hydrocodone-acetaminophen 5-325 mg Partial Fill upon patient request. 1 tab PO DAILY PRN 30 tabs 0RF pain 30 days M47.812 - Spondylosis without myelopathy or radiculopathy, cervical region, M96.1 - Postlaminectomy syndrome, not elsewhere classified, Z79.891 - penitentiary (current) use of opiate analgesic Coding Level of Care Code Est Pt Level 4 (47844) Complex EM visit Add On G2211 Diagnoses Bilateral knee pain M25.561; M25.562 Bilateral primary osteoarthritis of knee M17.0 Lumbosacral spondylosis M47.817 Spondylosis of cervical spine M47.812 Opioid contract exists Z79.891 Chronic pain syndrome G89.4 Fibromyalgia M79.7
== END 2024-11-05 11:42 | disposition home or self-care (01) ==
LOC: HO.PMC 11:18
PROVIDERS: PCP Internal Medicine; Visit Provider Nurse Practitioner Family
DX: M25.561 Pain in right knee (principal); M25.562 Pain in left knee; M17.0 Bilateral primary osteoarthritis of knee; M47.817 Spondylosis without myelopathy or radiculopathy, lumbosacral region; M47.812 Spondylosis without myelopathy or radiculopathy, cervical region; Z79.891 Long term (current) use of opiate analgesic; G89.4 Chronic pain syndrome; M79.7 Fibromyalgia
CPT/HCPCS: 99214; G2211

== ENCOUNTER → 2024-11-05 11:17 | Outpatient (BNVA) | payer MEDICARE, SELFPAY | PROVIDERS: PCP Internal Medicine; Visit Provider Nurse Practitioner Family | DX: M17.0 Bilateral primary osteoarthritis of knee (principal); M25.561 Pain in right knee; M25.562 Pain in left knee; G89.4 Chronic pain syndrome; M79.7 Fibromyalgia; M47.817 Spondylosis without myelopathy or radiculopathy, lumbosacral region; M47.812 Spondylosis without myelopathy or radiculopathy, cervical region; Z51.81 Encounter for therapeutic drug level monitoring; Z79.891 Long term (current) use of opiate analgesic | CPT/HCPCS: 99212 ==

== ENCOUNTER 2024-12-10 11:17 | Outpatient (AMB) | payer MEDICARE, SELFPAY ==
--- NOTE | 2024-12-10 11:19 | MHC.OFFVIS ---
Vital Signs 12/10/24 11:27 Height 5 ft 2 in Weight 198 lb 4 oz BMI 36.3 BP 141/76 H Blood Pressure Location Rt brachial Position Sitting Pulse 67 Pulse Source Pulse Oximeter Pulse Oximetry (%) 97 Oxygen Delivery Method Room Air Intake Visit Reasons: PILL COUNT Intake Note: Vivian comes in today for ap ill count to hydrocodone-acetaminophen, patient should have 13 tablets and presents with 14 tablets which she last took 1/2 tablet last night 12/09/24 at 8pm. 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 Patient is supposed to have #13 pills, in her possession has #14 pills. This demonstrates a responsible attitude in regards to the medication regimen. Patient reports adequate analgesia on her regimen and reports it does not take all of her pain away but allows her to functions and to be less symptomatic without significant side effects. Denies any fever, chills, shortness of breaths, abdominal pain or groin, constipation, nausea, sedation, dizziness or urinary retention. Patient continuous to endorse chronic neck pain with left sided radicular symptoms and has pending cervical MRI per recent Orthopedic evaluation. She has not completed MRI due to high copay costs. Patient also reports financial concerns regarding monthly pill counts and due to the [id number] copay expenses. She is considering reaching out to her primary care provider for opioid prescribing to continue her medical pain management. discussed opioid rotation to another medication such as tramadol or consider Belbuca film or Butrans patch which will allow patient to be seen every 2 months. Patient prefers to continue with Vicodin as this has been most effective for her pain control. Past Procedures: 02/27/24: Right therapeutic SI joint injection-95% ongoing pain relief 09/13/23: Left Therapeutic GTB injection-100% ongoing pain relief [facility] Medical History Degeneration of lumbar intervertebral disc Obesity (BMI 35.0-39.9 without comorbidity) Chronic headaches Fibromyalgia Arthritis Anxiety Depression Osteoporosis Review of Systems Const All systems reviewed & are unremarkable except as noted in HPI and below Physical Exam Vital Signs: Last Vital Signs Pulse 67 12/10/24 11:27 BP 141/76 H 12/10/24 11:27 Pulse Ox 97 12/10/24 11:27 Oxygen Delivery Method Room Air 12/10/24 11:27 BMI result Body Mass Index 36.3 General: Appears afebrile. Alert and oriented. Mood and affect appropriate. Follows and participates in conversation appropriately. Respiratory effort is unlabored. No cough. Able to transition from sit to stand unassisted. Ambulates with bilaterally normal heel strike and toe off. Eyes General: appearance normal, both eyes and all related structures Psych Appearance: grossly normal and well kempt Mental Status: mental status grossly normal Speech and movement: Normal speech and movement present and Clear speech present Affect: normal affect and Sad affect present Attitude: cooperative Thought process: Normal thought process present Thought content: Normal thought content present, suicidality (none), no hallucinations and Depressive thoughts present Insight: Good insight present (Psych) Judgement: Good judgement present (Psych) Results Reviewed Results Reviewed: MR SPINE LUMBAR without CONTRAST 11/14/23 at [facility] INDICATION: Radiculopathy, lumbar region. Patient presents with right-sided lower back pain for years worsening the last two weeks. COMPARISON: None Available. FINDINGS: Normal lumbar alignment is demonstrated. Vertebral heights are well maintained. Bone marrow signal is within normal limits, and no suspicious osseous lesion is identified. Conus medullaris is unremarkable. Paraspinal soft tissues and visualized portions of the abdomen and pelvis are unremarkable. At L1-2 there is a small broad-based and right paracentral disc bulge as well as bilateral facet hypertrophy and thickening of the ligamentum flavum. No central canal or neuroforaminal stenosis is demonstrated. At L2-3 there is a small broad-based disc bulge and bilateral facet hypertrophy with thickening of the ligamentum flavum. No central canal or neuroforaminal stenosis is demonstrated. At L3-4 there is a small broad-based disc bulge and bilateral facet hypertrophy with thickening of the ligamentum flavum. This causes moderate central canal stenosis as well as mild left neuroforaminal narrowing. At L4-5 there is a small broad-based disc bulge and bilateral facet hypertrophy with thickening of the ligamentum flavum. This causes moderate central canal stenosis and mild left neuroforaminal narrowing. At L5-S1 there is no significant disc herniation or protrusion. There is bilateral facet hypertrophy. No central canal or neural foraminal stenosis is demonstrated. IMPRESSION: Multilevel degenerative disc and bony disease causing central canal and neuroforaminal stenosis as described. XR CERVICAL SPINE XR RIGHT SHOULDER 07/26/23 CLINICAL INFORMATION: Spondylolysis without myelopathy or radiculopathy, no injury, chest pain, right shoulder and neck. FINDINGS: CERVICAL SPINE: Bones are diffusely demineralized. Straightening of the normal cervical lordosis. Mild anterolisthesis of C3 on C4. Advanced degenerative changes with loss of disc space height and hypertrophic change at C3-C4, C4-C5 and C5-C6. C7 poorly visualized due to overlying soft tissue structures. Bilateral facet hypertrophy with neural foraminal encroachment at C3-C7 levels. RIGHT SHOULDER: Knbu-lc-[id number] degenerative changes in the acromioclavicular joint with joint space narrowing and hypertrophic change. Faint calcifications adjacent to the humeral head. Mild hypertrophic change along the inferior aspect of the glenohumeral joint. Dextroscoliosis of the imaged upper thoracic spine with multilevel degenerative changes. IMPRESSION: 1. Advanced degenerative disc disease at C3-C4, C4-C5 and C5-C6. 2. Moderate degenerative changes in the right shoulder. 3. Dextroscoliosis of the imaged upper thoracic spine with multilevel degenerative changes. Assessment & Plan Assessment & Plan (1) Bilateral knee pain: Code(s): M25.561 - Pain in right knee; M25.562 - Pain in left knee Category: Medical (2) Bilateral primary osteoarthritis of knee: Code(s): M17.0 - Bilateral primary osteoarthritis of knee Category: Medical (3) Lumbosacral spondylosis: Code(s): M47.817 - Spondylosis without myelopathy or radiculopathy, lumbosacral region Category: Medical (4) Spondylosis of cervical spine: Code(s): M47.812 - Spondylosis without myelopathy or radiculopathy, cervical region Category: Medical (5) Opioid contract exists: Code(s): Z79.891 - retirement (current) use of opiate analgesic Category: Medical (6) Chronic pain syndrome: Code(s): G89.4 - Chronic pain syndrome Category: Medical (7) Fibromyalgia: Code(s): M79.7 - Fibromyalgia Category: Medical Plan Patient has shown accountability for her medication regimen and the pill count was accurate.? There is no evidence of misuse, abuse or diversion at this time. [employer] reviewed. Recent random UDS was concordant. Script sent for hydrocodone-acetaminophen 5-325 mg QD prn with advanced date of 12/22/24. Patient has Narcan at home. The patient plans to discuss with her primary care provider regarding the possibility of opioid prescribing to manage her pain and potentially reduce [id number] expenses. All questions were answered and the patient is in agreement of plan. Follow-up pill count in 4-5 weeks and sooner as needed. Medications: Refilled hydrocodone-acetaminophen 5-325 mg Partial Fill upon patient request. 1 tab PO DAILY PRN 30 tabs 0RF pain 30 days M47.812 - Spondylosis without myelopathy or radiculopathy, cervical region, M96.1 - Postlaminectomy syndrome, not elsewhere classified, Z79.891 - retirement (current) use of opiate analgesic Coding Level of Care Code Est Pt Level 4 (03445) Complex EM visit Add On G2211 Diagnoses Bilateral knee pain M25.561; M25.562 Bilateral primary osteoarthritis of knee M17.0 Lumbosacral spondylosis M47.817 Spondylosis of cervical spine M47.812 Opioid contract exists Z79.891 Chronic pain syndrome G89.4 Fibromyalgia M79.7
[2024-12-10 11:27] VITALS: BP 141/76; PULSE 67; O2SAT 97; BMI 36.3
== END 2024-12-10 11:38 | disposition home or self-care (01) ==
LOC: HO.PMC 11:18
PROVIDERS: PCP Internal Medicine; Visit Provider Nurse Practitioner Family
DX: M25.561 Pain in right knee (principal); M25.562 Pain in left knee; M17.0 Bilateral primary osteoarthritis of knee; M47.817 Spondylosis without myelopathy or radiculopathy, lumbosacral region; M47.812 Spondylosis without myelopathy or radiculopathy, cervical region; Z79.891 Long term (current) use of opiate analgesic; G89.4 Chronic pain syndrome; M79.7 Fibromyalgia
CPT/HCPCS: 99214; G2211

== ENCOUNTER → 2024-12-10 11:17 | Outpatient (BNVA) | payer MEDICARE, SELFPAY | PROVIDERS: PCP Internal Medicine; Visit Provider Nurse Practitioner Family | DX: M25.561 Pain in right knee (principal); M25.562 Pain in left knee; M17.0 Bilateral primary osteoarthritis of knee; M47.817 Spondylosis without myelopathy or radiculopathy, lumbosacral region; M47.812 Spondylosis without myelopathy or radiculopathy, cervical region; G89.4 Chronic pain syndrome; M79.7 Fibromyalgia; Z79.891 Long term (current) use of opiate analgesic | CPT/HCPCS: 99212 ==